=== PATIENT | male | born 1955 | race Caucasian/White ===

== ENCOUNTER 2025-02-26 11:40 | Outpatient (AMB) | payer MEDICARE, BC, SELFPAY ==
--- OUTSIDE RECORDS SUMMARY | 2024-03-17 04:30 | XMS_ITS ---
[facility] Organization [facility] Astrid craven [place] Address [address] [place] [address] Care Team Providers Care Clerk Rating Name Role Phone Lizz Lopez Primary Care Provider Unavail able Black, Gretel Unavailable [phone] Allergies No Known Allergies REASON FOR VISIT Pcp- 01/29, At Risk Footcare Medications Medication SIG (Take, Route, Frequency, Duration) Notes Start Date End Date Status Metoprolol Succinate ER 25 MG 1 tablet Orally Once a day Active Fluticasone Propionate 50 MCG/ACT 1 spray in each nostril Nasally Once a day Active Fluticasone Propionate (Inhal) Not-Taking Multivitamin - 1 tablet Orally Once a day Active Marijuana approved for medical use as prescribed Active Vitamin B-12 1000 MCG 1 tablet Orally On ce a day Active Vitamin D-3 25 MCG (1000 UT) 1 capsule Orally Once a day Active Terazosin HCl 5 MG 1 capsule at bedtime Orally Once a day Active clonazePAM 0.5 MG 1 tablet Orally Once a day Active Rosuvastatin Calcium 20 MG 1 tablet Oral ly Once a day Active Desvenlafaxine ER 100 MG 1 tablet Orally Once a day Active Gabapentin 600 MG 1 tablet Orally Once a day Active Dutasteride 0.5 MG 1 capsule Orally Onc e a day Active cycloSPORINE 0.05 % 1 drop into affected eye Ophthalmic Twice a day Active Omeprazole 20 MG 1 capsule 30 minutes before morning meal Orally Once a day Active Eliquis 2.5 MG as directed Orally Active metFORMIN HCl 500 MG 1 tablet with a umair l Orally twice a day Active Social History Tobacco Use: Social History Observation Description Date Details (start date - stop date) Former Smoker NA - NA Tobacco use other than smoking: Question Answer Notes Are you an other tobacco user? No Tobacco Control (Standard) Question Answer Notes Tobacco use: Former smoker Additional Findings: Tobacco non-user Ex-cigaret te smoker AUDIT-C (Standard) Question Answer Notes Did you have a drink containing alcohol in the p ast year? No Points 0 Interpretation Negative Problems Problem Type SNOMED Code ICD Code Onset Dates Problem Status W/U Status Risk Notes Problem Polyneuropathy due to type 2 diabetes mellitus (268096872) Type 2 diabetes mellitus with diabetic polyneuropathy (E11.42) Active confirmed Problem Essential hypertension (78481683) Essential hypertension (I10) Active confirmed Vital Signs Height 5ft 7in in 03/17/2024 Weight 185 lbs 03/17/2024 BMI 28.97 kg/m2 03/17/2024 Blood pressure systolic 127 mm Hg 03/17/20 24 Blood pressure diastolic 73 mm Hg 024 Heart Rate 83 /min 03/17/2024 Encounters Encounter Location Date Provider Diagnosis [facility] [address] 03/17/2024 Gretel Black Type 2 diabetes rosamaria itus with diabetic polyneuropathy E11.42 and Tinea unguium B35.1 Assessments Encounter Date Diagnosis (ICD Code) Assessment Notes Treatment Notes Treatment Clinical Notes Section Notes 03/17/2024 Type 2 diabetes mellitus with diabetic polyneuropathy (ICD-10 - E11.42) 03/17/2024 Tinea unguium (ICD-10 - B35.1) Plan Of Treatment Next Appt Details Follow Up: prn, Reason: Procedure Notes * Category Sub-Category Detail Notes Debride Nail 6-10 Nail debridement Due to the cl inical pathology outlined in the exam findings, performance of this nail treatment is medically necessary as its management by an unskilled/untrained nonprofessional would put this patients foot and overall health at risk. Therefore, debridement to affected nail(s), as described in exam, was performed extensively to reduce/remove overall nail length, girth, thickness, subungual debris, and necrotic tissue, by manual and/or electrical means through the use of a nail nipper and/or dremel-type magazine grinder loader, to a more viable healthy nail plate or bed tissue 6-10 nails in total. Silver nitrate was used for any petechial bleeding as necessary. Definitive antifungal treatment options, both pharmaceutical and surgical, have been reviewed and discussed with the patient. The patient solely prefers the use of intermittent/as needed professional debridement services for their nail condition and understands the need for additional periodic treatments to maintain effectiveness in symptomatic relief - 34387 Keratoma Treatment Parring or Cutting o f Benign Hyperkeratotic Lesion(s) ... Progress Notes * Carlos Alberto CARVAJALDOB:[birth year] (69 yo M)Acc No.[id number]:03/17/2024 Progress Notes Patient: Carlos Alberto JANE Provider: Charan Valente DPM :1955 A ge:68 Y S ex:Male Date:03/17/2024 Address:[address] [place], [place] [id number] Pcp:Lizz Lopez Subjective: * Chief Complaints: * 1 . Pcp- 01/29. 2. At Risk Footcare. * HPI: A t Risk footcare: Pt States Last PCP Visit: D ate 1 * ROS: G eneral/Constitutional: Nausea d enies, denies. V omiting d enies, denies.?Hunger Thirst d enies, denies. L oss appetite d enies, denies. C hills d enies, denies. F atigue d enies, denies. F ever d enies, denies. N ight Sweats denies, denies. U nexplained weight loss d enies, denies. U nexplained weight gain?denies, denies. H EENTM: Dentures d enies, denies. D izziness d enies, denies. G lasses/contacts a dmits. R etinopathy d enies, denies. B lurred/double vision d enies, denies. T MJ d enies, denies. D ischarge/drainage d enies, denies. Implants d enies, denies. S ore throat d enies, denies. D ental implants a dmits. H grodon of hearing d enies, denies. D ifficulty chewing/swallowing/speaking d enies, denies. N ose bleeds d enies, denies. S ore mouth d enies, denies. ? R espiratory: On Oxygen d enies, denies. P neumonia/pleurisy d enies, denies. B ronchitis d enies, denies. E mphysema d enies, denies. C oughing?denies, denies. C ough blood d enies, denies. S hortness of breath d enies, denies. W heezing d enies, denies. C ardiovascular: Pacemaker d enies, denies. M MILKING MACHINE OPERATOR d enies, denies.?WPW d enies, denies. C HF d enies, denies. H eart attack d enies, denies.?Septal defect d enies, denies. R apid beat a dmits. C hest pain d enies, denies. A trial Fib. d enies, denies. M urmur/Palpitations d enies, denies. ? G astrointestinal: Hemorrhoids d enies, denies. S tomach/Abdominal pain?denies, denies. D ark blood stool d enies, denies. I rritable bowel d enies, denies. C onstipation d enies, denies. D iarrhea d enies, denies. H ematology: Swelling d enies, denies. C lots d enies, denies.?Varicose Veins d enies, denies. B ruising a dmits. B leeding problem d enies, denies. G enitourinary: Blood urine d enies, denies. F requent/Painfu/urination/bladder control d enies, denies. K idney stones d enies, denies. I nfection (UTI)?denies, denies. N ephropathy a dmits. s ex trans dis (STD) d enies, denies. P rostate d enies, denies. M usculoskeletal: Hammertoes d enies, denies. B unions d enies, denies. B ack Pain a dmits. M uscle Cramps/ Resting d enies, denies. M uscle cramps / walking d enies, denies. G eneralized aches and pains a dmits. W eakness d enies, denies. I nteg.: Montero d enies, denies. S cars d enies, denies. C orns/calluses d enies, denies. I ngrown nails a dmits. P ainful nails a dmits. O pen Sores d enies, denies. R ashes d enies, denies. N eurologic: Difficulty sleeping d enies, denies. B rain disorder?denies, denies. N umbness a dmits. B alance trouble a dmits. C onfusion d enies, denies. F ainting/blackouts d enies, denies. T ingling d enies, denies. T remors d enies, denies. * Medical History: A nxiety, Back,Hip,and Knee pain, CAD (Cholesterol), Covid-19, Crohns disease, Diabetes mellitus, High Blood Pressure, Numbness, Reflux ( GERD), Stomach ulcer, Measles, Mumps, Chicken pox, DVT ankle- to butt. * Surgical History: a ppendectomy , colonoscopy . * Hospitalization/Major Diagno stic Procedure: D enies Past Hospitalization. * Family History: M other: alive. F ather: , diabetes. * Social History: T obacco Use: T obacco use other than smoking A re you an other tobacco user? N o Tobacco Control (Standard) T obacco use: F ormer smoker A dditional Findings: Tobacco non-user E x-cigarette smoker D rugs/Alcohol: D rugs H ave you used drugs other than those for medical reasons in the past 12 months? N o M iscellaneous: C affeine: yes, 1-2 cups per day. Children: yes, 2. Exercise: no. Marital status: . 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 D rug/Alcohol: A FRANCISCO-C (Standard) D id you have a drink containing alcohol in the past year? N o P oints 0 I nterpretation N egative * Medications: T aking Vitamin D-3 25 MCG (1000 UT) Capsule 1 capsule Orally Once a day , Taking Vitamin B-12 1000 MCG Tablet 1 tablet Orally Once a day , Taking Multivitamin - Tablet 1 tablet Orally Once a day , Taking Marijuana approved for medical use as prescribed , Taking Metoprolol Succinate ER 25 MG Tablet Extended Release 24 Hour 1 tablet Orally Once a day , Taking Fluticasone Propionate 50 MCG/ACT Suspension 1 spray in each nostril Nasally Once a day , Taking metFORMIN HCl 500 MG Tablet 1 tablet with a meal Orally twice a day , Taking Eliquis 2.5 MG Tablet as directed Orally , Taking Desvenlafaxine ER 100 MG Tablet Extended Release 24 Hour 1 tablet Orally Once a day , Taking Gabapentin 600 MG Tablet 1 tablet Orally Once a day , Taking Dutasteride 0.5 MG Capsule 1 capsule Orally Once a day , Taking cycloSPORINE 0.05 % Emulsion 1 drop into affected eye Ophthalmic Twice a day , Taking Omeprazole 20 MG Capsule Delayed Release 1 capsule 30 minutes before morning meal Orally Once a day , Taking Rosuvastatin Calcium 20 MG Tablet 1 tablet Orally Once a day , Taking Terazosin HCl 5 MG Capsule 1 capsule at bedtime Orally Once a day , Taking clonazePAM 0.5 MG Tablet 1 tablet Orally Once a day , Not-Taking/PRN Fluticasone Propionate (Inhal) , Medication List reviewed and reconciled with the patient * Allergies: N .K.D.A. Objective: * Vitals: H t: 5ft 7in, Wt:185, BMI:28.97, Shoe size: 10 WW, BP:127/73mm Hg, HR:83/min, BS: not taken, Ht-cm: 170.18 cm, Wt-k.91 kg. * P ast Orders: L ab:HEMOGLOBIN A1C (GLYCOHEMOGLOBIN) (Order Date - 12/09/2023) (Collection Date & Time - 12/23/2023 09:25 AM) Value Reference Range TOTAL HEMOGLOBIN (HGBA1C) 6.6 * Examination: O phthalmology Referral: DIABETES EYE EXAM P rocedure Performed: Y anna Gonsalez ate of Exam Performed 0 12/09/2023 D iabetic Retinopathy Screening: Y es F indings of Diabetic Eye Exam: n o retinopathy N eurological: SENSORY: Neurological exam demonstrates, reduced light touch sensation, reduced sharp/dull pin prick discrimination , B/L, 5.07 monofilament test performed at plantar aspects of 5 varied sites per foot shows sensation, reduced , B/L. N ails: NAILS are: E longated, overgrown, dystrophic, lytic, greater than 3mm thick, discolored and friable with crumbly malodorous subungual debris. ? D ermatologic: SKIN FINDINGS: S kin exam reveals Keratotic lesion(s) located at. V ascular: DP PULSES (B): _ ____. O rthopedic: MUSCLE STRENGTH: 5 /5 all groups in a symmetrical fashion, B/L. G eneral Examination: GENERAL APPEARANCE: Giselle guillermo a pleasant, alert, well nourished, well-developed, well hydrated individual, who demonstrates proper attention to hygiene/body habitus, and is in no acute distress, Pt serves as own historian for office visit today. ORIENTED: p cristobalon, place, and time. Assessment: * Assessment: 1. T ype 2 diabetes mellitus with diabetic polyneuropathy - E11.42 (Primary) 2 . T inea unguium - B35.1 Plan: * Treatment: * Procedures: D ebride Nail 6-10: Nail debridement D ue to the clinical pathology outlined in the exam findings, performance of this nail treatment is medically necessary as its management by an unskilled/untrained nonprofessional would put this patients foot and overall health at risk. Therefore, debridement to affected nail(s), as described in exam, was performed extensively to reduce/remove overall nail length, girth, thickness, subungual debris, and necrotic tissue, by manual and/or electrical means through the use of a nail nipper and/or dremel-type magazine grinder loader, to a more viable healthy nail plate or bed tissue 6-10 nails in total. Silver nitrate was used for any petechial bleeding as necessary. Definitive antifungal treatment options, both pharmaceutical and surgical, have been reviewed and discussed with the patient. The patient solely prefers the use of intermittent/as needed professional debridement services for their nail condition and understands the need for additional periodic treatments to maintain effectiveness in symptomatic relief - 20561. K eratoma Treatment: Parring or Cutting of Benign Hyperkeratotic Lesion(s) . ...? * Procedure Codes: 1 1721 DEBRIDE NAIL, 6 OR MORE, Modifiers: XS * Preventive Medicine: Screening/Special Tests: F all Risk Assessment: P erformed Screening: N o falls in the past year F ALLS: Screening for Future Fall Risk Have you had two or more falls in the past year? N o Have you had any falls with injury in the past year? N o * Follow Up: p rn * Images: * The named appointment provid er may or may not be the originator of this progress note, and it is not deemed complete until electronically signed by the appointment provider. Sign off status: Pending * Provider: Charan Valente DPM Date: 05/18/2023 Generated for John feldman/Young/Kaitsmangeline on: 04/28/2024 12:29 PM EST History and Physical Notes * HPI (History of Present Illness) Category Sub-Category Detail Notes Category Not es At Risk footcare Pt States Last PCP Visit: Date: 4 Examination Category Sub-Category Detail Notes Category Not es Neurological SENSORY: Neurological exa m demonstrates, reduced light touch sensation, reduced sharp/dull pin prick discrimination , B/L, 5.07 monofilament test performed at plantar aspects of 5 varied sites per foot shows sensation, reduced , B/L Dermatologic SKIN FINDINGS: Skin exam reveal s Keratotic lesion(s) located at Orthopedic MUSCLE STRENGTH: 5/5 all groups in a symmetrical fashion, B/L General Examination GENERAL APPEARANCE: Reveals a pleasant, alert, well nourished, well-developed, well hydrated individual, who demonstrates proper attention to hygiene/body habitus, and is in no acute distress, Pt serves as own historian for office visit today ORIENTED: person, place, and t malika Ophthalmology Referral DIABETES EYE EXAM Procedure Perform ed:: Yes Date of Exam Performed: 12/09/2023 Diabetic Retinopathy Screening:: Yes Findings of Diabetic Eye Exam:: no retin opathy Vascular DP PULSES (B): Nails NAILS are: Elongated, overg rown, dystrophic, lytic, greater than 3mm thick, discolored and friable with crumbly malodorous subungual debris
[2025-02-26 11:46] VITALS: BMI 29.3
--- NOTE | 2025-02-26 11:46 | A.PHYSOV ---
Vital Signs 02/26/25 11:46 Height 5 ft 7.5 in Weight 190 lb BMI 29.3 Intake Visit Reasons: NPV VMA Ref- Eval for back injection Intake Note: Patient is a 41 year old patient here for a 1 month follow up today. Data Communications Software Consultant Required: No Allergies No Known Allergies Allergy (Verified 02/26/25 11:47) HPI Comments Details: History of Present Illness The patient is a 69-year-old individual presenting with chronic pain. The pain primarily affects the legs and is exacerbated by prolonged standing or walking. The patient has a history of neuroforaminal stenosis and herniated discs, contributing to the pain. 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 The patient has been diagnosed with multiple herniated discs in the neck, with previous consultations indicating surgical intervention would require multiple operations, which the patient has declined. The patient has a history of ulcers in the small intestine, likely due to excessive use of NSAIDs in the past, which now limits the use of such medications. The patient manages pain primarily with marijuana, avoiding traditional pain medications due to past negative experiences and social stigma. Recently, the patient sustained a toe fracture, further complicating mobility and exacerbating pain levels. MRI reported below does confirm compression of the left S1 nerve root. He also has varying degrees of neuroforaminal stenosis. Patient has failed conservative treatment. I reviewed the referring provider's no prior to consultation. [facility] Surgical History History of eye surgery (Unknown) Hx of appendectomy (Unknown) Social History Alcohol intake: current Alcohol intake frequency: does not drink Patient Tobacco Use Status: Former Tobacco user Tobacco use type: Cigarette Substance Use Type: Marijuana Review of Systems Narrative Review of Systems - Musculoskeletal: Reports pain in legs exacerbated by standing and walking. - Gastrointestinal: Reports history of ulcers in the small intestine. - Neurological: Denies tactile pain, reports deep pain radiating from back to legs. Physical Exam Exam Exam: Physical Exam Lumbar Spine: Examination of his lumbar spine, there is no visible swelling or deformity. He is tender to lower lumbar facets particularly on the left. He has full range of motion of his lumbar spine. He does have an increase in pain with facet loading. Special Tests: Lhermittes sign was negative Heel Toe walk is normal Left straight leg raise: Positive left Right straight leg raise: Negative Special tests Gina test is negative Ganslen's test is negative SI Joint compression test negative Olive test negative Piriformis stretch is negative Lower Extremities: Full range of motion bilateral lower extremities. No calf pain or edema Neuro: Sensation: Intact to lower extremities bilaterally Strength L2 (Psoas): 5/5 on the left and 5/5 on the right. L3 (Quads): 5/5 on the left and 5/5 on the right. L4 (Ant tibialis): 5/5 on the left and 5/5 on the right. L5 (EHL) 5/5 on the left and 5/5 on the right. S1 (Gastroc): 5/5 on the left and 5/5 on the right. DTR L4: (Patellar) Left 0 Right 0 S1: (Achilles) Left 0 Right 0 Babinski Downgoing No pathologic clonus. No involuntary movement. Vital Signs: BMI result Body Mass Index 29.3 Assessment & Plan Assessment & Plan (1) Lumbar radiculopathy: Code(s): M54.16 - Radiculopathy, lumbar region Category: Medical (2) Lumbar spondylosis: Code(s): M47.816 - Spondylosis without myelopathy or radiculopathy, lumbar region Category: Medical Plan Pain Management - Affect: Pain impacts daily activities and mood, limiting engagement in hobbies. - Analgesia: Current pain level is 6/10; managed with marijuana. - Adverse Effects: History of ulcers limits use of NSAIDs. - Activities of Daily Living: Pain restricts mobility and ability to perform woodworking. - Aberrant Drug Related Behaviors: Avoidance of traditional pain medications due to past negative experiences. Plan Patient was informed and verbally consented to the use of an ambient scribe for clinic note documentation during this visit. 1. Neuroforaminal Stenosis The plan involves administering a cortisone injection to address the neuroforaminal stenosis, particularly targeting the left S1 and L4-5 regions. The injection will be performed under x-ray guidance to ensure precision and minimize risks. An antibiotic, Levaquin, will be prescribed to be taken an hour before the procedure to prevent infection. The goal is to achieve at least a 50% reduction in pain for three to six months. 2. Herniated Discs The patient has declined surgical intervention for the herniated discs due to the extensive nature of the required surgeries. The focus remains on conservative management, including the proposed cortisone injection to alleviate associated pain. 3. Ulcers In The Small Intestine The patient is advised to avoid NSAIDs due to a history of ulcers in the small intestine. Pain management is primarily through the use of marijuana, as traditional pain medications are avoided. 4. Chronic Pain Chronic pain management includes the use of marijuana and consideration of cortisone injections to reduce inflammation and pain. The patient is encouraged to maintain activity levels as tolerated and to avoid activities that exacerbate pain. Discussion Notes We discussed the option of a cortisone injection to manage the patient's neuroforaminal stenosis, targeting the left S1 and L4-5 regions. The injection will be performed under x-ray guidance to ensure precision and minimize risks. An antibiotic, Levaquin, will be prescribed to be taken an hour before the procedure to prevent infection. The goal is to achieve at least a 50% reduction in pain for three to six months. We also reviewed the patient's history of ulcers, advising avoidance of NSAIDs, and discussed the use of marijuana for pain management. Follow-up will occur three weeks post-injection to assess efficacy and discuss further options if necessary. Patient Instructions - Take Levaquin one hour before the cortisone injection appointment. - Avoid NSAIDs due to history of ulcers. - Limit weight-bearing activities to allow the toe fracture to heal. - Maintain activity levels as tolerated, avoiding activities that exacerbate pain. - Follow up in three weeks post-injection to assess pain management efficacy. Medications: New levofloxacin 1 po, 1 hour prior to procedure 500 mg PO DAILY 1 tab 0RF M47.816 - Spondylosis without myelopathy or radiculopathy, lumbar region, M54.16 - Radiculopathy, lumbar region Coding Level of Care Code Tele New Pt Level 4 (40174) Diagnoses Lumbar radiculopathy M54.16 Lumbar spondylosis M47.816
--- OUTSIDE RECORDS SUMMARY | 2025-02-26 12:29 | XMS_ITS | Patient Health Record ---
Author Organization [facility] Astrid craven [place] Address [address] [facility] [place] [address] Care Team Providers [place] Library Director Name Role Phone Lizz Lopez Primary Care Provider Unavail able Black, Gretel Unavailable [phone] Allergies No Known Allergies Reason For Referral No Information Medications Medication SIG (Take, Route, Frequency, Duration) Notes Start Date End Date Status Metoprolol Succinate ER 25 MG 1 tablet Orally Once a day Active Terazosin HCl 5 MG 1 capsule at bedtime Orally Once a day Active Fluticasone Propionate 50 MCG/ACT 1 spray in each nostril Nasally Once a day Active clonazePAM 0.5 MG 1 tablet Orally Once a day Active Fluticasone Propionate (Inhal) Not-Taking metFORMIN HCl 500 MG 1 tablet with a umair l Orally twice a day Active cycloSPORINE 0.05 % 1 drop into affected eye Ophthalmic Twice a day Active Multivitamin - 1 tablet Orally Once a day Active Omeprazole 20 MG 1 capsule 30 minutes before morning meal Orally Once a day Active Marijuana approved for medical use as prescribed Active Rosuvastatin Calcium 20 MG 1 tablet Oral ly Once a day Active Vitamin B-12 1000 MCG 1 tablet Orally On ce a day Active Eliquis 2.5 MG as directed Orally Active Desvenlafaxine ER 100 MG 1 tablet Orally Once a day Active Gabapentin 600 MG 1 tablet Orally Once a day Active Vitamin D-3 25 MCG (1000 UT) 1 capsule Orally Once a day Active Dutasteride 0.5 MG 1 capsule Orally Onc e a day Active Social History Tobacco Use: [...] Polyneuropathy due to type 2 diabetes mellitus (028767922) Type 2 diabetes mellitus with diabetic polyneuropathy (E11.42) Active confirmed Problem Essential hypertension (17214671) Essential hypertension (I10) Active confirmed Encounters Encounter Location Date Provider [facility] [address] [place] [address] [facility]17[facility] [place] [address] [place] [address] 03/17/2024 Gretel Valente Plan Of Treatment No Information Insurance Providers Payer Name Payer Address Payer Phone Subscriber Number Group Number Insured Name Patient Relationship to Insured Coverage Start Date Coverage End Date [employer] [address] [place] [address] [id number] Carlos Alberto Bey Self - patient is the insured [facility] [address] [place] [address] [id number] Carlos Alberto Bey Self - patient is the insured Medical (General) History Medical History History ICD Code Anxiety Back,Hip,and Knee pain CAD (Cholesterol) covid-19 Crohns disease Diabetes mellitus High Blood Pressure Numbness Reflux ( GERD) Stomach ulcer Measles Mumps Chicken pox DVT ankle- to butt Surgical History Surgery Date(Month/Year) appendectomy colonoscopy
--- OUTSIDE RECORDS SUMMARY | 2025-02-26 12:30 | XMS_ITS | Encounter Summary ---
Author Organization [facility] Address [address] [place] [address] Care Team Providers Care Manager Landscape Name Role Phone Lizz Lopez MD Primary Care Provider [phone] Encounter Details Date Type Department Care Team (Late st Contact Info) Description 06/15/2024 Lab Requisition [facility] - Main Lab [address] [facility] [place] [id number] Luh Fitzpatrick MD [address] [place] [address] Benign prostatic hyperplasia with lower urinary tract symptoms Social History Tobacco Use Types Packs/Day Years Used Date Smoking Tobacco: Never Assessed Sex and Gender Information Value Date Recorded Sex Assigned at Not on file Legal Sex Male 12:52 AM EST Gender Identity Not on file Sexual Orientation Not on file documented as of this encounter Plan of Treatment Upcoming Encounters Date Type Department Care Team (Late st Contact Info) Description 04/28/2025 10:00 AM EST Office Visit Orthopedic Surgery - [place] [address] [address] Nathaniel Rhodes, DPM [address] [address] documented as of this encounter Procedures Procedure Name Priority Date/Time Associated Diagnosis Comments PROSTATE SPECIFIC ANTIGEN DIAGNOSTIC Routine 06/15/2024 11:00 AM EDT Benign prostatic hyperplasia with lower urinary tract symptoms documented in this encounter Results * Prostate specific antigen diagnostic (06/15/2024 11:00 AM EDT) PSA 1.09 0.00 - 4.00 ng/mL LAB CHEMISTRY METHOD 06/15/2024 2:32 PM EDT [facility] Blood Venous blood specimen / Unknown 06/15/2024 11:00 AM EDT 06/15/2024 1:34 PM EDT Narrative [facility] - 06/15/2024 2:32 PM EDT The Siemens [employer] Chemiluminescent Immunoassay is used. Results obtained with different assay methods or kits cannot be used interchangeably. Results cannot be interpreted as absolute evidence of the presence or absence of malignant disease. us Luh Fitzpatrick MD LAB BLOOD ORDERABLES [facility] al Result [facility] [address] [place] [address], documented in this encounter Visit Diagnoses Diagnosis Benign prostatic hyperplasia with lower urinary tract symptoms documented in this encounter Care Teams Manager Landscape Relationship Specialty Start Date End Date Lizz Lopez MD [address] [phone] PCP - General Internal Medicine 06/15/24 documented as of this encounter
--- OUTSIDE RECORDS SUMMARY | 2025-02-26 12:30 | XMS_ITS | Data Portability ---
Author Organization [facility], Main Office Address [address] [place] [address] Care Team Providers Care Director Of First Impressions Name Role Phone BARB SHEARER Referring Provider [facility] Former CHIKA ARREDONDO Speech Therapy Director [facility] Sports Medic ine [facility] Breast Surgeon [phone] BRIANNE GRAY DPM Travel [employer]ota BARB COLE Urologist [phone] [facility] Charge Account Clerk REGGIE TAVERAS Teacher Of The Deaf/Hard Of Hearing LIZZ LOPEZ Primary Care Provider EMILY SOTO Automatic Glove Former Assessment No assessment recorded. Plan of Treatment Reminders Order Date Submit Date Provider Last Modified By Organization Details Last Modified Time Details Appointments FOLLOW UP 2025 08:45A M LIZZ LOPEZ MD Not available Not available Not available Lab CBC w/ auto diff 2024 025 [facility], [address] [place], [address], 01/15/2025 06:08:11 TSH, ultra-sen sitive, serum 2024 025 [facility], [address] [place], [address], 01/15/2025 06:08:13 BMP, serum or plasma 2024 025 [facility], [address], [place], [address], 01/15/2025 06:08:12 hepatic function panel, serum 2024 025 [facility], [address], [place], [address], 01/15/2025 16:06:51 lipid panel, serum 2024 025 [facility], [address], [place], [address], 01/15/2025 06:08:12 HbA1c (hemoglob in A1c), blood 2024 025 [facility], [address], [place], [address], 01/15/2025 16:06:52 albumin/c reatinine , ratio, urine 2024 025 [facility], [address], [place], [address], 01/12/2025 11:28:01 AST/SGOT (aspartat e aminotran sferase), serum or plasma 2023 024 [facility] (Centralized Electronic Ordering - All Locations), Patient Can Go To The Location Of Their Choice, 12/20/2023 22:08:52 lipid panel, serum 2023 024 [facility], [address], [place], [address], 12/20/2023 22:08:50 ALT (alanine aminotran sferase), serum or plasma 2023 024 [facility] (Centralized Electronic Ordering - All Locations), Patient Can Go To The Location Of Their Choice, 12/20/2023 22:08:52 BMP, serum or plasma 2023 024 [facility], [address], [place], [address], 12/10/2023 10:36:15 CBC w/ auto diff 2023 024 [facility], [address], [place], [address], 12/20/2023 22:08:49 TSH, ultra-sen sitive, serum 2023 024 [facility], [address], [place], [address], 12/20/2023 22:08:51 BMP, serum or plasma 2023 024 [facility], [address], [place], [address], 12/20/2023 22:08:50 PSA, serum or plasma - Screening 2023 024 [facility], [address], [place], [address], 12/20/2023 22:08:51 HbA1c (hemoglob in A1c), blood 2023 024 [facility], [address], [place], [address], 06/11/2023 17:06:02 lipid panel, serum 2023 024 [facility], [address], [place], [address], 06/11/2023 21:28:18 ALT (alanine aminotran sferase), serum or plasma 2023 024 [facility], [address], [place], [address], 06/11/2023 21:28:17 Referral mental health counselor referral 2024 025 seema Not available 01/13/2025 08:06:22 general surgeon referral - lipoma on back has grown over the year, sent to surgery for removal 2024 025 seema [facility], [address] [place] [address] [address], [place], [address], 09/10/2024 15:09:06 podiatris t referral - pt is requestin g for insoles 2024 025 Not available 07/29/2024 16:44:57 Procedures None recorded. Surgeries None recorded. Imaging MRI, lumbar spine, w/o contrast - worsening pain with bilateral pain radiating down the legs 2024 025 [facility] ([facility]), [address], [place], [address], 01/19/2025 17:32:25 Medication Orders gabapenti n 600 mg tablet 2024 025 [id number], [address] [place] [address], [id number], 01/12/2025 11:28:00 desvenlaf axine succinate ER 25 mg tablet,ex tended release 24 hr 2024 025 [facility] #[id number], [address] [place] [address], [id number], 06/08/2024 10:19:09 clonazepa m 0.5 mg tablet 2023 024 [id number], [address] [place] [address], [id number], 06/10/2023 12:38:19 Patient TargetsNo targets recorded. Patient Instructions Encounter Date Encounter Id Patient Instructions Last Modified By Organization Details Last Modified Time 06/10/2023 [id number] high blood pressure: care instructions Not available 06/10/2023 11:05:33 learning about high blood pressure Not available 06/10/2023 11:05:33 12/10/2023 [id number] sleep apnea: car e instructions Not available 12/10/2023 10:36:07 high blood pressure: care instructions Not available 12/10/2023 10:36:07 learning about high blood pressure Not available 12/10/2023 10:36:07 deep vein thrombosis: care instructions Not available 12/10/2023 10:36:07 learning about deep vein thrombosis Not available 12/10/2023 10:36:07 benign prostatic hyperplasia: care instructions Not available 12/10/2023 10:36:07 06/08/2024 [id number] sleep apnea: car e instructions Not available 06/08/2024 10:19:03 high blood pressure: care instructions Not available 06/08/2024 10:19:03 learning about high blood pressure Not available 06/08/2024 10:19:03 deep vein thrombosis: care instructions Not available 06/08/2024 10:19:03 learning about deep vein thrombosis Not available 06/08/2024 10:19:03 09/08/2024 [id number] sleep apnea: car e instructions Not available 09/08/2024 10:15:27 deep vein thrombosis: care instructions Not available 09/08/2024 10:15:27 learning about deep vein thrombosis Not available 09/08/2024 10:15:27 benign prostatic hyperplasia: care instructions Not available 09/08/2024 10:15:27 01/12/2025 [id number] sleep apnea: car e instructions Not available 01/12/2025 11:27:46 benign prostatic hyperplasia: care instructions Not available 01/12/2025 11:27:46 preventing falls : care instructions Not available 01/12/2025 11:27:45 well visit, over 65: care instructions Not available 01/12/2025 11:27:46 Mental Health Information Not available 01/12/2025 12:47:17 learning about stress Not available 01/12/2025 12:47:17 learning about mood disorders Not available 01/12/2025 12:47:17 deep vein thrombosis: care instructions Not available 01/12/2025 11:27:46 learning about deep vein thrombosis Not available 01/12/2025 11:27:45 Reason for Referral Travel Cota Referral for Well controlled type 2 diabetes mellitus pt is requesting for insoles Referring Physician: Lizz Lopez [facility], Encounter Date: 06/08/2024 General Surgeon Referral for Lipoma of back lipoma on back has grown over the year, sent to surgery for removal Referring Physician: Lizz Lopez [facility], Encounter Date: 09/08/2024 Mental Health Counselor Refe rral for Mood disorder Referring Physician: Lizz Lopez [facility], Encounter Date: 01/12/2025 Results Created Date Observation Date Name Description Value Unit Range Abnormal Flag Note LastModifiedBy Organization Detail LastModifiedTime 06/16/19 25 06/15/2024 PROST ATE SPECI FIC ANTIG EN DIAGN OSTIC PSA 1.09 NG/mL 0.00-4 .00 Not Available [address], [address], 06/15/2024 14:34:08 06/16/19 25 06/15/2024 PROST ATE SPECI FIC ANTIG EN DIAGN OSTIC note See Report [facility], [address], [place], [place] [address] Not Available [address], [address], 06/15/2024 14:34:08 06/11/19 24 06/11/2023 HEMOG LOBIN A1C hemoglobin A1C 6.4 % (4.0-5 .6) high MONIT ORING : In known diabe tic patie nts, hemog lobin A1c targe ts shoul d be discu ssed with healt h care provi richard. DIAGN OSTIC USE: The Ameri can Diabe margarito Assoc iatio n (ADA) and the World Healt h Organ izati on (WHO) recom mend the use of HbA1c to diagn ose diabe margarito using a thres hold of 6.5%. Patie nts who have an HbA1c betwe en 5.7% and 6.4% are consi dered at incre ased risk for devel oping diabe margarito in the futyonatan satishSawyer PANFILODAPHNE ON: False ly low HbA1c resul ts may be obser stephanie in patie nts with hemol ytic anemi a, homoz ygous forms of abnor mal hemog lobin (e.g. SS, CC, SC), pregn maria teresa, recen t blood loss or hemog lobin F great er than 7%. Fruct osami ne may be used as an alter day test in these cases . REFER ENCE: ADA: Stand ards of Medic al Care in Diabe margarito 2019, The Journ al of Clini jones and Appli ed Resea rch and Educa tion Volum e 43, Suppl ement 1 Not Available [facility] (Centralized Electronic Ordering - All Locations) Patient Can Go To The Location Of Their Choice, 06/11/2023 17:06:02 06/11/1906/11/2023 ALT ALT 25 U/L (0-41) Not Available [facility] (Centralized Electronic Ordering - All Locations) Patient Can Go To The Location Of Their Choice, 06/11/2023 21:28:17 06/11/1906/11/2023 LIPID PANEL cholesterol, total 158 mg/dL (<200) Not Available [facility] ([facility] Ordering - All Locations) Patient Can Go To The Location Of Their Choice, 06/11/2023 21:28:18 06/11/1906/11/2023 LIPID PANEL triglyceride 131 mg/dL (<150) Not Available [facility] ([facility] Order[facility] - All Locations) Patient Can Go To The Location Of Their Choice, 06/11/2023 21:28:18 06/11/1906/11/2023 LIPID PANEL HDL chol 37 mg/dL (>39) low Not Available [facility] (Centralized Electronic Ordering - All Locations) Patient Can Go To The Location Of Their Choice, 06/11/2023 21:28:18 06/11/192024 LIPID PANEL LDL cholesterol, calculated 95 mg/dL (0-130 ) Not Available [facility] (Centralized Electronic Ordering - All Locations) Patient Can Go To The Location Of Their Choice, [address] 06/11/2023 21:28:18 06/11/19 24 06/11/2023 LIPID PANEL non HDL cholesterol (calc) 121 mg/dL (<160) Not Available [facility] ([facility]ized [facility] Ordering - All Locations) Patient Can Go To The Location Of Their Choice, [address] 06/11/2023 21:28:18 12/12/1912/12/2023 CBC WITH DIFFE RENTI AL/PL ATELE T WBC 7.8 x10e3 /uL 3.4-10 .8 normal Not Available [facility] ([facility]) [address] [place], [address], 12/20/2023 22:08:49 12/12/19 24 12/12/2023 CBC WITH DIFFE RENTI AL/PL ATELE T RBC 5.40 x10e6 /uL 4.14-5 .80 normal Not Available [facility] ([facility]) [address] [place], [address], 12/20/2023 22:08:49 12/12/19 24 12/12/2023 CBC WITH DIFFE RENTI AL/PL ATELE T hemoglobin 16.2 g/dL 13.0-1 7.7 normal Not Available [facility] ([facility]) [address] [place], [address], 12/20/2023 22:08:49 12/12/19 24 12/12/2023 CBC WITH DIFFE RENTI AL/PL ATELE T hematocrit 49.1 % 37.5-5 1.0 normal Not Available [facility] ([facility]) [address] [place], [address], 12/20/2023 22:08:49 12/12/19 24 12/12/2023 CBC WITH DIFFE RENTI AL/PL ATELE T MCV 91 fL 79-97 normal Not Available [facility] ([facility]) [address] [facility], [place], [address], 12/20/2023 22:08:49 12/12/19 24 12/12/2023 CBC WITH DIFFE RENTI AL/PL ATELE T MCH 30.0 pg 26.6-3 3.0 normal Not Available [facility] ([facility]) [address] [facility], [place], [address], 12/20/2023 22:08:49 12/12/19 24 12/12/2023 CBC WITH DIFFE RENTI AL/PL ATELE T MCHC 33.0 g/dL 31.5-3 5.7 normal Not Available [facility] ([facility]) [address] [facility], [place], [address], 12/20/2023 22:08:49 12/12/19 24 12/12/2023 CBC WITH DIFFE RENTI AL/PL ATELE T RDW 12.7 % 11.6-1 5.4 Not Available [facility] ([facility]) [address] [place], [address], 12/20/2023 22:08:49 12/12/19 24 12/12/2023 CBC WITH DIFFE RENTI AL/PL ATELE T platelets 155 x10e3 /uL 150-45 0 normal Not Available [facility] ([facility]) [address] [place], [address], 12/20/2023 22:08:49 12/12/19 24 12/12/2023 CBC WITH DIFFE RENTI AL/PL ATELE T neutrophils 71 % not estab. normal Not Available [facility] ([facility]) [address] [place], [address], 12/20/2023 22:08:49 12/12/19 24 12/12/2023 CBC WITH DIFFE RENTI AL/PL ATELE T lymphs 19 % not estab. normal Not Available [facility] ([facility]) [address] [place], [address], 12/20/2023 22:08:49 12/12/19 24 12/12/2023 CBC WITH DIFFE RENTI AL/PL ATELE T monocytes 7 % not estab. normal Not Available [facility] ([facility]) [address] [facility], [place], [address], 12/20/2023 22:08:49 12/12/19 24 12/12/2023 CBC WITH DIFFE RENTI AL/PL ATELE T eos 2 % not estab. normal Not Available [facility] ([facility]) [address] [facility], [place], [address], 12/20/2023 22:08:49 12/12/19 24 12/12/2023 CBC WITH DIFFE RENTI AL/PL ATELE T basos 1 % not estab. normal Not Available [facility] ([facility]) [address] [facility], [place], [address], 12/20/2023 22:08:49 12/12/19 24 12/12/2023 CBC WITH DIFFE RENTI AL/PL ATELE T immature cells BARREL CLEANER Not Available [facility] ([facility]) [address] [place], [address], 12/20/2023 22:08:49 12/12/19 24 12/12/2023 CBC WITH DIFFE RENTI AL/PL ATELE T neutrophils (absolute) 5.6 x10e3 /uL 1.4-7. 0 normal Not Available [facility] ([facility]) [address] [place], [address], 12/20/2023 22:08:49 12/12/19 24 12/12/2023 CBC WITH DIFFE RENTI AL/PL ATELE T lymphs (absolute) 1.5 x10e3 /uL 0.7-3. 1 normal Not Available [facility] ([facility]) [address] [place], [address], 12/20/2023 22:08:49 12/12/19 24 12/12/2023 CBC WITH DIFFE RENTI AL/PL ATELE T monocytes(ab solute) 0.5 x10e3 /uL 0.1-0. 9 normal Not Available [facility] ([facility]) [address] [facility], [place], [address], 12/20/2023 22:08:49 12/12/19 24 12/12/2023 CBC WITH DIFFE RENTI AL/PL ATELE T eos (absolute) 0.2 x10e3 /uL 0.0-0. 4 normal Not Available [facility] ([facility]) [address] [facility], [place], [address], 12/20/2023 22:08:49 12/12/19 24 12/12/2023 CBC WITH DIFFE RENTI AL/PL ATELE T baso (absolute) 0.0 x10e3 /uL 0.0-0. 2 normal Not Available [facility] ([facility]) [address] [facility], [place], [address], 12/20/2023 22:08:49 12/12/19 24 12/12/2023 CBC WITH DIFFE RENTI AL/PL ATELE T immature granulocytes 0 % not estab. Not Available [facility] ([facility]) [address] [facility], [place], [address], 12/20/2023 22:08:49 12/12/19 24 12/12/2023 CBC WITH DIFFE RENTI AL/PL ATELE T immature grans (abs) 0.0 x10e3 /uL 0.0-0. 1 Not Available [facility] ([facility]) [address] [place], [address], 12/20/2023 22:08:49 12/12/19 24 12/12/2023 CBC WITH DIFFE RENTI AL/PL ATELE T NRBC BARREL CLEANER Not Available [facility] ([facility]) [address], [place], [address], 12/20/2023 22:08:49 12/12/19 24 12/12/2023 CBC WITH DIFFE EFREN AL/PHYLICIA Farrar hematology comments: BARREL CLEANER Not Available [facility] ([facility]) [address], [place], [address], 12/20/2023 22:08:49 12/12/19 24 12/12/2023 BASIC METAB OLIC PANEL (8) glucose 122 mg/dL 70-99 above high normal Not Available [facility] ([facility]) [address], [place], [address], 12/20/2023 22:08:50 12/12/19 24 12/12/2023 BASIC METAB OLIC PANEL (8) BUN 13 mg/dL 8-27 normal Not Available [facility] ([facility]) [address], [place], [address], 12/20/2023 22:08:50 12/12/19 24 12/12/2023 BASIC METAB OLIC PANEL (8) creatinine 1.01 mg/dL 0.76-1 .27 normal Not Available [facility] ([facility]) [address] [facility], [place], [address], 12/20/2023 22:08:50 12/12/19 24 12/12/2023 BASIC METAB OLIC PANEL (8) eGFR 81 mL/mi n/1.7 3 >59 normal Not Available [facility] ([facility]) [address] [facility], [place], [address], 12/20/2023 22:08:50 12/12/19 24 12/12/2023 BASIC METAB OLIC PANEL (8) BUN/creatini ne ratio 13 10-24 normal Not Available [facility] ([facility]) [address] [facility], [place], [address], 12/20/2023 22:08:50 12/12/19 24 12/12/2023 BASIC METAB OLIC PANEL (8) sodium 143 mmol/ L 134-14 4 normal Not Available [facility] ([facility]) [address] [place], [address], 12/20/2023 22:08:50 12/12/19 24 12/12/2023 BASIC METAB OLIC PANEL (8) potassium 5.1 mmol/ L 3.5-5. 2 normal Not Available [facility] ([facility]) [address] [place], [address], 12/20/2023 22:08:50 12/12/19 24 12/12/2023 BASIC METAB OLIC PANEL (8) chloride 102 mmol/ L 96-106 normal Not Available [facility] ([facility]) [address] [place], [address], 12/20/2023 22:08:50 12/12/19 24 12/12/2023 BASIC METAB OLIC PANEL (8) carbon dioxide, total 24 mmol/ L 20-29 normal Not Available [facility] ([facility]) [address] [place], [address], 12/20/2023 22:08:50 12/12/19 24 12/12/2023 BASIC METAB OLIC PANEL (8) calcium 9.3 mg/dL 8.6-10 .2 normal Not Available [facility] ([facility]) [address] [place], [address], 12/20/2023 22:08:50 12/12/19 24 12/12/2023 LIPID PANEL cholesterol, total 154 mg/dL 100-19 9 normal Not Available [facility] ([facility]) [address] [place], [address], 12/20/2023 22:08:50 12/12/19 24 12/12/2023 LIPID PANEL triglyceride s 150 mg/dL 0-149 above high normal Not Available [facility] ([facility]) [address] [facility], [place], [address], 12/20/2023 22:08:50 12/12/19 24 12/12/2023 LIPID PANEL HDL cholesterol 33 mg/dL >39 below low normal Not Available [facility] ([facility]) [address] [facility], [place], [address], 12/20/2023 22:08:50 12/12/19 24 12/12/2023 LIPID PANEL VLDL cholesterol jones 27 mg/dL 5-40 Not Available [facility] ([facility]) [address] [facility], [place], [address], 12/20/2023 22:08:50 12/12/19 24 12/12/2023 LIPID PANEL LDL chol calc ([facility]) 94 mg/dL 0-99 Not Available [facility] ([facility]) [address] [facility], [place], [address], 12/20/2023 22:08:50 12/12/19 24 12/12/2023 LIPID PANEL LDL calc comment: BARREL CLEANER Not Available [facility] ([facility]) [address] [facility], [place], [address], 12/20/2023 22:08:50 12/12/19 24 12/20/2023 PROST ATE SPECI FIC ANTIG EN prostate specific antigen 1.063 NG/mL This PSA resul t was deter mined using the Beckm an chemi lumin ometr ic immun oassa y and value s obtai theo canno t be evalu ated inter vizcarra eably with diffe rent assay metho ds or kits. This PSA resul t alone canno t be inter prete d as absol gurpreet evide nce of the prese nce or absen ce of disea se. Refer ence Range : >=40y : 97% of contr ols are <4.0. PSA level s have been repor prosper to corre late with prost ate size. Value s >4.0 are commo n in patie nts with prost atic hyper plasi a. Not Available [facility] [address] [facility], [place], [address], 12/20/2023 22:08:51 12/12/19 24 12/13/2023 TSH RFX ON ABNOR MAL TO FREE T4 TSH 2.860 uIU/m L 0.450- 4.500 normal Not Available [facility] ([facility]) [address] [place], [address], 12/20/2023 22:08:51 12/12/19 24 12/12/2023 AST (SGOT ) AST (SGOT) 27 IU/L 0-40 normal Not Available [facility] ([facility]) [address] [place], [address], 12/20/2023 22:08:52 12/12/19 24 12/12/2023 ALT (SGPT ) ALT (SGPT) 34 IU/L 0-44 normal Not Available [facility] ([facility]) [address] [place], [address], 12/20/2023 22:08:52 12/23/19 24 12/23/2023 HEMOG LOBIN A1C hemoglobin A1C 6.6 % 4.8-5. 6 above high normal Predi abete s: 5.7 - 6.4 Diabe margarito: >6.4 Glyce isaiah contr ol for adult s with diabe margarito: <7.0 Not Available [facility] ([facility]) [address] [place], [address], 12/24/2023 06:08:51 03/23/20 24 03/24/2024 HEMOG LOBIN A1C hemoglobin A1C 6.2 % 4.8-5. 6 above high normal Predi abete s: 5.7 - 6.4 Diabe margarito: >6.4 Glyce isaiah contr ol for adult s with diabe margarito: <7.0 Not Available [facility] ([facility]) [address] [place], [address], 03/24/2024 14:06:10 01/15/20 25 01/14/2025 CBC WITH DIFFE RENTI AL/PL ATELE T WBC 6.9 x10e3 /uL 3.4-10 .8 normal Not Available [facility] ([facility]) [address] [facility], [place], [address], 01/15/2025 06:08:11 01/15/20 25 01/14/2025 CBC WITH DIFFE RENTI AL/PL ATELE T RBC 4.87 x10e6 /uL 4.14-5 .80 normal Not Available [facility] ([facility]) [address] [place], [address], 01/15/2025 06:08:11 01/15/20 25 01/14/2025 CBC WITH DIFFE RENTI AL/PL ATELE T hemoglobin 15.3 g/dL 13.0-1 7.7 normal Not Available [facility] ([facility]) [address] [facility], [place], [address], 01/15/2025 06:08:11 01/15/20 25 01/14/2025 CBC WITH DIFFE RENTI AL/PL ATELE T hematocrit 45.3 % 37.5-5 1.0 normal Not Available [facility] ([facility]) [address] [place], [address], 01/15/2025 06:08:11 01/15/20 25 01/14/2025 CBC WITH DIFFE RENTI AL/PL ATELE T MCV 93 fL 79-97 normal Not Available [facility] ([facility]) [address] [place], [address], 01/15/2025 06:08:11 01/15/20 25 01/14/2025 CBC WITH DIFFE RENTI AL/PL ATELE T MCH 31.4 pg 26.6-3 3.0 normal Not Available [facility] ([facility]) [address] [place], [address], 01/15/2025 06:08:11 01/15/20 25 01/14/2025 CBC WITH DIFFE RENTI AL/PL ATELE T MCHC 33.8 g/dL 31.5-3 5.7 normal Not Available [facility] ([facility]) [address] [facility], [place], [address], 01/15/2025 06:08:11 01/15/2001/14/2025 CBC WITH DIFFE RENTI AL/PL ATELE T RDW 13.3 % 11.6-1 5.4 Not Available [facility] ([facility]) [address] [place], [address], 01/15/2025 06:08:11 01/15/20 25 01/14/2025 CBC WITH DIFFE RENTI AL/PL ATELE T platelets 154 x10e3 /uL 150-45 0 normal Not Available [facility] ([facility]) [address] [facility], [place], [address], 01/15/2025 06:08:11 01/15/20 25 01/14/2025 CBC WITH DIFFE RENTI AL/PL ATELE T neutrophils 66 % not estab. normal Not Available [facility] ([facility]) [address] [facility], [place], [address], 01/15/2025 06:08:11 01/15/20 25 01/14/2025 CBC WITH DIFFE RENTI AL/PL ATELE T lymphs 23 % not estab. normal Not Available [facility] ([facility]) [address] [place], [address], 01/15/2025 06:08:11 01/15/20 25 01/14/2025 CBC WITH DIFFE RENTI AL/PL ATELE T monocytes 7 % not estab. normal Not Available [facility] ([facility]) [address] [place], [address], 01/15/2025 06:08:11 01/15/2001/14/2025 CBC WITH DIFFE RENTI AL/PL ATELE T eos 3 % not estab. normal Not Available [facility] ([facility]) [address] [facility], [place], [address], 01/15/2025 06:08:11 01/15/20 25 01/14/2025 CBC WITH DIFFE RENTI AL/PL ATELE T basos 1 % not estab. normal Not Available [facility] ([facility]) [address] [facility], [place], [address], 01/15/2025 06:08:11 01/15/2001/14/2025 CBC WITH DIFFE RENTI AL/PL ATELE T immature cells BARREL CLEANER Not Available [facility] ([facility]) [address] [place], [address], 01/15/2025 06:08:11 01/15/2001/14/2025 CBC WITH DIFFE RENTI AL/PL ATELE T neutrophils (absolute) 4.6 x10e3 /uL 1.4-7. 0 normal Not Available [facility] ([facility]) [address] [place], [address], 01/15/2025 06:08:11 01/15/20 25 01/14/2025 CBC WITH DIFFE RENTI AL/PL ATELE T lymphs (absolute) 1.6 x10e3 /uL 0.7-3. 1 normal Not Available [facility] ([facility]) [address] [place], [address], 01/15/2025 06:08:11 01/15/2001/14/2025 CBC WITH DIFFE RENTI AL/PL ATELE T monocytes(ab solute) 0.5 x10e3 /uL 0.1-0. 9 normal Not Available [facility] ([facility]) [address] [place], [address], 01/15/2025 06:08:11 01/15/20 25 01/14/2025 CBC WITH DIFFE RENTI AL/PL ATELE T eos (absolute) 0.2 x10e3 /uL 0.0-0. 4 normal Not Available [facility] ([facility]) [address] [facility], [place], [address], 01/15/2025 06:08:11 01/15/20 25 01/14/2025 CBC WITH DIFFE RENTI AL/PL ATELE T baso (absolute) 0.0 x10e3 /uL 0.0-0. 2 normal Not Available [facility] ([facility]) [address] [facility], [place], [address], 01/15/2025 06:08:11 01/15/20 25 01/14/2025 CBC WITH DIFFE RENTI AL/PL ATELE T immature granulocytes 0 % not estab. Not Available [facility] ([facility]) [address] [facility], [place], [address], 01/15/2025 06:08:11 01/15/20 25 01/14/2025 CBC WITH DIFFE RENTI AL/PL ATELE T immature grans (abs) 0.0 x10e3 /uL 0.0-0. 1 Not Available [facility] ([facility]) [address] [facility], [place], [address], 01/15/2025 06:08:11 01/15/20 25 01/14/2025 CBC WITH DIFFE RENTI AL/PL ATELE T NRBC BARREL [employer]ER Not Available [facility] ([facility]) [address] [facility], [place], [address], 01/15/2025 06:08:11 01/15/20 25 01/14/2025 CBC WITH DIFFE RENTI AL/PL ATELE T hematology comments: BARREL CLEANER Not Available [facility] ([facility]) [address] [facility], [place], [address], 01/15/2025 06:08:11 10/09/20 25 01/15/2025 BASIC METAB OLIC PANEL (8) glucose 126 mg/dL 70-99 above high normal Not Available [facility] ([facility]) [address] [place], [address], 01/15/2025 06:08:12 01/15/20 25 01/15/2025 BASIC METAB OLIC PANEL (8) BUN 12 mg/dL 8-27 normal Not Available [facility] ([facility]) [address] [place], [address], 01/15/2025 06:08:12 01/15/2001/15/2025 BASIC METAB OLIC PANEL (8) creatinine 0.97 mg/dL 0.76-1 .27 normal Not Available [facility] ([facility]) [address] [place], [address], 01/15/2025 06:08:12 01/15/20 25 01/15/2025 BASIC METAB OLIC PANEL (8) eGFR 85 mL/mi n/1.7 3 >59 normal Not Available [facility] ([facility]) [address] [place], [address], 01/15/2025 06:08:12 01/15/20 25 01/15/2025 BASIC METAB OLIC PANEL (8) BUN/creatini ne ratio 12 10-24 normal Not Available [facility] ([facility]) [address] [place], [address], 01/15/2025 06:08:12 01/15/20 25 01/15/2025 BASIC METAB OLIC PANEL (8) sodium 142 mmol/ L 134-14 4 normal Not Available [facility] ([facility]) [address] [place], [address], 01/15/2025 06:08:12 01/15/20 25 01/15/2025 BASIC METAB OLIC PANEL (8) potassium 4.2 mmol/ L 3.5-5. 2 normal Not Available [facility] ([facility]) [address] [place] [place], [address], 01/15/2025 06:08:12 01/15/2001/15/2025 BASIC METAB OLIC PANEL (8) chloride 103 mmol/ L 96-106 normal Not Available [facility] ([facility]) [address] [place] [place], [address], 01/15/2025 06:08:12 01/15/20 25 01/15/2025 BASIC METAB OLIC PANEL (8) carbon dioxide, total 23 mmol/ L 20-29 normal Not Available [facility] ([facility]) [address] [place] [place], [address], 01/15/2025 06:08:12 01/15/2001/15/2025 BASIC METAB OLIC PANEL (8) calcium 9.0 mg/dL 8.6-10 .2 normal Not Available [facility] ([facility]) [address] [place] [place], [address], 01/15/2025 06:08:12 01/15/2001/15/2025 LIPID PANEL cholesterol, total 155 mg/dL 100-19 9 normal Not Available [facility] ([facility]) [address] [place] [place], [address], 01/15/2025 06:08:12 01/15/20 25 01/15/2025 LIPID PANEL triglyceride s 136 mg/dL 0-149 normal Not Available [facility] ([facility]) [address] [place] [place], [address], 01/15/2025 06:08:12 01/15/20 25 01/15/2025 LIPID PANEL HDL cholesterol 36 mg/dL >39 below low normal Not Available [facility] ([facility]) [address] [place] [place], [address], 01/15/2025 06:08:12 01/15/20 25 01/15/2025 LIPID PANEL VLDL cholesterol jones 24 mg/dL 5-40 Not Available [facility] ([facility]) [address] [place], [address], 01/15/2025 06:08:12 01/15/20 25 01/15/2025 LIPID PANEL LDL chol calc ([facility]) 95 mg/dL 0-99 Not Available [facility] ([facility]) [address] [place], [address], 01/15/2025 06:08:12 01/15/20 25 01/15/2025 LIPID PANEL LDL calc comment: BARREL CLEANER Not Available [facility] ([facility]) [address] [facility], [place], [address], 01/15/2025 06:08:12 01/15/20 25 01/15/2025 TSH RFX ON ABNOR MAL TO FREE T4 TSH 4.160 uIU/m L 0.450- 4.500 normal Not Available [facility] ([facility]) [address] [place], [address], 01/15/2025 06:08:13 01/15/20 25 01/14/2025 HEPAT IC FUNCT ION PANEL (7) protein, total 6.5 g/dL 6.0-8. 5 normal Not Available [facility] ([facility]) [address] [place], [address], 01/15/2025 16:06:51 01/15/20 25 01/14/2025 HEPAT IC FUNCT ION PANEL (7) albumin 4.2 g/dL 3.9-4. 9 normal Not Available [facility] ([facility]) [address] [place], [address], 01/15/2025 16:06:51 01/15/20 25 01/14/2025 HEPAT IC FUNCT ION PANEL (7) bilirubin, total 0.7 mg/dL 0.0-1. 2 normal Not Available [facility] ([facility]) [address] [place] [place], [address], 01/15/2025 16:06:51 01/15/20 25 01/14/2025 HEPAT IC FUNCT ION PANEL (7) alkaline phosphatase 71 IU/L 47-123 normal Not Available [facility] ([facility]) [address] [place] [place], [address], 01/15/2025 16:06:51 01/15/20 25 01/14/2025 HEPAT IC FUNCT ION PANEL (7) AST (SGOT) 22 IU/L 0-40 normal Not Available [facility] ([facility]) [address] [place] [place], [address], 01/15/2025 16:06:51 01/15/20 25 01/14/2025 HEPAT IC FUNCT ION PANEL (7) ALT (SGPT) 23 IU/L 0-44 normal Not Available [facility] ([facility]) [address] [place] [place], [address], 01/15/2025 16:06:51 01/15/20 25 01/15/2025 HEPAT IC FUNCT ION PANEL (7) bilirubin, direct 0.18 mg/dL 0.00-0 .40 normal Not Available [facility] ([facility]) [address] [place] [place], [address], 01/15/2025 16:06:51 01/15/20 25 01/15/2025 ALBUM IN/CR EATIN INE RATIO ,URIN E creatinine, urine 187.8 mg/dL not estab. normal Not Available [facility] ([facility]) [address] [place] [place], [address], 01/15/2025 16:06:52 01/15/20 25 01/15/2025 ALBUM IN/CR EATIN INE RATIO ,URIN E albumin, urine 26.7 ug/mL not estab. Not Available [facility] ([facility]) [address] [facility], [place], [address], 01/15/2025 16:06:52 01/15/2001/15/2025 ALBUM IN/CR EATIN INE RATIO ,URIN E alb/creat ratio 14 mg/g_ creat 0-29 Melissa l: 0 - 29 Moder ately incre ased: 30 - 300 Sever venu incre ased: >300 Not Available [facility] ([facility]) [address] [facility], [place], [address], 01/15/2025 16:06:52 01/15/2001/14/2025 HEMOG LOBIN A1C hemoglobin A1C 6.4 % 4.8-5. 6 above high normal Predi abete s: 5.7 - 6.4 Diabe margarito: >6.4 Glyce isaiah contr ol for adult s with diabe margarito: <7.0 Not Available [facility] ([facility]) [address] [facility], [place], [address], 01/15/2025 16:06:52 01/20/2001/18/2025 MRI, lumba r spine , w/o contr ast No observ ation record ed. [facility] [address], [address], 01/24/2025 14:26:02 Result Notes None recorded. Problems Name Problem SNOMED Code Status Onset Date Resolution Date Notes Provider Name and Address Organization Details Recorded Time Collagen ous colitis 73426975 Active 2017 Clary solorzano [facility] 8 14:59:41 Pain in spine 37409740 Completed 201701/31/2018 Yeny solorzano [facility] 8 11:40:37 Peripher al neuritis 087432630 Active 2017 biljoaquin [facility] LIZZ LOPEZ MD [address] [address], [place], [address] [place], [place] [address] 3 14:09:30 Chronic neck pain 75765678627 07 Active 2017 Yenysatish Melchoraristides-Sunshine juarez null, [facility] 8 11:40:33 Hypercho lesterol emia 51284924 Active 2017 Yenysatish Melchoraristides-Sunshine sidhuorenani null, [facility] 8 11:40:51 Benign prostati c hyperpla lulu 312618376 Active 2017 Yeny Melchoraristides-Sunshine duggannani null, [facility] 8 11:41:01 Well controll ed type 2 diabetes mellitus 180626731 Active 2017 Yeny Mckay-Sunshine duggannani null, [facility] 8 11:42:50 Closed fracture of left foot [id number] 260480 Completed 201812/06/2022 LIZZ LOPEZ MD [address], [facility] [place], [address], [facility] 3 06:46:22 Deep venous thrombos is 495838624 Active 2020 Debby Arias MA null, [facility] 1 10:58:34 Anxiety 67498514 Active 2020 Debby Arias MA null, [facility] 1 10:38:51 [facility] hyperten mariia 90472070 Active 2021 Yeny Bashir-Sunshine duggannani null, [facility] 2 15:23:09 Steatoti c liver disease 939300237 Active 2021 Yeny Bashir-Sunshine juarez null, [facility] 2 12:40:46 Obstruct simran sleep apnea syndrome 53767482 Active 2021 LIZZ LOPEZ MD [address], [facility] [place], [address], [facility] 2 08:42:44 Lumbar radiculo ronald 619595573 Active 2024 LIZZ LOPEZ MD [address], [place], [address], [facility] 5 14:20:11 Problem Notes None recorded. Procedures Surgical History Date Name Laterality Status Provider Name and Address Organization Details Recorded Time 12/07/19 23 Advanced Care Planning completed LIZZ LOPEZ MD [address] [facility] [address], [place], [address], [facility] 12/06/2022 06:44:12 12/11/19 20 Eye Surgery completed Helen ferreira MA [facility] 12/06/2022 13:58:51 12/06/19 19 Mammogram both breasts completed Ebony Kendrick [facility] 12/24/2018 10:54:17 04/08/19 18 Colonoscopy completed Helen ferreira MA [facility] 12/06/2022 13:57:47 03/14/20 16 Flexible Sigmoidoscopy completed Dania Whittington [facility] 11/12/2018 15:16:19 Appendectomy completed Clary Mauro [facility] 09/30/2017 14:58:22 Imaging Results None recorded. Procedure Notes None recorded. Medical Equipment None Reported. Allergies No known drug allergies Medications Name Sig Start Date Stop Date Status Note LastModified by Organization Details LastModified Time amoxicill in 500 mg capsule 12/30 completed Not Available Not Available Not Available terazosin 5 mg capsule TAKE 1 CAPSULE BY MOUTH EVERY DAY DIRECTED active Not Available Not Available No t Available clotrimaz ole 10 mg philipp 04/25 completed Not Available Not Available Not Available metformin 500 mg tablet Take 1 tablet every day by oral route. 10/11 completed Not Available Not Available Not Available prednison e 10 mg tablet 04/25 completed Not Available Not Available Not Available gabapenti n 600 mg tablet TAKE 2 TABLET BY MOUTH EVERY 8 HOURS EVERY DAY NEEDED.. active Not Available Not Available No t Available albuterol sulfate 2.5 mg/3 mL (0.083 %) solution for nebulizat ion Inhale 3 mL 3 times a day by nebuliza tion route. 11/12 completed Not Available Not Available Not Available azithromy bridget 250 mg tablet TAKE 2 TABLETS (500 MG) BY ORAL ROUTE ONCE DAILY FOR 1 DAY THEN 1 TABLET (250 MG) BY ORAL ROUTE ONCE DAILY FOR 4 DAYS 11/12 completed Not Available Not Available Not Available pravastat in 40 mg tablet TAKE 1 AND 1/2 TABLETS BY MOUTH DAILY 08/16 completed Not Available Not Available Not Available famotidin e 40 mg tablet TAKE 1 TABLET BY MOUTH TWICE DAILY 08/16 completed Not Available Not Available Not Available prednison e 20 mg tablet Take 1 tablet every day by oral route. 05/18 completed Not Available Not Available Not Available clonazepa m 0.5 mg tablet TAKE 1 TABLET BY MOUTH EVERY DAY NEEDED 2024 active Not Available Not Available Not Avai lable prednison e 5 mg tablet Take 1 tablet every day by oral route for 30 days. 08/16 completed Not Available Not Available Not Available clonazepa m 1 mg tablet TAKE 1/2 TABLET BY MOUTH EVERY DAY NEEDED 06/09 completed Not Available Not Available Not Available clindamyc in HCl 150 mg capsule 05/18 completed Not Available Not Available Not Available cyanocoba jesenia (vit B-12) 1,000 mcg tablet Take 1 tablet every day by oral route. active Not Available Not Available No t Available diphenoxy late-atro pine 2.5 mg-0.025 mg tablet 01/31 completed Not Available Not Available Not Available azathiopr ine 50 mg tablet Take 1 tablet every day by oral route for 30 days. 04/25 completed Not Available Not Available Not Available tramadol 50 mg tablet Take 1 tablet by oral route for 7 days. 06/01 completed Not Available Not Available Not Available butalbita l-acetami nophen-ca ffeine 50 mg-325 mg-40 mg tablet active Not Available Not Available Not Available amoxicill in 500 mg tablet TAKE 1 TABLET BY MOUTH EVERY 8 HOURS UNTIL GONE 12/06 completed Not Available Not Available Not Available amoxicill in 875 mg tablet TAKE 1 TABLET BY MOUTH TWICE DAILY FOR 7 DAYS 05/18 completed Not Available Not Available Not Available pravastat in 80 mg tablet TAKE 1 TABLET BY MOUTH EVERY DAY DIRECTED 12/12 completed not controll ing choleste rol well enough Not Available Not Available Not Available Imodium A-D 2 mg tablet Take 1 tablet every day by oral route. 03/30 completed for colitis Not Available Not Available Not Available trazodone 100 mg tablet Take 1 tablet every day by oral route for 90 days. 12/30 completed Not Available Not Available Not Available doxycycli ne monohydra te 100 mg capsule TAKE 1 CAPSULE BY MOUTH TWICE DAILY FOR 10 DAYS 08/16 completed Not Available Not Available Not Available amoxicill in 250 mg capsule TAKE 1 CAPSULE BY MOUTH EVERY 8 HOURS UNTIL GONE 02/01 completed Not Available Not Available Not Available pravastat in 20 mg tablet TAKE 1 TABLET BY MOUTH EVERY DAY 11/12 completed Not Available Not Available Not Available metoprolo l succinate ER 25 mg tablet,ex tended release 24 hr TAKE 1 TABLET BY MOUTH EVERY DAY active Not Available Not Available No t Available budesonid e DR - ER 3 mg capsule,d elayed,ex tended release TAKE 1 CAPSULE BY MOUTH THREE TIMES DAILY 12/06 completed Not Available Not Available Not Available ondansetr on 4 mg disintegr ating tablet 04/25 completed Not Available Not Available Not Available fluticaso ne propionat e 50 mcg/actua tion nasal spray,steve pension SHAKE LIQUID AND USE 1 SPRAY IN EACH NOSTRIL EVERY DAY active Not Available Not Available No t Available metformin ER 500 mg tablet,ex tended release 24 hr TAKE 2 TABLETS BY MOUTH EVERY DAY DIRECTED active Not Available Not Available No t Available dicyclomi ne 10 mg capsule Take 1 capsule every day by oral route. 05/18 completed Not Available Not Available Not Available dorzolami de 2 % eye drops 12/17 completed Not Available Not Available Not Available tobramyci n 0.3 %-dexamet hasone 0.1 % eye drops,steve pension 01/12 completed Not Available Not Available Not Available dutasteri de 0.5 mg capsule TAKE 1 CAPSULE BY MOUTH EVERY DAY 2024 active Not Available Not Available Not Avai lable Vitamin D3 25 mcg (1,000 unit) capsule Take 1 capsule every day by oral route. active Not Available Not Available No t Available cyclospor ine 0.05 % eye drops in a dropperet te INSTILL 1 DROP INTO BOTH EYES TWICE A DAY DIRECTED 01/12 completed RESTASIS Not Available Not Available Not Available cholestyr amine (with sugar) 4 gram oral powder active Not Available Not Available Not Available rosuvasta tin 20 mg tablet TAKE 1 TABLET BY MOUTH EVERY DAY 2024 active Not Available Not Available Not Avai lable Prilosec OTC 20 mg tablet,de layed release Take 1 tablet every day by oral route as needed. active omeprazo le Not Available Not Available Not Available Multivita min 50 Plus tablet Take 1 tablet every day by oral route. active Not Available Not Available No t Available duloxetin e 60 mg capsule,d elayed release active Not Available Not Available Not Available chlorhexi dine gluconate 0.12 % mouthwash RINSE WITH 15CC FOR 30 SECONDS TWICE DAILY. TO BE STARTED DAY AFTER SURGERY 05/18 completed Not Available Not Available Not Available multivita min 1 tablet po daily 08/16 completed Not Available Not Available Not Available ProAir HFA 90 mcg/actua tion aerosol inhaler Inhale 2 puffs 4 times a day by inhalati on route as needed. 03/30 completed Not Available Not Available Not Available tramadol ER 100 mg tablet,ex tended release 24 hr Take 1 tablet every day by oral route. 08/27 completed Not Available Not Available Not Available tramadol ER 200 mg tablet,ex tended release 24 hr Take 1 tablet every day by oral route. 05/30 completed Not Available Not Available Not Available Engerix-B (PF) 20 mcg/mL intramusc ular syringe 04/25 completed Not Available Not Available Not Available budesonid e-formote rol HFA 160 mcg-4.5 mcg/actua tion aerosol inhaler INHALE 2 PUFFS BY MOUTH TWICE DAILY 02/01 completed Not Available Not Available Not Available desvenlaf axine succinate ER 100 mg tablet,ex tended release 24 hr TAKE 1 TABLET BY MOUTH EVERY DAY 2024 active Not Available Not Available Not Avai lable GaviLyte- G 236 gram-22.7 4 gram-6.74 gram-5.86 gram oral solution active Not Available Not Available Not Available Creon 24,000-76 ,000-120, 000 unit capsule,d elayed release active Not Available Not Available Not Available Eliquis 5 mg tablet TAKE 1 TABLET TWICE A DAY BY ORAL ROUTE FOR 30 DAYS. 12/30 completed Not Available Not Available Not Available Eliquis 2.5 mg tablet TAKE 1 TABLET BY MOUTH TWICE DAILY active Not Available Not Available No t Available marijuana (cannabis ) smoke daily 04/25 completed Not Available Not Available Not Available desvenlaf axine succinate ER 25 mg tablet,ex tended release 24 hr TAKE 1 TABLET BY MOUTH EVERY DAY active Not Available Not Available No t Available Shingrix (PF) 50 mcg/0.5 mL intramusc ular suspensio n, kit 11/12 completed Not Available Not Available Not Available Eliquis DVT-PE Treatment 30-Day Starter 5 mg (74 tablets) in dose pack Take 2 tablets twice a day by oral route for 30 days. 12/30 completed Not Available Not Available Not Available Humira(CF ) Pen 40 mg/0.4 mL subcutane ous kit Inject 1 mL every 2 weeks by sub-q route. 08/16 completed Not Available Not Available Not Available Humira(CF ) Pen Crohn's-U lc Colitis-H id Sup Strt 80 mg/0.8 mL subcut kt 05/18 completed Not Available Not Available Not Available Cequa 0.09 % eye drops in a dropperet te INSTILL 1 DROP INTO AFFECTED EYE(S) BY OPHTHALM IC ROUTE 2 TIMES PER DAY APPROXIM ATELY 12 HOURS APART active Not Available Not Available No t Available Afluria Qd 2018- (36 mos up)(PF)60 mcg (15 mcg x4)/0.5 mL IM syringe 03/30 completed Not Available Not Available Not Available Fluzone Quad (PF) 60 mcg (15 mcg x 4)/0.5 mL IM syringe PHARMACY ADMINIST ERED 12/17 completed Not Available Not Available Not Available Vitals Date Recorded Systolic And Diastolic Provider Name and Address Organization Details Last Updated DateTime 06/08/2024 134/82 mm[Hg] LIZZ LOPEZ MD [address], [place], [address], [facility] 06/08/2024 10:16:37 Date Recorded Body height Body mass index (BMI) Body weight Heart rate Oxygen saturation Body temperature Systolic And Diastolic Provider Name and Address Organization Details Last Updated DateTime 5 171.45 cm 28.7 kg/m2 39003.1 8 g 101 /min 97 % 98.3 [degF] 145/87 mm[Hg] Emily Loyola MA [facility] 5 09:59:58 Date Recorded Body height Body mass index (BMI) Body weight Oxygen saturation Heart rate Body temperature Systolic And Diastolic Provider Name and Address Organization Details Last Updated DateTime 4 171.45 cm 30.1 kg/m2 38877.2 1 g 98 % 88 /min 97.5 [degF] 117/73 mm[Hg] Debby Arias MA [facility] 4 10:51:07 Date Recorded Body height Body mass index (BMI) Body weight Oxygen saturation Heart rate Body temperature Systolic And Diastolic Provider Name and Address Organization Details Last Updated DateTime 5 171.45 cm 28.4 kg/m2 15154 g 97 % 99 /min 98.4 [degF] 127/69 mm[Hg] Debby Arias MA [facility] 5 10:05:08 Date Recorded Body height Body mass index (BMI) Body weight Oxygen saturation Heart rate Body temperature Systolic And Diastolic Provider Name and Address Organization Details Last Updated DateTime 4 171.45 cm 29.2 kg/m2 34700.0 6 g 98 % 92 /min 97.8 [degF] 127/77 mm[Hg] Debby Arias MA [facility] 4 10:14:24 Date Recorded Body height Body mass index (BMI) Body weight Oxygen saturation Heart rate Body temperature Systolic And Diastolic Provider Name and Address Organization Details Last Updated DateTime 5 171.45 cm 29.5 kg/m2 93385.2 4 g 98 % 89 /min 98.5 [degF] 123/73 mm[Hg] Debby Arias MA [facility] 5 10:57:17 Social History Question Answer Notes LastModified by Organizat ion Details LastModified Time Tobacco Smoking Status Former Smoker quit age 42 Clary Mauro jeanine [facility] 09/30/2017 14:57:24 Do You Have An Advance Directive? Yes Information not available 10/26/2021 Is Blood Transfusion Acceptable In An Emergency? Yes Information not available 09/30/2017 What Is Your Level Of Caffeine Consumption? Moderate 2 Cups Of Coffee Daily Information not available 12/06/2022 How Much Tobacco Do You Chew? None Information not available 08/27/2018 What Type Of Diet Are You Following? REGULAR Information not available 09/30/2017 Which Illicit Or Recreational Drugs Have You Used? Medical Marijuana Information not available 12/06/2022 When Did You Quit Smoking? 16+yearssinc elastcigaret te [email or web address] Information not available 06/15/2020 Do You Take Precautions To Prevent Distracted Driving? Yes Information not available 09/30/2017 How Often Do You Need To Have Someone Help You When You Read Instructions, Pamphlets, Or Other Written Material From Your Doctor Or Pharmacy? Sometimes Information not available 09/30/2017 Have You Served In The ? No Information not available 09/30/2017 Have You Or Anyone In Your Household Had Any Of The Following Symptoms In The Last 14 Days: Sore Throat, Cough, Chills, Body Aches For Unknown Reasons, Shortness Of Breath For Unknown Reasons, Loss Of Smell, Loss Of Taste, Fever At Or Greater Than 100 Degrees Fahrenheit? No [email or web address] Information not available 12/18/2019 Are You Or Anyone In Your Household A Health Care Provider Or Emergency Responder? No [email or web address] Information not available 12/18/2019 To The Best Of Your Knowledge Have You Been In Close Proximity To Any Individual Who Tested Positive For COVID-19? No [email or web address] Information not available 12/18/2019 *AWV ONLY* Are You Presently Prescribed Opioid Medication By PCP Or Specialist? If YES -Provider Assess The Benefit For Other, Non-opioid Pain Therapies Instead, Even If The Patient Does Not Have OUD But Is Possibly At Risk. No Information not available 01/12/2021 Have You Recently Traveled To A [place] [address] High Risk Area Or Gathering In The Last 10 Days? No [email or web address] Information not available 06/01/2020 What Was The Date Of Your Most Recent Tobacco Screening? 01/12/2025 [email or web address] Information not available 01/12/2025 How Many Children Do You Have? 2 Information not available 09/30/2017 What Is Your Current Pack Years? [email or web address] Information not available 10/26/2021 Do You Use Your Seat Belt Or Car Seat Routinely? Yes Information not available 01/12/2021 Are You Sexually Active? No (Ladonna) Information not available 12/06/2022 Do You Have Smoke And Carbon Monoxide Detectors In Your Home? Yes [email or web address] Information not available 01/12/2021 At What Age Did You Start Smoking Tobacco? 16 Information not available 09/30/2017 Are You Passively Exposed To Smoke? No [email or web address] Information not available 12/18/2019 How Much Tobacco Do You Smoke? No [email or web address] Information not available 01/12/2021 Do You Use Sunscreen Routinely? Yes Sometimes Information not available 09/30/2017 How Many Years Have You Smoked Tobacco? 30 [email or web address] Information not available 04/09/2019 Sex: Unknown Functional Status Question Answer Note LastModified by Organizat ion Details LastModified Time Do you use any illicit or recreational drugs? Yes Information not available 12/06/2022 Do you or have you ever used any other forms of tobacco or nicotine? No Information not available 12/06/2022 What is your level of alcohol consumption? None Information not available 09/30/2017 Do you or have you ever used smokeless tobacco? Never used smokeless tobacco [email or web address] Information not available 11/12/2018 Are you currently employed? No retired Information not available 09/30/2017 Are you able to walk independently without assistance or assistive devices? YESWOREST Information not available 10/26/2021 Are you able to care for yourself independently? 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 Never used electronic cigarettes Information not available 10/26/2021 What is your exercise level? Occasional using cellar stairs, mowing lawn Information not available 12/06/2022 Mental Status None recorded. Family History Relationship Description Onset Age of this Age Resolved Age Notes LastModified by Organization Details LastModified Time Father Diabetes mellitus [email or web address] Not available 2017 14:54:14 Father Cerebrovascu lar accident rkanu Not available 14:54:26 Mother Arthritis rkanu Not available 09/30/2017 14:54:55 Notes:No fh of breast or col on cancer Medical History Condition Response Other N Gout N Kidney Stones N Blood Diseases N Hyperthyroidism N Breast Cancer N Hypothyroidism N Lung Disease N COPD N Depression Y Defects or Inherited Disease N Anesthesia Complications N Headaches/Migraines N Anxiety Disorder Y Varicose Veins N Obesity N Vision or Eye Problems Y Arthritis Y Head Injury/Concussion N Polyps N Infertility N Congenital Anomalies N Acid Reflux (GERD) Y Cancer N Stroke N ADHD N Endometriosis N High Cholesterol Y Liver Disease N Fibromyalgia N Kidney Disease N Heart Problems N Ear or Hearing Problems N Hospitalizations N Thyroid Problems N GI Problems Y Acne N Eating Disorder N Skin Problems Y Anemia N Constipation N Bladder Problems N Mental Illness N Ovarian Cancer N Diabetes Y Blood Transfusions N Seizures/Epilepsy N Tuberculosis N AIDS/HIV N Congestive Heart Failure (CHF) N Eczema N Diverticulitis N Abuse/Domestic Violence N Asthma N Allergies N Reflux/GERD Y Hepatitis N Pulmonary Embolism N Hypertension N Chicken Pox Y Autism Spectrum Disorder (ASD) N Osteoporosis N Immunizations Vaccine Type Date Status Note Provider Nam e and Address Organization Details Recorded Time pneumococcal polysaccharide PPV23 0 completed Dania solorzano [facility] 08/19/2017 10:32:22 Tdap 0 completed Dania solorzano [facility] 08/19/2017 10:32:33 Tdap 8 completed [place] Simon [facility] 01/09/2018 14:29:12 Hep B, adult 8 completed Debby Arias MA null, [facility] 05/18/2021 11:22:36 Hep B, adult 8 completed Debby Arias MA null, [facility] 05/18/2021 11:22:36 Hep B, adult 8 completed Debby Arias MA null, [facility] 05/18/2021 11:22:36 zoster live 9 completed Helen Silverio MA null, [facility] 08/27/2018 11:28:46 zoster live 9 completed Princess Olivera LPN null, [facility] 10/14/2018 16:28:19 COVID-19, mRNA, LNP-S, PF, 30 mcg/0.3 mL dose 1 completed [place] Simon, [facility] 05/18/2021 11:22:36 COVID-19, mRNA, LNP-S, PF, 30 mcg/0.3 mL dose 1 completed [place] Simon, [facility] 05/18/2021 11:22:36 COVID-19, mRNA, LNP-S, PF, 30 mcg/0.3 mL dose 1 completed [place] Simon, [facility] 05/18/2021 11:22:36 Influenza, adjuvanted, quadrivalent, PF 1 completed [place] Simon, [facility] 05/18/2021 11:22:36 Hep A-Hep B 1 completed [place] Simon, [facility] 05/18/2021 11:22:36 Influenza, split virus, quadrivalent, PF 8 completed [place] Simon, [facility] 05/18/2021 11:22:36 Hep A-Hep B 1 completed [place] Simon, [facility] 05/18/2021 11:22:36 Influenza, split virus, quadrivalent, PF 9 completed [place] Simon, [facility] 05/18/2021 11:22:36 Influenza, split virus, quadrivalent, PF 0 completed [place] Simon, [facility] 05/18/2021 11:22:36 Hep A, adult 2 completed Not Available [facility] 12/06/2022 13:37:27 Hep B, adult 2 completed Not Available [facility] 12/06/2022 13:37:27 COVID-19, mRNA, LNP-S, PF, 30 mcg/0.3 mL dose, daphney-sucrose 2 completed [facility] 08/16/2021 15:14:54 Hep A-Hep B 2 [facility] 08/16/2021 15:14:54 Influenza, high-dose, quadrivalent, PF 2 completed [place] Mcgrath, [facility] 02/01/2022 14:57:54 Pneumococcal conjugate PCV20, polysaccharide [id number] conjugate, adjuvant, PF 3 completed [place] Simon, [facility] 06/10/2023 10:51:37 Influenza, high-dose, quadrivalent, PF 3 [facility] 06/10/[facility] 10:51:37 RSV, recombinant, protein subunit RSVpreF, adjuvant reconstituted, 0.5 mL, PF 3 completed [place] Simon, [facility] 06/10/2023 10:51:38 COVID-19, mRNA, LNP-S, PF, daphney-sucrose, 30 mcg/0.3 mL 3 completed [place] Simon [facility] 06/10/2023 10:51:38 COVID-19, mRNA, LNP-S, PF, daphney-sucrose, 30 mcg/0.3 mL 4 completed Not Available [facility] 01/12/2025 10:48:15 Influenza, adjuvanted, trivalent, PF 4 completed Not Available [facility] 01/12/2025 10:48:15 SARS-COV-2 (COVID-19) vaccine, UNSPECIFIED 5 completed Dania Pk solorzano [facility] 12/22/2024 16:36:19 Influenza, high-dose, trivalent, PF 5 completed Daniaphilly solorzano, [facility] 12/22/2024 16:36:46 Past Encounters Encounter ID Performer Location Encounter Start Date Encounter Closed Date Diagnosis/Indication Diagnosis SNOMED-CT Code Diagnosis ICD10 Code Diagnosis IMO Codes Diagnosis Note [id number] Yeny shultz MD Main Office [address] [place] [address] 09/30/2017 14:18:46 09/30/2017 15:38:06 Adult health examination 513129712 Z00.00 see health issues below, pt expresses frustratio n about not having much social life, living in chronic neck pain for years. Benign pro static hyperplasia 924972305 N40.0 exam feels nl, is on 2 meds, will refer to urology for pt to get eval and see if meds are needed Collagenous colitis 1931 1003 K52.831 pt with 3 bouts of collegenou s colitis. PT has lost over 70lbs over the past year and a half. Pt is steady at his weight. Pt is treated by Dr Arredondo, last tx was with prednisone , just finished it 3 days ago. Type 2 cub[place] betes mellitus without complication 052858846 E11.9 check labs if low a1c can stop metformin, has lost so much weight Degenerati on of cervical intervertebral disc 68178554 M50.30 chronic neck pain . followed by pain management Hypercholesterolemia 136 21913 E78.00 Fatigue 51695268 R53.83 [id number] Yeny shultz MD Main Office [address] [facility] [address] [place] [address] 01/31/2018 11:12:51 01/31/2018 11:58:35 Collagenous colitis 74131866 K52.831 finally better control of symptoms, weight up a bit Chronic neck pain 989821 4722 107 M54.2 on meds, stable Hypercholesterolemia 136 57736 E78.00 Benign pro static hyperplasia 368037967 N40.0 pt saw urology, he has stoped one of the meds for BPH, will see urology for a flow study. Well contr olled type 2 diabetes mellitus 756453435 E11.9 diet controlled , lost so much weight no need for meds. [id number] Yeny shultz MD Main Office [address] [address] 04/25/2018 10:49:47 04/25/2018 12:21:01 Influenza-like symptoms 900517213 R68.89 flu test negative, ok for otc antipyreti c if needed Wheezing 02155415 R06.2 albuterol updraft given with improvemen t of BS bilaterall y, still with some rhonchi and end exp wheeze. Will try proair at home for wheezing Pneumonia 317166674 J18. 9 clinically with pneumonia, will treat with antibiotic . Pt to call if not improving. Try robitussin DM to quiet cough Unexplaine d weight loss 647326414 R63.4 will need to get accurate weight once the boot is off his foot. In the interim, small frequent meals, keep followup with Dr Arredondo. Cannot start humira until cough better. Labs today [id number] Yeny shultz MD Main Office [address] [facility] [address] [place] [address] 05/30/2018 11:08:10 05/30/2018 11:56:55 Well controlled type 2 diabetes mellitus 510921566 E11.9 diet controlled , lost so much weight no need for meds. Benign pro static hyperplasia 312024323 N40.0 med refilled, pt sees but they are not filling meds but are awre of what he is on Collagenous colitis 1931 1003 K52.831 finally better control of symptoms, weight up and symptoms down will see GI next week looks much better Hypercholesterolemia 136 44265 E78.00 check fasting in a month or so Hypocalcemia 7353925 E83 .51 calcium low at 8.3 and albumin low, will repeat in a month or so, lab already ordered, is getting much better nutrition [id number] Gordy Woodard MD Main Office [address] [facility] [address] [facility] [place] [address] 08/27/2018 11:21:14 08/27/2018 12:27:19 Cough 81857283 R05 likely recurrence of pna - see below Nausea and vomiting 1693 2000 R11.2 just once -- rec. svitlana tea or flat svitlana jovita prn Fever 919091016 R50.9 cont to push fluids - see below Collagenous colitis 1931 1003 K52.831 just acted up today but no bloody diarrhea - doubt cause of his sxs x 6 days Pneumonia 109382465 J18. 9 rec mucinex and proair (has at home) as dir rec probiotics while on abx check labs and cxr - see above [id number] Yeny shultz MD Main Office [address] [facility] [address] [place] [address] 11/12/2018 12:47:23 11/12/2018 13:34:17 Adult health examination 589529655 Z00.00 utd on screening, limited by neck pain Chronic neck pain 696462 6708 107 M54.2 on meds, stable Well contr olled type 2 diabetes mellitus 934814548 E11.9 diet controlled , lost so much weight no need for meds. Collagenous colitis 1931 1003 K52.831 finally better control of symptoms, weight up and symptoms down will see GI next week looks much better Mass of left breast 1224 383640 3529560 N63.21 new to pt and examiner, see hx, will refer to breast center for evaluation Contusion of multiple sites 431986138 T07.XXXA check labs Intolerant of cold 39796 000 R68.89 check thyroid [id number] Yeny shultz MD Main Office [address] [facility] [address] [facility] [place] [place] [address] 03/30/2019 15:00:12 03/30/2019 15:47:09 Screening for malignant neoplasm of lung 918476357 Z87.891 Eligible patients must have >=30 pack years. pt is eligible, referral placed Cough 13793823 R05 cough since 01/24, had a virus, is an ex smoker, he will get CXR [id number] Yeny shultz MD Main Office [address] [place] [address] [place] [address] 05/29/2019 12:35:39 05/29/2019 13:16:45 Well controlled type 2 diabetes mellitus 767590966 E11.9 diet controlled , lost so much weight no need for meds. Chronic neck pain 040278 7990 107 M54.2 on meds, stable Hypercholesterolemia 136 88650 E78.00 well controlled 10/24 recheck in 4 months Neuropathy 656748714 G62 .9 from cervical dz, on gabapentin , sees pain management [id number] Yeny shultz MD Main Office [address] [place] [address] 12/18/2019 12:56:38 12/18/2019 13:58:31 Adult health examination 472205187 Z00.00 utd on screening, limited by neck pain and neuropathi c foot pain, sees GI often due to collagenou s colitis Hypercholesterolemia 136 89441 E78.00 LDL 134, pt with diet controlled dM, will increase pravastati n to 60mg a day and recheck after 6 month f/u Well contr olled type 2 diabetes mellitus 822935528 E11.9 diet controlled , good control despite weight gain Benign pro static hyperplasia 501081028 N40.0 med refilled, pt sees Chronic neck pain 241323 0389 107 M54.2 on meds, stable Collagenous colitis 1931 1003 K52.831 finally better control of symptoms, weight up and symptoms down will see GI next week looks much better [id number] Gordy Woodard MD Main Office [address] [facility] [address] [place] [address] 06/01/2020 15:33:50 06/01/2020 16:32:14 Localized swelling of left lower leg 5046943151 5232907 R22.42 and pain LLE, but no erythema/h eat - will check stat d-dimer & duplex u/s advised CK of upcoming stat d-dimer [id number] Yeny shultz MD Telehealt h [address] [facility] [address] [place], [place] [address] 06/06/2020 06:48:13 06/09/2020 12:09:18 Deep venous thrombosis of lower extremity 114898001 I82.409 new dx for pt, will refer to vascular to follow clot and assess lenght of treatment. Is tolerating eliquis well, no bleeding, no hx of malignancy , will have pt see urology for eval nad to rule out malignancy predisposi ng to DVT Benign pro static hyperplasia 313424584 N40.0 pt actually saw yesterday, note reviewed, they are getting a renal bladder US to rule out any malignancy in light of a new dx of unprovoked DVT exam showed BPH, no masses or nodules Collagenous colitis 1930 1003 K52.831 pt sees GI often, he states he is utd with his screening [id number] Yeny shultz MD Main Office [address] [facility] [address] [place], [place] [address] 06/15/2020 10:38:41 06/15/2020 11:25:57 Well controlled type 2 diabetes mellitus 888712612 E11.9 diet controlled , good control lost weight Hypercholesterolemia 136 82381 E78.00 continue meds Deep venou s thrombosis 605730770 I82.409 new, no obvious cause though was very sedentary with pandemic saw vascular, continue eliquis, reassess at 3 month tyrel, if all fine can stop eliquis, urology ordered some Us's to look for malignancy as associatin g factor. Collagenous colitis 1930 1003 K52.831 pt sees GI often, had a recent UGI, was smoking marijuana but has quit. [id number] Yeny shultz MD Main Office [address] [facility] [address] [place] [address] 08/26/2020 11:20:30 08/26/2020 11:45:13 Deep venous thrombosis 647845151 I82.409 see HPI left leg without pain or swelling, first unprovoked DVT except was more sedentary due to pandemic will refer to vascualr for f/u US and advice on length of tx, almost at 3 month tyrel, continu eliquis until instructio ns by vascular [id number] Yeny shultz MD Main Office [address] [facility] [address] [facility] [place] [address] 12/30/2020 10:14:49 12/30/2020 11:05:59 Insomnia 772116659 G47.00 change of meds and he tried tapering down, will address with psychiatry Fatigue 17258111 R53.83 check labs Collagenous colitis 193 1003 K52.831 flaring followed by GI Deep venou s thrombosis 512199522 I82.409 cotninpaulino meyer [id number] Yeny shultz MD Main Office [address] [facility] [address] [facility] [place] [address] 01/12/2021 10:17:01 01/12/2021 11:15:34 Adult health examination 240261084 Z00.00 utd on screening, limited by neck pain and neuropathi c foot pain, sees GI often due to collagenou s colitis Sees urology for BPH and they follow prostate exam Hypercholesterolemia 136 80691 E78.00 increase to 80mg due to LEL over 100 with DM, pt tolerates med well Well contr olled type 2 diabetes mellitus 207081632 E11.9 diet controlled recent A1C 6 Collagenous colitis 1930 1003 K52.831 flaring followed by GI Anxiety 38886168 F41.9 flared recently, pt looking for a psychiatri st, has meds from last provider for another month, [id number] Yeny shultz MD Main Office [address] [facility] [address] [facility] [place] [address] 05/18/2021 11:18:07 05/18/2021 12:07:22 Hypercholesterolemia 53866240 E78.00 ibetter cholestero l on higher dose Dyspnea 248967750 R06.00 vague complaint, one is throat irritation , pt will see ent, other is with stairs gets sob, is deconditio theo and runs dehydrated , pt to hydrate, get CXR and labs and see if improved with heartrate not being so high Well contr olled type 2 diabetes mellitus 900730238 E11.9 diet controlled recent A1C 6 Throat irritation 268530 007 R07.0 pt to see ent [id number] Mina Anaya MD Main Office [address] [facility] [address] [place], [place] [address] 08/16/2021 13:46:36 08/16/2021 15:07:07 Tachycardia 0469139 R00.0 EKG sinus tachycardi a, check labs, will need to see cardiology and have an echocardio gram. Dyspnea 171449142 R06.00 r/o chf Left upper quadrant pain 338418768 R10.12 r/o splenomega ly, mass pancreatic mass, CT appt is later today Left flank pain 08213499 9 R10.9 [id number] Mina Anaya MD Main Office [address] [facility] [address] [place], [place] [address] 08/23/2021 11:19:07 08/23/2021 20:17:36 [id number] Yeny suhltz MD Main Office [address] [facility] [address] [place], [place] [address] 08/24/2021 14:21:06 08/24/2021 15:43:28 Essential hypertension 48816615 I10 pt with tachycardi a, DM poorly controlled , will start low dose metoprolol to help with pulse Fatigue 47811670 R53.83 check labs Tachycardia 0965560 R00. 0 baseline pulse 90-100, running higher in office, pt does not feel it, EKG with NSR, recent labs normal (CBC, thyroid, bnp) will refer to cardiology for eval, ? need for monitor and echo Type 2 cub[place] betes mellitus without complication 048454908 E11.9 poor control, recent weight gain nad A1C up form mid 6 to high 7, start metformin, stop candy, 2 week followup. [id number] Yeny shultz MD Main Office [address] [facility] [address] [place], [place] [address] 09/07/2021 16:04:02 09/07/2021 16:47:35 Dyspnea on exertion 49592867 R06.09 will move up echo if possible and refer to pulmonary to do eval due to smoking history. will start symbicort as well [id number] Yeny shultz MD Main Office [address] [place] [address] 10/26/2021 15:07:43 10/26/2021 16:07:07 Essential hypertension 86795557 I10 continue meds Well contr olled type 2 diabetes mellitus 147804890 E11.9 diet controlled recent A1C was up in 06/27 but lost 5ls, recheck 11/27 Steatotic liver disease 110763333 K76.0 knows to control sugars, lose weight and control cholestero l Dyspnea on exertion 6084 5006 R06.09 getting cardiac eval, nuclear stress nxt week, echo with a ? of silent [place], requested report Dr Taveras is cardiology [id number] LIZZ LOPEZ MD Main Office [address] [facility] [address] [place], [place] [address] 02/01/2022 14:48:38 02/01/2022 15:24:11 Well controlled type 2 diabetes mellitus 671706794 E11.9 - well controlled - last HbA1c was 6.9 done in 11/2021- c/w metformin 500mg QD- will repeat HbA1c, BMP and check urine for microalbum inPt counseled on the following: The main goals of treatment in type 2 diabetes are to keep your blood sugar levels within your goal range and treat other medical conditions that go along with diabetes (like high blood pressure); it is also very important to stop smoking if you smoke. These measures will reduce your risk of complicati ons.>Blood sugar control It is important to keep your blood sugar levels at goal levels. This can help prevent long-term complicati ons that can result from poorly controlled blood sugar (including problems affecting the eyes, kidney, nervous system, and cardiovasc ular system).>H ome blood sugar testing Your doctor may instruct you to check your blood sugar yourself at home, especially if you take certain oral diabetes medicines or insulin. Home blood sugar testing is not usually necessary for people who manage their diabetes through diet only.>A random blood sugar test is based on blood drawn at any time of day, regardless of when you last ate. A fasting blood sugar test is a blood test done after not eating or drinking for 8 to 12 hours (usually overnight) . A normal fasting blood sugar is less than 100 mg/dL (5.6 mmol/L), although people with diabetes may have a different goal.>A1C testing Blood sugar control can also be estimated with a blood test called glycated hemoglobin , or A1C. The A1C blood test measures your average blood sugar level over the past two to three months. The goal A1C for most young people with type 2 diabetes is 7 percent (53 mmol/mol) or less, which correspond s to an average blood sugar of approximat venu 150 mg/dL (8.3 mmol/L) (table 1). Lowering your A1C level reduces your risk for kidney, eye, and nerve problems.> Reducing the risk of cardiovasc ular complicati ons The most common, serious, long-term complicati on of type 2 diabetes is cardiovasc ular disease, which can lead to problems like heart attack, stroke, and even . On average, people with type 2 diabetes have twice the risk of cardiovasc ular disease as people without diabetes.> Lower your risk of cardiovasc ular disease by: Quitting smoking, if you smoke and managing high blood pressure and high cholestero l with diet, exercise, and medicinesT aking a low-dose aspirin every day, if your health care provider recommends thisSome studies have shown that lowering A1C levels with certain medication s may also reduce your risk for cardiovasc ular disease. DIET AND EXERCISE IN TYPE 2 DIABETESDi et and exercise are the foundation of diabetes management .Changes in diet can improve many aspects of type 2 diabetes, including helping to control your weight, blood pressure, and your body's ability to produce and respond to insulin. The single most important thing most people can do to improve diabetes management and weight is to avoid all sugary beverages, such as soft drinks or some juices, or if this is not possible, to significan tly limit consumptio n. Limiting overall portion size is also very important. Regular exercise can also help control type 2 diabetes, even if you do not lose weight. Exercise is related to blood sugar control because it improves your body's response to insulin. Essential hypertension 74586945 I10 - well controlled - BP today 123/82- c/w metoprolol ER 25mg QD and terazosin 5mg QD-Dietary Approaches to Stop Hypertensi on (DASH) is an eating plan rich in fruits, vegetables , whole grains, fish, poultry, nuts, legumes, and low-fat dairy. These foods are high in berman nutrients such as potassium, magnesium, calcium, fiber, and protein. -Advised continued adherence to medication s and low salt diet - extensive counsellin g done regarding dietary habits. -Encourage d regular aerobic exercise 30 min for 4-5 x week. -BP monitoring at home advised to bring log at every visit -Side-effe cts of high BP can cause Stroke, Heart attack and even d/w pt -D/w pt when to call 911 or reach out to Health care provider: >Think you are having a reaction to a medicine you are taking. >Have headaches that keep coming back (recurring ). >Feel dizzy. >Have swelling in your ankles. >Have trouble with your vision. Dyspnea on exertion 6084 5006 R06.09 - Pt follows Dr. Taveras (cardiolog y) and Dr. Barba (pulmonlog ist) for this problem- cardiac: ECHO was a suboptimal study therefore patient underwent nuclear stress test which was negative. Will request results.- Pt has PFT testing with pulmonolog y, awaiting results- will continue to monitor Tachycardia 0551209 R00. 0 - HR today 95- c/w metoprolol 25mg ER QD [id number] Yeny shultz MD Main Office [address] [facility] [address] [facility] [place] [address] 08/03/2022 13:49:57 08/03/2022 14:33:30 Essential hypertension 07271331 I10 continue meds, well controlled Obstructiv e sleep apnea syndrome 75870316 G47.33 CPAP Well contr olled type 2 diabetes mellitus 206889500 E11.9 recheck labs, lost weight Major depr ession in remission 88877434 F32.5 mood is well treated. Deep venou s thrombosis 615781110 I82.409 cotninue eliquis Hypercholesterolemia 136 84976 E78.00 ibetter cholestero l on higher dose [id number] LIZZ LOPEZ MD Main Office [address] [facility] [address] [facility] [place] [address] 12/06/2022 13:35:53 12/06/2022 14:22:11 Advance directive discussed with patient 677453866 Z71.89 - discussed MOLTS and HCP Adult heal th examination 845859928 Z00.00 Health Maintenanc e Deven) Patient was counseled on healthy diet, exercise and nutrition. BMI is 29.2. B) Screening: Last PSADate: Result: ???Next: ordered Last Colonoscop y: start at age 45-65Date: 07/26/2017R esult: collagenou s colitisNex t: next in 10 years C) Vaccines:I nfluenza: 12/12/2021Td AP: 12/19/2017Z aurelio: 08/06/2018 , 10/14/2018 (live)PPSV 23: 03/14/2010 PCV20:COVI , 08/11/2020, 02/11/2021, 08/10/2021 D) Routine blood work orderedE) Updated patient's history RTC in one year for annual exam or sooner if any acute complaints Anxiety 95076448 F41.9 - under good control- GEN-7 score 2- c/w clonazepam 0.5mg QD- desvenlafa xine succinate ER 100mg- counsellin g provided Benign pro static hyperplasia [id number] N40.0 - c/w dutasterid e 0.5mg and terazosin 5mg QD Deep venou s thrombosis [id number] I82.409 - CHADVASC 2 score of 4, unprovoked will need for lifestyle- c/w eliquis 2.5mg BID- counselled on bleeding risk- pt will no longer be following with hematology as MD is retiring Essential hypertension [id number] I10 - well controlled - BP today 107/69- c/w metoprolol ER 25mg QD Pt counselled on:-Dietar y Approaches to Stop Hypertensi on (DASH) is an eating plan rich in fruits, vegetables , whole grains, fish, poultry, nuts, legumes, and low-fat dairy. These foods are high in berman nutrients such as potassium, magnesium, calcium, fiber, and protein.-A dvised continued adherence to medication s and low salt diet - extensive counsellin g done regarding dietary habits.-En couraged regular aerobic exercise 30 min for 4-5 x week.-BP monitoring at home advised to bring log at every visit-Side -effects of high BP can cause Stroke, Heart attack and even d/w pt-D/w pt when to call 911 or reach out to Health care provider:> Think you are having a reaction to a medicine you are taking.>Don ve headaches that keep coming back (recurring ).>Feel dizzy.>Hav e swelling in your ankles.>Don ve trouble with your vision. Hypercholesterolemia 136 36612 E78.00 - at goal- lipid panel 08/28: cholestero l-173, triglyceri kumar-146, HDL-33, LDL-111- c/w pravastati n 80mg QD- ordered repeat levels Pt counselled on:- Eat a heart-heal thy diet- Choose healthy fats. Avoid saturated fats that are found primarily in red meat, goddard, sausage, and full-fat dairy products. Advised to choose lean proteins like chicken, turkey, and fish when possible. Switch to low-fat or fat-free dairy. And use monounsatu rated fats like olive and canola oil for cooking.- Cut out the trans fats. Trans fats are found in fried food and processed foods, like cookies, crackers, and other snacks.- Eat more omega-3s. Counseled on eating more fish, including salmon, mackerel, calderón ,nuts and seeds, like walnuts and flax seeds.- Increase your fiber intake. By eating more oats, brain, fruits, beans, and vegetables , can lower your LDL cholestero l levels.- Eat more fruits and veggies. Obstructiv e sleep apnea syndrome [id number] G47.33 - does not have CPAP machine, pt has never had one Steatotic liver disease [id number] K76.0 - ordered AST/ALT levels Well contr olled type 2 diabetes mellitus [id number] E11.9 - well controlled - last HbA1c was 6.2 done on 08/07/22- c/w metformin 500mg QD Pt counseled on the following: The main goals of treatment in type 2 diabetes are to keep your blood sugar levels within your goal range and treat other medical conditions that go along with diabetes (like high blood pressure); it is also very important to stop smoking if you smoke. These measures will reduce your risk of complicati ons.>Blood sugar control It is important to keep your blood sugar levels at goal levels. This can help prevent long-term complicati ons that can result from poorly controlled blood sugar (including problems affecting the eyes, kidney, nervous system, and cardiovasc ular system).>H ome blood sugar testing Your doctor may instruct you to check your blood sugar yourself at home, especially if you take certain oral diabetes medicines or insulin. Home blood sugar testing is not usually necessary for people who manage their diabetes through diet only.>A random blood sugar test is based on blood drawn at any time of day, regardless of when you last ate. A fasting blood sugar test is a blood test done after not eating or drinking for 8 to 12 hours (usually overnight) . A normal fasting blood sugar is less than 100 mg/dL (5.6 mmol/L), although people with diabetes may have a different goal.>A1C testing Blood sugar control can also be estimated with a blood test called glycated hemoglobin , or A1C. The A1C blood test measures your average blood sugar level over the past two to three months. The goal A1C for most young people with type 2 diabetes is 7 percent (53 mmol/mol) or less, which correspond s to an average blood sugar of approximat venu 150 mg/dL (8.3 mmol/L) (table 1). Lowering your A1C level reduces your risk for kidney, eye, and nerve problems.> Reducing the risk of cardiovasc ular complicati ons The most common, serious, long-term complicati on of type 2 diabetes is cardiovasc ular disease, which can lead to problems like heart attack, stroke, and even . On average, people with type 2 diabetes have twice the risk of cardiovasc ular disease as people without diabetes.> Lower your risk of cardiovasc ular disease by: Quitting smoking, if you smoke and managing high blood pressure and high cholestero l with diet, exercise, and medicinesT aking a low-dose aspirin every day, if your health care provider recommends thisSome studies have shown that lowering A1C levels with certain medication s may also reduce your risk for cardiovasc ular disease. Major depr ession in remission [id number] F32.5 - under good control- PHQ-2 score of 1- c/w clonazepam 0.5mg QD- desvenlafa xine succinate ER 100mg- denies SI/HI- counsellin g provided Administra tion of pneumococcal vaccine [id number] Z23 Varicella vaccination 68 [id number] Z23 Collagenous colitis 1931 1003 K52.831 - c/w budesonide ER 3mg- under good control Hyperlipidemia 50195969 E78.5 Vitamin D deficiency 347 27161 E55.9 Abdominal aortic aneurysm 187233812 I71.40 [id number] LIZZ LOPEZ MD Main Office [address] [facility] [address] [place] [address] 06/10/2023 10:42:37 06/10/2023 11:07:58 Anxiety 07443353 F41.9 - under good control- c/w clonazepam 0.5mg QD- desvenlafa xine succinate ER 100mg- counsellin g provided Essential hypertension 88894772 I10 - well controlled - BP today 117/73- will stop metoprolol succinate 25mg ER has patient has had target blood pressures for several years- if elevated (BP 130/80) will restart medication > is on a-may for BPH which can also help with BP Pt counselled on:-Dietar y Approaches to Stop Hypertensi on (DASH) is an eating plan rich in fruits, vegetables , whole grains, fish, poultry, nuts, legumes, and low-fat dairy. These foods are high in berman nutrients such as potassium, magnesium, calcium, fiber, and protein.-A dvised continued adherence to medication s and low salt diet - extensive counsellin g done regarding dietary habits.-En couraged regular aerobic exercise 30 min for 4-5 x week.-BP monitoring at home advised to bring log at every visit-Side -effects of high BP can cause Stroke, Heart attack and even d/w pt-D/w pt when to call 911 or reach out to Health care provider:> Think you are having a reaction to a medicine you are taking.>Don ve headaches that keep coming back (recurring ).>Feel dizzy.>Hav e swelling in your ankles.>Don ve trouble with your vision. Hypercholesterolemia 136 57201 E78.00 - elevated- lipid panel 12/29: cholestero l-182, triglyceri kumar-144, HDL-33, LDL-121- switched pravastati n 80mg QD to rosuvastat in 20mg- ordered repeat levels Pt counselled on:- Eat a heart-heal thy diet- Choose healthy fats. Avoid saturated fats that are found primarily in red meat, goddard, sausage, and full-fat dairy products. Advised to choose lean proteins like chicken, turkey, and fish when possible. Switch to low-fat or fat-free dairy. And use monounsatu rated fats like olive and canola oil for cooking.- Cut out the trans fats. Trans fats are found in fried food and processed foods, like cookies, crackers, and other snacks.- Eat more omega-3s. Counseled on eating more fish, including salmon, mackerel, calderón ,nuts and seeds, like walnuts and flax seeds.- Increase your fiber intake. By eating more oats, brain, fruits, beans, and vegetables , can lower your LDL cholestero l levels.- Eat more fruits and veggies. Well contr olled type 2 diabetes mellitus [id number] E11.9 - well controlled - last HbA1c was 6.3 done on 12/07/22- c/w metformin 500mg QD- eye exam: 08/26/2022- foot exam: 05/07/2023 (does with gun striper )- on statin medication Pt counseled on the following: The main goals of treatment in type 2 diabetes are to keep your blood sugar levels within your goal range and treat other medical conditions that go along with diabetes (like high blood pressure); it is also very important to stop smoking if you smoke. These measures will reduce your risk of complicati ons.>Blood sugar control It is important to keep your blood sugar levels at goal levels. This can help prevent long-term complicati ons that can result from poorly controlled blood sugar (including problems affecting the eyes, kidney, nervous system, and cardiovasc ular system).>H ome blood sugar testing Your doctor may instruct you to check your blood sugar yourself at home, especially if you take certain oral diabetes medicines or insulin. Home blood sugar testing is not usually necessary for people who manage their diabetes through diet only.>A random blood sugar test is based on blood drawn at any time of day, regardless of when you last ate. A fasting blood sugar test is a blood test done after not eating or drinking for 8 to 12 hours (usually overnight) . A normal fasting blood sugar is less than 100 mg/dL (5.6 mmol/L), although people with diabetes may have a different goal.>A1C testing Blood sugar control can also be estimated with a blood test called glycated hemoglobin , or A1C. The A1C blood test measures your average blood sugar level over the past two to three months. The goal A1C for most young people with type 2 diabetes is 7 percent (53 mmol/mol) or less, which correspond s to an average blood sugar of approximat venu 150 mg/dL (8.3 mmol/L) (table 1). Lowering your A1C level reduces your risk for kidney, eye, and nerve problems.> Reducing the risk of cardiovasc ular complicati ons The most common, serious, long-term complicati on of type 2 diabetes is cardiovasc ular disease, which can lead to problems like heart attack, stroke, and even . On average, people with type 2 diabetes have twice the risk of cardiovasc ular disease as people without diabetes.> Lower your risk of cardiovasc ular disease by: Quitting smoking, if you smoke and managing high blood pressure and high cholestero l with diet, exercise, and medicinesT aking a low-dose aspirin every day, if your health care provider recommends thisSome studies have shown that lowering A1C levels with certain medication s may also reduce your risk for cardiovasc ular disease. [id number] LIZZ LOPEZ MD Main Office [address] [phone] 12/10/2023 10:07:08 12/10/2023 10:38:58 Adult health examination [id number] Z00.00 [facility]) Patient was counseled on healthy diet, exercise and nutrition. BMI is 29.2. B) Screening: Last PSADate: Result: ???Next: ordered Last Colonoscop y: start at age 45-65Date: 07/26/2017R esult: collagenou s colitisNex t: next in 10 years Triple A: negative Low dose CT scan: does not meet criteria C) Vaccines:I nfluenza: 12/24/2022T dAP: 12/19/2017Z aurelio: 08/06/2018 , 10/14/2018 (live)PPSV 23: 03/14/2010 PCV20: 3CO VID: 07/20/2020, 08/11/2020, 02/11/2021, 08/10/2021, 12/24/2022R SV: 03/23/2023 D) Routine blood work orderedE) Updated patient's history RTC in one year for annual exam or sooner if any acute complaints Anxiety [id number] F41.9 - GEN-7 score of 7- under good control- c/w clonazepam 0.5mg QD- desvenlafa xine succinate ER 100mg- counsellin g provided Essential hypertension 56516125 I10 - well controlled - BP today 127/77- c/w metoprolol succinate ER 25mg QD Pt counselled on:-Dietar y Approaches to Stop Hypertensi on (DASH) is an eating plan rich in fruits, vegetables , whole grains, fish, poultry, nuts, legumes, and low-fat dairy. These foods are high in berman nutrients such as potassium, magnesium, calcium, fiber, and protein.-A dvised continued adherence to medication s and low salt diet - extensive counsellin g done regarding dietary habits.-En couraged regular aerobic exercise 30 min for 4-5 x week.-BP monitoring at home advised to bring log at every visit-Side -effects of high BP can cause Stroke, Heart attack and even d/w pt-D/w pt when to call 911 or reach out to Health care provider:> Think you are having a reaction to a medicine you are taking.>Don ve headaches that keep coming back (recurring ).>Feel dizzy.>Hav e swelling in your ankles.>Don ve trouble with your vision. Hypercholesterolemia 136 31665 E78.00 - at goal- lipid panel 06/29: cholestero l-152, triglyceri kumar-131, HDL-37, LDL-95- c/w rosuvastat in 20mg- ordered repeat levels Pt counselled on:- Eat a heart-heal thy diet- Choose healthy fats. Avoid saturated fats that are found primarily in red meat, goddard, sausage, and full-fat dairy products. Advised to choose lean proteins like chicken, turkey, and fish when possible. Switch to low-fat or fat-free dairy. And use monounsatu rated fats like olive and canola oil for cooking.- Cut out the trans fats. Trans fats are found in fried food and processed foods, like cookies, crackers, and other snacks.- Eat more omega-3s. Counseled on eating more fish, including salmon, mackerel, calderón ,nuts and seeds, like walnuts and flax seeds.- Increase your fiber intake. By eating more oats, brain, fruits, beans, and vegetables , can lower your LDL cholestero l levels.- Eat more fruits and veggies. Obstructiv e sleep apnea syndrome 02962759 G47.33 - does not have CPAP machine, pt has never had one Steatotic liver disease [id number] K76.0 - ordered AST/ALT levels Well contr olled type 2 diabetes mellitus [id number] E11.9 - well controlled - last HbA1c was 6.4 done on 06/2023- c/w metformin 500mg BID- eye exam: 08/26/2022- foot exam: 05/07/2023 (does with gun striper )- on statin medication Pt counseled on the following: The main goals of treatment in type 2 diabetes are to keep your blood sugar levels within your goal range and treat other medical conditions that go along with diabetes (like high blood pressure); it is also very important to stop smoking if you smoke. These measures will reduce your risk of complicati ons.>Blood sugar control It is important to keep your blood sugar levels at goal levels. This can help prevent long-term complicati ons that can result from poorly controlled blood sugar (including problems affecting the eyes, kidney, nervous system, and cardiovasc ular system).>H ome blood sugar testing Your doctor may instruct you to check your blood sugar yourself at home, especially if you take certain oral diabetes medicines or insulin. Home blood sugar testing is not usually necessary for people who manage their diabetes through diet only.>A random blood sugar test is based on blood drawn at any time of day, regardless of when you last ate. A fasting blood sugar test is a blood test done after not eating or drinking for 8 to 12 hours (usually overnight) . A normal fasting blood sugar is less than 100 mg/dL (5.6 mmol/L), although people with diabetes may have a different goal.>A1C testing Blood sugar control can also be estimated with a blood test called glycated hemoglobin , or A1C. The A1C blood test measures your average blood sugar level over the past two to three months. The goal A1C for most young people with type 2 diabetes is 7 percent (53 mmol/mol) or less, which correspond s to an average blood sugar of approximat venu 150 mg/dL (8.3 mmol/L) (table 1). Lowering your A1C level reduces your risk for kidney, eye, and nerve problems.> Reducing the risk of cardiovasc ular complicati ons The most common, serious, long-term complicati on of type 2 diabetes is cardiovasc ular disease, which can lead to problems like heart attack, stroke, and even . On average, people with type 2 diabetes have twice the risk of cardiovasc ular disease as people without diabetes.> Lower your risk of cardiovasc ular disease by: Quitting smoking, if you smoke and managing high blood pressure and high cholestero l with diet, exercise, and medicinesT aking a low-dose aspirin every day, if your health care provider recommends thisSome studies have shown that lowering A1C levels with certain medication s may also reduce your risk for cardiovasc ular disease. Benign pro static hyperplasia [id number] N40.0 - c/w dutasterid e 0.5mg and terazosin 5mg QD- will check on PSA Deep venou s thrombosis [id number] I82.409 - CHADVASC 2 score of 4, unprovoked will need for lifestyle- c/w eliquis 2.5mg BID- counselled on bleeding risk- pt will no longer be following with hematology as MD is retiring Fatigue 08546141 R53.83 Z00.00 [id number] LIZZ LOPEZ MD Main Office [address] [facility] [address] [facility] [place] [phone] 06/08/2024 09:51:41 06/08/2024 10:22:55 Anxiety 71149449 F41.9 - under good control- c/w clonazepam 0.5mg QD- due patient's increase in stress will increase desvenlafa xine succinate ER 100mg to 125mg- counsellin g provided- RTC in 3 months Essential hypertension 40732176 I10 - elevated today- BP today 145/87 and on repeat 134/82> most likely due to patient's increase in stress -> at this time will monitor- c/w metoprolol succinate ER 25mg QD- RTC in 3 months Pt counselled on:-Dietar y Approaches to Stop Hypertensi on (DASH) is an eating plan rich in fruits, vegetables , whole grains, fish, poultry, nuts, legumes, and low-fat dairy. These foods are high in berman nutrients such as potassium, magnesium, calcium, fiber, and protein.-A dvised continued adherence to medication s and low salt diet - extensive counsellin g done regarding dietary habits.-En couraged regular aerobic exercise 30 min for 4-5 x week.-BP monitoring at home advised to bring log at every visit-Side -effects of high BP can cause Stroke, Heart attack and even d/w pt-D/w pt when to call 911 or reach out to Health care provider:> Think you are having a reaction to a medicine you are taking.>Don ve headaches that keep coming back (recurring ).>Feel dizzy.>Hav e swelling in your ankles.>Don ve trouble with your vision. Hypercholesterolemia 136 39405 E78.00 - at goal- lipid panel 12/30: cholestero l-154, triglyceri kumar-150, HDL-33, LDL-94- c/w rosuvastat in 20mg Pt counselled on:- Eat a heart-heal thy diet- Choose healthy fats. Avoid saturated fats that are found primarily in red meat, goddard, sausage, and full-fat dairy products. Advised to choose lean proteins like chicken, turkey, and fish when possible. Switch to low-fat or fat-free dairy. And use monounsatu rated fats like olive and canola oil for cooking.- Cut out the trans fats. Trans fats are found in fried food and processed foods, like cookies, crackers, and other snacks.- Eat more omega-3s. Counseled on eating more fish, including salmon, mackerel, calderón ,nuts and seeds, like walnuts and flax seeds.- Increase your fiber intake. By eating more oats, brain, fruits, beans, and vegetables , can lower your LDL cholestero l levels.- Eat more fruits and veggies. Obstructiv e sleep apnea syndrome 11778170 G47.33 - does not have CPAP machine, pt has never had one Well contr olled type 2 diabetes mellitus [id number] E11.9 - well controlled - last HbA1c was 6.2 done on 03/2024- c/w metformin 500mg BID- eye exam: 08/26/2022- foot exam: 05/07/2023 (does with gun striper )- on statin medication Pt counseled on the following: The main goals of treatment in type 2 diabetes are to keep your blood sugar levels within your goal range and treat other medical conditions that go along with diabetes (like high blood pressure); it is also very important to stop smoking if you smoke. These measures will reduce your risk of complicati ons.>Blood sugar control It is important to keep your blood sugar levels at goal levels. This can help prevent long-term complicati ons that can result from poorly controlled blood sugar (including problems affecting the eyes, kidney, nervous system, and cardiovasc ular system).>H ome blood sugar testing Your doctor may instruct you to check your blood sugar yourself at home, especially if you take certain oral diabetes medicines or insulin. Home blood sugar testing is not usually necessary for people who manage their diabetes through diet only.>A random blood sugar test is based on blood drawn at any time of day, regardless of when you last ate. A fasting blood sugar test is a blood test done after not eating or drinking for 8 to 12 hours (usually overnight) . A normal fasting blood sugar is less than 100 mg/dL (5.6 mmol/L), although people with diabetes may have a different goal.>A1C testing Blood sugar control can also be estimated with a blood test called glycated hemoglobin , or A1C. The A1C blood test measures your average blood sugar level over the past two to three months. The goal A1C for most young people with type 2 diabetes is 7 percent (53 mmol/mol) or less, which correspond s to an average blood sugar of approximat venu 150 mg/dL (8.3 mmol/L) (table 1). Lowering your A1C level reduces your risk for kidney, eye, and nerve problems.> Reducing the risk of cardiovasc ular complicati ons The most common, serious, long-term complicati on of type 2 diabetes is cardiovasc ular disease, which can lead to problems like heart attack, stroke, and even . On average, people with type 2 diabetes have twice the risk of cardiovasc ular disease as people without diabetes.> Lower your risk of cardiovasc ular disease by: Quitting smoking, if you smoke and managing high blood pressure and high cholestero l with diet, exercise, and medicinesT aking a low-dose aspirin every day, if your health care provider recommends thisSome studies have shown that lowering A1C levels with certain medication s may also reduce your risk for cardiovasc ular disease. Deep venou s thrombosis [id number] I82.409 - CHADVASC 2 score of 4, unprovoked will need for lifestyle- c/w eliquis 2.5mg BID- counselled on bleeding risk- pt will no longer be following with hematology as MD is retiring [id number] LIZZ LOPEZ MD Main Office [address] [facility] [address] [facility] [place] [address] 09/08/2024 09:48:31 09/08/2024 10:20:19 Anxiety 99042116 F41.9 - under good control- c/w clonazepam 0.5mg QD- c/w desvenlafa xine succinate ER 125mg QD- counsellin g provided- RTC in 3 months Essential hypertension 45651550 I10 - at goal- BP today 127/69- c/w metoprolol succinate ER 25mg QD- RTC in 3 months Pt counselled on:-Dietar y Approaches to Stop Hypertensi on (DASH) is an eating plan rich in fruits, vegetables , whole grains, fish, poultry, nuts, legumes, and low-fat dairy. These foods are high in berman nutrients such as potassium, magnesium, calcium, fiber, and protein.-A dvised continued adherence to medication s and low salt diet - extensive counsellin g done regarding dietary habits.-En couraged regular aerobic exercise 30 min for 4-5 x week.-BP monitoring at home advised to bring log at every visit-Side -effects of high BP can cause Stroke, Heart attack and even d/w pt-D/w pt when to call 911 or reach out to Health care provider:> Think you are having a reaction to a medicine you are taking.>Don ve headaches that keep coming back (recurring ).>Feel dizzy.>Hav e swelling in your ankles.>Don ve trouble with your vision. Hypercholesterolemia 136 35305 E78.00 - at goal- lipid panel 12/30: cholestero l-154, triglyceri kumar-150, HDL-33, LDL-94- c/w rosuvastat in 20mg Pt counselled on:- Eat a heart-heal thy diet- Choose healthy fats. Avoid saturated fats that are found primarily in red meat, goddard, sausage, and full-fat dairy products. Advised to choose lean proteins like chicken, turkey, and fish when possible. Switch to low-fat or fat-free dairy. And use monounsatu rated fats like olive and canola oil for cooking.- Cut out the trans fats. Trans fats are found in fried food and processed foods, like cookies, crackers, and other snacks.- Eat more omega-3s. Counseled on eating more fish, including salmon, mackerel, calderón ,nuts and seeds, like walnuts and flax seeds.- Increase your fiber intake. By eating more oats, brain, fruits, beans, and vegetables , can lower your LDL cholestero l levels.- Eat more fruits and veggies. Well contr olled type 2 diabetes mellitus [id number] E11.9 - well controlled - last HbA1c was 6.2 done on 03/2024- c/w metformin 500mg BID- eye exam: 08/26/2022- foot exam: 07/27/2024- on statin medication Pt counseled on the following: The main goals of treatment in type 2 diabetes are to keep your blood sugar levels within your goal range and treat other medical conditions that go along with diabetes (like high blood pressure); it is also very important to stop smoking if you smoke. These measures will reduce your risk of complicati ons.>Blood sugar control It is important to keep your blood sugar levels at goal levels. This can help prevent long-term complicati ons that can result from poorly controlled blood sugar (including problems affecting the eyes, kidney, nervous system, and cardiovasc ular system).>H ome blood sugar testing Your doctor may instruct you to check your blood sugar yourself at home, especially if you take certain oral diabetes medicines or insulin. Home blood sugar testing is not usually necessary for people who manage their diabetes through diet only.>A random blood sugar test is based on blood drawn at any time of day, regardless of when you last ate. A fasting blood sugar test is a blood test done after not eating or drinking for 8 to 12 hours (usually overnight) . A normal fasting blood sugar is less than 100 mg/dL (5.6 mmol/L), although people with diabetes may have a different goal.>A1C testing Blood sugar control can also be estimated with a blood test called glycated hemoglobin , or A1C. The A1C blood test measures your average blood sugar level over the past two to three months. The goal A1C for most young people with type 2 diabetes is 7 percent (53 mmol/mol) or less, which correspond s to an average blood sugar of approximat venu 150 mg/dL (8.3 mmol/L) (table 1). Lowering your A1C level reduces your risk for kidney, eye, and nerve problems.> Reducing the risk of cardiovasc ular complicati ons The most common, serious, long-term complicati on of type 2 diabetes is cardiovasc ular disease, which can lead to problems like heart attack, stroke, and even . On average, people with type 2 diabetes have twice the risk of cardiovasc ular disease as people without diabetes.> Lower your risk of cardiovasc ular disease by: Quitting smoking, if you smoke and managing high blood pressure and high cholestero l with diet, exercise, and medicinesT aking a low-dose aspirin every day, if your health care provider recommends thisSome studies have shown that lowering A1C levels with certain medication s may also reduce your risk for cardiovasc ular disease. 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 BMI is 29.5. B) Screening: Last PSADate: 06/15/2024R esult: 1.09Next: 06/2025 Last Colonoscop y: start at age 45-65Date: 07/26/2017R esult: collagenou s colitisNex t: next in 10 years Triple A: negative Low dose CT scan: does not meet criteria C) Vaccines:I nfluenza: 12/21/2024T dAP: 12/19/2017Z aurelio: 08/06/2018 , 10/14/2018 (live)PPSV 23: 03/14/2010 PCV20: 3CO VID: 07/20/2020, 08/11/2020, 02/11/2021, 08/10/2021, 12/24/2022, 12/12/2023, 12/21/2024R SV: 03/23/2023 D) Routine blood work orderedE) Updated patient's history RTC in one year for annual exam or sooner if any acute complaints Anxiety 15142313 F41.9 - worsening, pt is worried about his mother who is not doing well- GEN-7 score of 8- c/w clonazepam 0.5mg QD- c/w desvenlafa xine succinate ER 125mg QD- counsellin yolis provided- RTC in 3 months Essential hypertension [id number] I10 - at goal- BP today 123/73- c/w metoprolol succinate ER 25mg QD Pt counselled on:-Dietar y Approaches to Stop Hypertensi on (DASH) is an eating plan rich in fruits, vegetables , whole grains, fish, poultry, nuts, legumes, and low-fat dairy. These foods are high in berman nutrients such as potassium, magnesium, calcium, fiber, and protein.-A dvised continued adherence to medication s and low salt diet - extensive counsellin g done regarding dietary habits.-En couraged regular aerobic exercise 30 min for 4-5 x week.-BP monitoring at home advised to bring log at every visit-Side -effects of high BP can cause Stroke, Heart attack and even d/w pt-D/w pt when to call 911 or reach out to Health care provider:> Think you are having a reaction to a medicine you are taking.>Don ve headaches that keep coming back (recurring ).>Feel dizzy.>Hav e swelling in your ankles.>Don ve trouble with your vision. Hypercholesterolemia 136 96398 E78.00 - at goal- lipid panel 12/30: cholestero l-154, triglyceri kumar-150, HDL-33, LDL-94- c/w rosuvastat in 20mg- ordered repeat levels Pt counselled on:- Eat a heart-heal thy diet- Choose healthy fats. Avoid saturated fats that are found primarily in red meat, goddard, sausage, and full-fat dairy products. Advised to choose lean proteins like chicken, turkey, and fish when possible. Switch to low-fat or fat-free dairy. And use monounsatu rated fats like olive and canola oil for cooking.- Cut out the trans fats. Trans fats are found in fried food and processed foods, like cookies, crackers, and other snacks.- Eat more omega-3s. Counseled on eating more fish, including salmon, mackerel, calderón ,nuts and seeds, like walnuts and flax seeds.- Increase your fiber intake. By eating more oats, brain, fruits, beans, and vegetables , can lower your LDL cholestero l levels.- Eat more fruits and veggies. Well contr olled type 2 diabetes mellitus [id number] E11.9 - well controlled - last HbA1c was 6.2 done on 03/2024- c/w metformin 500mg BID- eye exam: 08/26/2022- foot exam: 07/27/2024- on statin medication Pt counseled on the following: The main goals of treatment in type 2 diabetes are to keep your blood sugar levels within your goal range and treat other medical conditions that go along with diabetes (like high blood pressure); it is also very important to stop smoking if you smoke. These measures will reduce your risk of complicati ons.>Blood sugar control It is important to keep your blood sugar levels at goal levels. This can help prevent long-term complicati ons that can result from poorly controlled blood sugar (including problems affecting the eyes, kidney, nervous system, and cardiovasc ular system).>H ome blood sugar testing Your doctor may instruct you to check your blood sugar yourself at home, especially if you take certain oral diabetes medicines or insulin. Home blood sugar testing is not usually necessary for people who manage their diabetes through diet only.>A random blood sugar test is based on blood drawn at any time of day, regardless of when you last ate. A fasting blood sugar test is a blood test done after not eating or drinking for 8 to 12 hours (usually overnight) . A normal fasting blood sugar is less than 100 mg/dL (5.6 mmol/L), although people with diabetes may have a different goal.>A1C testing Blood sugar control can also be estimated with a blood test called glycated hemoglobin , or A1C. The A1C blood test measures your average blood sugar level over the past two to three months. The goal A1C for most young people with type 2 diabetes is 7 percent (53 mmol/mol) or less, which correspond s to an average blood sugar of approximat venu 150 mg/dL (8.3 mmol/L) (table 1). Lowering your A1C level reduces your risk for kidney, eye, and nerve problems.> Reducing the risk of cardiovasc ular complicati ons The most common, serious, long-term complicati on of type 2 diabetes is cardiovasc ular disease, which can lead to problems like heart attack, stroke, and even . On average, people with type 2 diabetes have twice the risk of cardiovasc ular disease as people without diabetes.> Lower your risk of cardiovasc ular disease by: Quitting smoking, if you smoke and managing high blood pressure and high cholestero l with diet, exercise, and medicinesT aking a low-dose aspirin every day, if your health care provider recommends thisSome studies have shown that lowering A1C levels with certain medication s may also reduce your risk for cardiovasc ular disease. Steatotic liver disease [id number] K76.0 - ordered AST/ALT levels Obstructiv e sleep apnea syndrome 96845877 G47.33 - does not have CPAP machine, pt has never had one Collagenous colitis 193 1003 K52.831 - c/w budesonide ER 3mg- under good control Benign pro static hyperplasia [id number] N40.0 - c/w dutasterid e 0.5mg and terazosin 5mg QD Deep venou s thrombosis [id number] I82.409 - CHADVASC 2 score of 4, unprovoked will need for lifetime- c/w eliquis 2.5mg BID- counselled on bleeding risk- pt will no longer be following with hematology as MD is retiring Lipoma of back 963463947 D17.1 9376871 - pt wishes to have it removed- located near the left shoulder- pt referred to surgery -> declined at this time Fatigue 00699239 R53.83 Z00.00 Lumbar radiculopathy 128 589476 M54.16 35785 - worsening which is also affecting his mood- increased gabapentin dosage to 3600mg (1200mg TID)- ordered repeat MRI of the lumbar spine to check on severity- patient is not interested in surgical evaluation - if however interestin g in steroid injection, will refer after completion of MRI- patient does not want to be prescribed narcotic medication Mood disorder [id number] F 39 57286 - PHQ-9 score of 10- due to cheyenne's mother being very ill and patient's pain not well controlled - c/w desvenlafa xine succinate ER 125mg QD- will focus on trying to get patient's pain under better control Health Concerns Section Related Observation LastModified by Organization Detai ls LastModified Time None Recorded Concern Status LastModified by Organization Details LastModified Time None Recorded Advance Directives Directive Y: Payers Insurance Date Sequence Insurance Name Policy Number Policy Ashton Covered Member ID Ashton Member ID Guarantor Name 09/07/2024 1 [place] [id number] Carlos Alberto Bey III [id number] Carlos Alberto Bey 01/12/2025 1 [place] [employer] Carlos Alberto Bey III [id number] Carlos Alberto Bey 01/22/2025 2 [place] [id number] Carlos Alberto Bey II [id number] Carlos Alberto Bey Notes Date Note Type Note Provider Name and Address Organization Details Recorded Time 4 text/html Hypertension F/UReported by PatientHPIFor lifestyle, patient reportsnot exercising regularlybut reportslimiting/avoiding salt. For associated symptoms, patient reportsno dizziness,no lightheadedness,no chest pain,no shortness of breath,no palpitations,no edema, andno calf pain with exertion. For medications, patient reportstaking medications as directedandno side effects from medication. HyperlipidemiaReported by PatientHPIFor type of hyperlipidemia, patient reportshypercholesterolem ia. For duration, patient reportschronic. For control, patient reportsnot at goal. For compliance, patient reportsdoes not exercisebut reportscompliant with diet. For risk factors, patient reportsdiabetesandhyperte nsion. Diabetes F/UReported by PatientHPIFor context, patient reportsseeing eye doctor regularlyandchecking feet regularly. For associated symptoms, patient reportsno weight gain,no weight loss,no dizziness,no sweats,no headaches,no confusion,no increased thirst,no increased appetite,no increased urination,no blurred vision,no numbness of feet, andno calluses on feet. Carlos Alberto Bey is a 67 year old M who presented to the clinic for his 6 month follow-up. Patient has no complaints at this time. LIZZ LOPEZ MD [facility], [address], [facility] [place] 06/10/2023 12:41:39 4 text/html Medicare Annual Wellness VisitReported by PatientSocial/Behavioral HistoryFor physical activity, patient reportsdecreased physical activity(walking, pt does have several msk complaints has chronic neck and back problems). For diet and nutrition, patient reportshealthy diet. For fracture risk, patient reportsno history of fractures.Mental Status:For depression risk, patient reportsnever feels sad, empty, or tearfulandno loss of interest in activities. For orientation, patient reportsno disorientation to time,no disorientation to date, andno disorientation to place. For concentration and memory, patient reportsno decreased concentrating ability,no memory lapses or loss, anddoes not forget words. For speech/motor difficulties, patient reportsno speech difficulties.Functional AbilityFor hearing, patient reportsno loss of hearing. For vision, patient reportsno vision problems. For activities of daily living, patient reportsable to bathe with limited or no assistance,able to contol urination and bowels,able to dress with limited or no assistance,able to feed self with limited or no assistance,able to get out of chair or bed with limited or no assistance,able to groom with limited or no assistance, andable to toilet with limited or no assistance. For instrumental activities of daily living, patient reportsable to do house work with limited or no assistance,able to grocery shop with limited or no assistance,able to manage medications with limited or no assistance,able to manage money with limited or no assistance,able to prepare meals with limited or no assistance, andable to use the phone with limited or no assistance. For falls risk assessment, patient reportsno frequent falls while walkingandno fall in the past year. For home safety, patient reportsno unsafe stairs,no unsafe gas appliances, andno vision or hearing loss while driving. Carlos Alberto Bey is a 68 year old M who presents to the clinic for his annual Medicare visit. Visit Type: Annual How would you rate your health? Fair Have you been discharged from the hospital recently? NoHave you been to the emergency room or urgent care recently? NoDo you have any significant previous hospital stays, injuries, or treatment? No Home Safety:Is the tub or shower floor slippery and do you need support? NoDo you need some support when you get in and out of the tub or from the toilet? NoDo you have any small rugs or runners that slide or bunch up when you push them with your foot? NoAre there papers, books, towels, shoes, magazines, boxes, blankets, or other objects on the floor? No The patient does not have a history of falls. Oral Health: every 6 monthsEye Health: every yearMotor Vehicle: Yes Do you wear a seatbelt when in a car? Yes Screening Tools:Were there any ADL or IADL deficiencies not linked to physical limitations? NoDuring the past 12 months, have you experienced confusion or memory loss that is happening more often or is getting worse? No LIZZ LOPEZ MD [facility] [address], [address], [facility] [place] 12/10/2023 10:45:25 5 text/html Hypertension [facility]ep[facility] lifestyle, patient reportsnot exercising regularlybut reportslimiting/avoiding salt. For associated symptoms, patient reportsno dizziness,no lightheadedness,no chest pain,no shortness of breath,no palpitations,no edema, andno calf pain with exertion. For medications, patient reportstaking medications as directedandno side effects from medication. HyperlipidemiaReported by PatientHPIFor type of hyperlipidemia, patient reportshypercholesterolem ia. For duration, patient reportschronic. For control, patient reportsnot at goal. For compliance, patient reportsdoes not exercisebut reportscompliant with diet. For risk factors, patient reportsdiabetesandhyperte nsion. Diabetes F/UReported by PatientHPIFor context, patient reportsseeing eye doctor regularlyandchecking feet regularly. For associated symptoms, patient reportsno weight gain,no weight loss,no dizziness,no sweats,no headaches,no confusion,no increased thirst,no increased appetite,no increased urination,no blurred vision,no numbness of feet, andno calluses on feet. Carlos Alberto Bey is a 68 year old M who presented to the clinic for his 6 month follow-up. Patient is very frustrated. Has been having trouble getting diabetic inserts. Was following with podiatry however several events occurred and he is now looking for new provider. LIZZ LOPEZ MD [address] [address], [place], [address], [facility] 06/08/2024 10:27:17 5 text/html Hypertension F/UReported [facility] lifestyle, patient reportsnot exercising regularlybut reportslimiting/avoiding salt. For associated symptoms, patient reportsno dizziness,no lightheadedness,no chest pain,no shortness of breath,no palpitations,no edema, andno calf pain with exertion. For medications, patient reportstaking medications as directedandno side effects from medication. HyperlipidemiaReported by PatientIFor type of hyperlipidemia, patient reportshypercholesterolem ia. For duration, patient reportschronic. For control, patient reportsnot at goal. For compliance, patient reportsdoes not exercisebut reportscompliant with diet. For risk factors, patient reportsdiabetesandhyperte nsion. Diabetes F/UReported by PatientHPIFor context, patient reportsseeing eye doctor regularlyandchecking feet regularly. For associated symptoms, patient reportsno weight gain,no weight loss,no dizziness,no sweats,no headaches,no confusion,no increased thirst,no increased appetite,no increased urination,no blurred vision,no numbness of feet, andno calluses on feet. Carlos Alberto Bey is a 68 year old M who presented to the clinic for his 6 month follow-up. Pt mentions that he is doing much better today. Anxiety has improved. Was seen by podiatry who ordered insoles. LIZZ LOPEZ MD [address], [address], [facility] 09/08/2024 10:19:53 5 text/html Medicare Annual Wellness VisitReported by PatientSocial/Behavioral HistoryFor physical activity, patient reportsdoes not exercise on a regular basis,decreased physical activity, andpoor physical condition(walking, pt does have several msk complaints has chronic neck and back problems). For diet and nutrition, patient reportshealthy diet(mmv). For fracture risk, patient reportsno history of fractures.Mental Status:For depression risk, patient reportsnever feels sad, empty, or tearfulandno loss of interest in activities. For orientation, patient reportsno disorientation to time,no disorientation to date, andno disorientation to place. For concentration and memory, patient reportsno decreased concentrating ability,no memory lapses or loss, anddoes not forget words. For speech/motor difficulties, patient reportsno speech difficulties.Functional AbilityFor hearing, patient reportsno loss of hearing. For vision, patient reportsno vision problems. For activities of daily living, patient reportsable to bathe with limited or no assistance,able to contol urination and bowels,able to dress with limited or no assistance,able to feed self with limited or no assistance,able to get out of chair or bed with limited or no assistance,able to groom with limited or no assistance, andable to toilet with limited or no assistance. For instrumental activities of daily living, patient reportsable to do house work with limited or no assistance,able to grocery shop with limited or no assistance,able to manage medications with limited or no assistance,able to manage money with limited or no assistance,able to prepare meals with limited or no assistance, andable to use the phone with limited or no assistance. For falls risk assessment, patient reportsno frequent falls while walkingandno fall in the past year. For home safety, patient reportsno unsafe stairs,no unsafe gas appliances, andno vision or hearing loss while driving. Carlos Alberto Bey is a 69 year old M who presents to the clinic for his annual Medicare visit. Visit Type: Annual How would you rate your health? Fair Have you been discharged from the hospital recently? NoHave you been to the emergency room or urgent care recently? NoDo you have any significant previous hospital stays, injuries, or treatment? No Home Safety:Is the tub or shower floor slippery and do you need support? NoDo you need some support when you get in and out of the tub or from the toilet? NoDo you have any small rugs or runners that slide or bunch up when you push them with your foot? NoAre there papers, books, towels, shoes, magazines, boxes, blankets, or other objects on the floor? No The patient does have a history of falls. Oral Health: every 6 monthsEye Health: every yearMotor Vehicle: Yes Do you wear a seatbelt when in a car? Yes Screening Tools:Were there any ADL or IADL deficiencies not linked to physical limitations? NoDuring the past 12 months, have you experienced confusion or memory loss that is happening more often or is getting worse? No LIZZ LOPEZ MD [address] [address], [place], [address], [facility] 01/12/2025 12:48:19
--- OUTSIDE RECORDS SUMMARY | 2025-02-26 12:30 | XMS_ITS | Clinical Summary ---
Author Organization [facility] Address [address] [place] [address] Phone Care Team Providers Care Concert Manager Name Role Phone Lizz Lopez MD Primary Care Provider Allergies No known active allergies Social History Tobacco Use Types Packs/Day Years Used Date Smoking Tobacco: Never Assessed Sex and Gender Information Value Date Recorded Sex Assigned at Not on file Legal Sex Male 12:52 AM EST Gender Identity Not on file Sexual Orientation Not on file Last Filed Vital Signs Vital Sign Reading Time Taken Comments Blood Pressure - - Pulse - - Temperature - - Respiratory Rate - - Oxygen Saturation - - Inhaled Oxygen Concentration - - Weight 85.3 kg (188 lb) 07/27/2024 12:58 PM EDT Height 170.2 cm (5' 7 ) 07/27/2024 12:58 PM EDT Body Mass Index 29.44 07/27/2024 12:58 PM EDT Plan of Treatment Upcoming Encounters Date Type Department Care Team (Late st Contact Info) Description 04/28/2025 10:00 AM EST Office Visit Orthopedic Surgery - [place] [address] [address] Nathaniel Rhodes, DPM [address] [address] Health Maintenance Due Date Last Done Comments Diabetes: Annual GFR (Glomerular Filtration Rate) 1955 Diabetes: Annual Foot Exam 11/17/1965 Diabetes: Annual Retina Eye Exam 11/17/1965 Zoster Vaccines (2 of 3) 12/09/2018 10/14/2018, 05/04/2018 Abdominal Aortic Aneurysm (AAA) Screen 03/11/2022 Cholesterol Screening (Lipid Panel) 03/11/2022 Falls Risk Assessment 03/11/2022 Hepatitis C Screening 03/11/2022 Medicare Annual Wellness Visit 03/11/2022 Social Influencers of Health Screening 03/11/2022 Depression Screening 04/08/2024 Diabetes: Annual Urine Albumin-Creatinine Ratio (uACR) 06/08/2024 Diabetes: Blood Sugar Control Test (HGBA1C) 06/08/2024 Hypertension/CHF/CAD Annual BMP Blood Test 06/08/2024 Colorectal Cancer Screening: Colonoscopy 06/21/2024 06/21/2014, 08/01/2011, 03/19/2007 COVID-19 Vaccine ( season) 2024 12/12/2023, 12/24/2022, 08/10/2021, Additional history exists Influenza Vaccine (#1) 2024 , 12/24/2022, 12/12/2021, Additional history exists DTaP,Tdap,and Td Vaccines (3 - Td or Tdap) 12/20/2027 12/19/2017, 03/14/2010 Hepatitis A Vaccines Completed 07/12/2021, 07/12/2021, 02/09/2021, Additional history exists Hepatitis B Vaccines Completed 07/12/2021, 07/12/2021, 02/09/2021, Additional history exists Pneumococcal Vaccine: 50+ Years Completed 12/07/2022, 03/14/2010 RSV Immunization Adult Patients Completed 03/23/2023 HIB Vaccines Aged Out No longer eligi ble based on patient's age to complete this topic HPV Vaccines Aged Out No longer eligi ble based on patient's age to complete this topic IPV Vaccines Aged Out No longer eligi ble based on patient's age to complete this topic MMR Vaccines Aged Out No longer eligi ble based on patient's age to complete this topic Meningococcal ACWY Vaccine Aged Out N o longer eligible based on patient's age to complete this topic Meningococcal B Vaccine Aged Out No l onger eligible based on patient's age to complete this topic RSV Immunization Patients Under 20 months Aged Out No longer eligible based on patient's age to complete this topic Varicella Vaccines Aged Out No longer eligible based on patient's age to complete this topic Procedures Procedure Name Priority Date/Time Associated Diagnosis Comments EXTERNAL COLONOSCOPY REPORT Routine 06/21/2014 10:57 AM EDT from Last 3 Months or Most Recently Relevant to Health Maintenance Results * External Colonoscopy Report (06/21/2014 10:57 AM EDT) Anatomical Region Laterality Modality Endoscopy us Historical Provider GI~PROCEDURE ORDERABLES F inal Result from Last 3 Months or Most Recently Relevant to Health Maintenance Insurance MEDICARE [facility] Care Teams Concert Manager Relationship Specialty Start Date End Date Lizz Lopez MD [address] [address] PCP - General Internal Medicine 06/15/24
== END 2025-02-26 12:24 | disposition home or self-care (01) ==
PROVIDERS: PCP Student in an Organized Health Care Education/Training Program; Visit Provider Physician Assistant
DX: M54.16 Radiculopathy, lumbar region (principal); M47.816 Spondylosis without myelopathy or radiculopathy, lumbar region
CPT/HCPCS: 99204

== ENCOUNTER → 2025-02-26 11:40 | Outpatient (BNVA) | payer MEDICARE, BC, SELFPAY | PROVIDERS: PCP Student in an Organized Health Care Education/Training Program; Visit Provider Physician Assistant | DX: M54.16 Radiculopathy, lumbar region (principal); M47.816 Spondylosis without myelopathy or radiculopathy, lumbar region | CPT/HCPCS: 99202 ==

== ENCOUNTER 2025-03-19 07:41 | Outpatient (AMB) | payer MEDICARE, BC, SELFPAY ==
--- OUTSIDE RECORDS SUMMARY | 2024-03-17 04:30 | XMS_ITS ---
[facility] Astrid craven [place] Address [address] [place] [address] Care Team Providers Care Principal Engineer Name Role Phone Lizz Lopez Primary Care Provider Unavail able Black, Gretel Unavailable [phone] Allergies No Known Allergies REASON FOR VISIT [...] Polyneuropathy due to type 2 diabetes mellitus (391628268) Type 2 diabetes mellitus with diabetic polyneuropathy (E11.42) Active confirmed Problem Essential hypertension (27347952) Essential hypertension (I10) Active confirmed Vital Signs Height 5ft 7in in 03/17/2024 Weight 185 lbs 03/17/2024 BMI 28.97 kg/m2 03/17/2024 Blood pressure systolic 127 mm Hg 03/17/20 24 Blood pressure diastolic 73 mm Hg 024 Heart Rate 83 /min 03/17/2024 Encounters Encounter Location Date Provider Diagnosis [facility] [address] 03/17/2024 Gretel Black Type 2 diabetes rosamaria [...] use of a nail nipper and/or dremel-type grinder set up operator external, to a more viable healthy nail plate [...] to maintain effectiveness in symptomatic relief - 67942 Keratoma Treatment Parring or Cutting o f Benign Hyperkeratotic Lesion(s) ... Progress Notes * Carlos Alberto CARVAJALDOB:[birth year] (69 yo M)Acc No.[id number]:03/17/2024 Progress Notes Patient: Carlos Alberto JANE Provider: Charan Valente DPM :1955 A ge:68 Y S ex:Male Date:03/17/2024 Address:[address] [place], [place] [id number] Pcp:Lizz Lopez Subjective: * Chief Complaints: * 1 . Pcp- 01/29. 2. At Risk Footcare. * HPI: A t Risk footcare: Pt States Last PCP Visit: D ate: 1 * ROS: G eneral/Constitutional: Nausea d [...] denies. D ental implants a dmits. H gordon of hearing d enies, denies. D ifficulty [...] C ardiovascular: Pacemaker d enies, denies. M MANAGER TECHNOLOGY d enies, denies.?WPW d enies, denies. C [...] historian for office visit today. ORIENTED: p erson, place, and time. Assessment: * Assessment: 1. [...] use of a nail nipper and/or dremel-type grinder set up operator external, to a more viable healthy nail plate [...] to maintain effectiveness in symptomatic relief - 78163. K eratoma Treatment: Parring or Cutting of [...] Valente DPM Date: 05/18/2023 Generated for John feldman/Young/eTransmitting on: 05/20/2024 07:56 AM EST History and Physical Notes * HPI (History of Present Illness) Category Sub-Category Detail Notes Category Not es At Risk footcare Pt States Last PCP Visit: Date:: 01/30/20 Examination Category Sub-Category Detail Notes Category Not [...]
--- NOTE | 2025-03-19 07:54 | A.PHYSOV ---
Vital Signs 03/19/25 07:56 Height 5 ft 7.5 in Weight 190 lb BMI 29.3 BP 156/90 H Pulse 113 H Temp 98.1 F Intake Visit Reasons: Caudal Epidural Injection Intake Note: Patient is a 69 year old male in office today for a caudal epidural injection. 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: No Allergies No Known Allergies Allergy (Verified 03/19/25 07:54) [facility] Surgical History History of eye surgery (Unknown) Hx of appendectomy (Unknown) Social History (Updated 03/19/25 @ 07:55 by Natacha Flowers MA) Alcohol intake: current Alcohol intake frequency: does not drink Patient Tobacco Use Status: Former Tobacco user Tobacco use type: Cigarette Substance Use Type: Marijuana Current occupational status: retired Physical Exam Vital Signs: Last Vital Signs Temp 98.1 F 03/19/25 07:56 Pulse 113 H 03/19/25 07:56 BP 156/90 H 03/19/25 07:56 BMI result Body Mass Index 29.3 Office Procedures AMB Caudal Epidural Injection AMB Caudal Epidural Injection Procedure Details: Procedure performed: Caudal Epidual Injection under fluoroscopic guidance Pre-op diagnosis: Lumbar radiculitis Postop diagnosis: The same Anesthesia: Local After informed consent was obtained patient was brought into the procedure room and placed in the prone position on the procedure table. Skin over sacral area was prepped and draped in usual sterile manner. Sacral hiatus was visualized utilizing fluoroscopy. 3.5 in 22 gauge spinal needle was introduced percutaneously and advanced into the spinal canal via sacral hiatus. Needle placement was verified utilizing 3 cc of Omnipaque contrast solution. Total volume of 10 cc containing 3 cc of 1% lidocaine, 40 mg of triamcinolone, normal saline solution was injected after negative aspiration for blood and cerebrospinal fluid. Radiation exposure was recorded and documented in the chart. Caudal Epidural Injection - 45156 use with FL Gd order: Caudal Epidural Injection - [id number] All charges added?: Procedure code (CPT) selection complete Office Meds Kenalog 40 mg/mL suspension for injection Performing Provider: Eduardo Jessica DO Performing Location: [facility] [place] [facility] Administered by: Eduardo Jessica DO on 03/19/25 08:26 Dose Route Admin Location Dispensed Lot Number Expiration Date [facility] Event Staff Member 40 mg epidural 1 mL [id number] [employer] Total Dispensed Waste 1 mL 0 % lidocaine (PF) 10 mg/mL (1 %) injection solution Performing Provider: Eduardo Jessica DO Per[facility] Administered by: Eduardo Jessica DO on 03/19/25 08:26 Dose Route Admin Location Dispensed Lot Number Expiration Date [facility] Event Staff Member 100 mg epidural 10 mL [id number] [facility] Total Dispensed Waste 10 mL 0 % Omnipaque 300 300 mg iodine/mL intravenous solution Performing Provider: Eduardo Jessica DO Performing Location[facility] Administered by: Eduardo Jessica DO on 03/19/25 08:26 Dose Route Admin Location Dispensed Lot Number Expiration Date [facility] Event Staff Member 3 mL epidural 10 mL [id number] [employer] Total Dispensed Waste 10 mL 70 % Assessment & Plan Assessment & Plan (1) Lumbar radiculopathy: Code(s): M54.16 - Radiculopathy, lumbar region Category: Medical Plan: Procedure Plan Procedure Orders: Orders FL Gd Caudal Epidural Inj Today M54.16 - Radiculopathy, lumbar region AMB Caudal Epidural Injection Today M54.16 - Radiculopathy, lumbar region Coding Level of Care Code Procedure Only Diagnoses Lumbar radiculopathy M54.16 CPT Codes AMB Caudal Epidural Injection - Caudal Epidural Injection: Caudal Epidural Injection - 43692 ([id number])
[2025-03-19 07:56] VITALS: BP 156/90; PULSE 113; TEMP 36.7; BMI 29.3
--- OUTSIDE RECORDS SUMMARY | 2025-03-19 07:56 | XMS_ITS | Patient Health Record ---
Author Organization [facility] Astr[facility] [place] Address [address] [facility] [place] [address] Care Team Providers Care Police Radio Dispatcher Name Role Phone Lizz Lopez Primary Care Provider Unavail able Black, Gretel Unavailable [phone] Allergies No Known Allergies Reason For Referral [...] Polyneuropathy due to type 2 diabetes mellitus (313945806) Type 2 diabetes mellitus with diabetic polyneuropathy (E11.42) Active confirmed Problem Essential hypertension (27224556) Essential hypertension (I10) Active confirmed Plan Of Treatment No Information Insurance Providers Payer Name Payer Address Payer Phone Subscriber Number Group Number Insured Name Patient Relationship to Insured Coverage Start Date Coverage End Date Medicare National [employer] [address] [place] [address] [id number] Carlos Alberto Bey Self - patient is the insured [facility] [address] [place] [address] [id number] Carlos Alberto Bey Self - patient is the insured Medical (General) History Medical History History ICD Code Anxiety Back,Hip,and Knee pain CAD (Cholesterol) covid-19 Crohns disease Diabetes mellitus High Blood Pressure Numbness Reflux ( GERD) Stomach ulcer Measles Mumps Chicken pox DVT ankle- to butt Surgical History Surgery Date(Month/Year) appendectomy colonoscopy
--- OUTSIDE RECORDS SUMMARY | 2025-03-19 07:56 | XMS_ITS | Clinical Summary ---
Author Organization [facility] Address [address] [place] [address] Phone Care Team Providers Care Bottle Washing Machine Operator Name Role Phone Lizz Lopez MD Primary [...] AM EST Office Visit Orthopedic Surgery - [place] [address] [address] Nathaniel Rhodes, DPM [address] [address] Health Maintenance Due Date Last [...] Recently Relevant to Health Maintenance Insurance MEDICARE [facility] Care Teams Bottle Washing Machine Operator Relationship Specialty Start Date End Date Lizz Lopez MD [address] [address] PCP - General Internal Medicine 06/15/24
--- OUTSIDE RECORDS SUMMARY | 2025-03-19 07:56 | XMS_ITS | Encounter Summary ---
Author Organization [facility] Address [address] [place] [address] Care Team Providers Care Sheet Music Salesperson Name Role Phone Lizz Lopez MD Primary Care Provider [phone] Encounter Details Date Type Department Care Team (Late st Contact Info) Description 06/15/2024 Lab Requisition [facility] - Main Lab [address] [facility] [place] [phone] Luh Fitzpatrick MD [address] [place] [address] Benign prostatic hyperplasia with lower urinary tract [...] AM EST Office Visit Orthopedic Surgery - [place] [address] [address] Nathaniel Rhodes, DPM [address] [address] documented as of this encounter Procedures Procedure Name Priority Date/Time Associated Diagnosis Comments PROSTATE SPECIFIC ANTIGEN DIAGNOSTIC Routine 06/15/2024 11:00 AM EDT Benign prostatic hyperplasia with lower urinary tract symptoms documented in this encounter Results * Prostate specific antigen diagnostic (06/15/2024 11:00 AM EDT) PSA 1.09 0.00 - 4.00 ng/mL LAB CHEMISTRY METHOD 06/15/2024 2:32 PM EDT [facility] Blood Venous blood specimen / Unknown 06/15/2024 11:00 AM EDT 06/15/2024 1:34 PM EDT Narrative [facility] - 06/15/2024 2:32 PM EDT The Siemens Advia getbetter!aur Chemiluminescent Immunoassay is used. Results obtained with different assay methods or kits cannot be used interchangeably. Results cannot be interpreted as absolute evidence of the presence or absence of malignant disease. us Luh Fitzpatrick MD LAB BLOOD ORDERABLES [facility] al Result [facility] [address] [place] [address], documented in this encounter Visit Diagnoses Diagnosis Benign prostatic hyperplasia with lower urinary tract symptoms documented in this encounter Care Teams Sheet Music Salesperson Relationship Specialty Start Date End Date Lizz Lopez MD [address] [address] PCP - General Internal Medicine 06/15/24 documented as of this encounter
--- OUTSIDE RECORDS SUMMARY | 2025-03-19 07:56 | XMS_ITS | Continuity of Care Document ---
Author Organization [facility], Main Office Address [address] [place] [address] Care Team Providers Care Line Welder Name Role Phone BARB SHEARER Referring Provider [facility] Data Specialist CHIKA ARREDONDO Job Training Supervisor [facility] Sports Medic ine [facility] Breast Surgeon BRIANNE GRAY DPM Primary Care Sales Representative [phone] BARB COLE Urologist [facility] Dental Technician REGGIE TAVERAS Refrigerator Repair Technician LIZZ LOPEZ Primary Care Provider EMILY SOTO Director Product Management Assessment No assessment recorded. Plan of Treatment Reminders Order Date Submit Date Provider Last Modified By Organization Details Last Modified Time Details Appointments FOLLOW UP 2025 08:45A M LIZZ LOPEZ MD Not available Not available Not available Lab CBC w/ auto diff 2024 025 [facility], [address] [place], [address], 01/15/2025 06:08:11 TSH, ultra-sen sitive, serum 2024 025 [facility], [address], [place], [address], 01/15/2025 06:08:13 BMP, serum or plasma 2024 [facility], [address] [place], [address], 01/15/2025 06:08:12 hepatic function panel, serum 2024 025 [facility], [address] [place] [address], [address], 01/15/2025 16:06:51 lipid panel, serum 2024 [facility], [address], [place], [address], 01/15/2025 06:08:12 HbA1c (hemoglob in A1c), blood 2024 [facility], [address], [address], 01/15/2025 16:06:52 albumin/c reatinine , ratio, urine 2024 [place] [facility], [address], [address], 01/12/2025 11:28:01 Referral mental health counselor referral 2024 [email or web address] Not available 01/13/2025 08:06:22 Procedures None recorded. Surgeries None recorded. Imaging MRI, lumbar spine, w/o contrast - worsening pain with bilateral pain radiating down the legs 2024 [facility] ([facility]), [address], [place], [address], 01/19/2025 17:32:25 Medication Orders gabapenti n 600 mg tablet 2024 [place] [id number], [address] [place] [address], [id number], 01/12/2025 11:28:00 Patient TargetsNo targets recorded. Patient Instructions Encounter Date Encounter Id Patient Instructions Last Modified By Organization Details Last Modified Time 01/12/2025 [id number] sleep apnea: car e instructions Not available [...] Not available 01/12/2025 11:27:45 Reason for Referral Mental Health Counselor Refe rral for Mood disorder Referring Physician: Lizz Lopez, Family Medicine, Encounter Date: 01/12/2025 Results Created Date Observation Date Name Description Value Unit Range Abnormal Flag Note LastModifiedBy Organization Detail LastModifiedTime 01/15/2001/14/2025 CBC WITH DIFFE RENTI AL/PL ATELE T WBC 6.9 x10e3 /uL 3.4-10 .8 normal Not Available [facility] ([facility]) [address] [place], [address], 01/15/2025 06:08:11 01/15/2001/14/2025 CBC WITH DIFFE RENTI AL/PL ATELE T RBC 4.87 x10e6 /uL 4.14-5 .80 normal Not Available [facility] ([facility]) [address] [place], [address], 01/15/2025 06:08:11 01/15/20 25 01/14/2025 CBC WITH DIFFE RENTI AL/PL ATELE T hemoglobin 15.3 g/dL 13.0-1 7.7 normal Not Available [facility] ([facility]) [address] [facility], [place], [address], 01/15/2025 06:08:11 01/15/20 25 01/14/2025 CBC WITH DIFFE RENTI AL/PL ATELE T hematocrit 45.3 % 37.5-5 1.0 normal Not Available [facility] ([facility]) [address] [facility], [place], [address], 01/15/2025 06:08:11 01/15/20 25 01/14/2025 CBC WITH DIFFE RENTI AL/PL ATELE T MCV 93 fL 79-97 normal Not Available [facility] ([facility]) [address] [facility], [place], [address], 01/15/2025 06:08:11 01/15/20 25 01/14/2025 CBC WITH DIFFE RENTI AL/PL ATELE T MCH 31.4 pg 26.6-3 3.0 normal Not Available [facility] ([facility]) [address] [place], [address], 01/15/2025 06:08:11 01/15/20 25 01/14/2025 CBC WITH DIFFE RENTI AL/PL ATELE T MCHC 33.8 g/dL 31.5-3 5.7 normal Not Available [facility] ([facility]) [address] [facility], [place], [address], 01/15/2025 06:08:11 01/15/20 25 01/14/2025 CBC WITH DIFFE RENTI AL/PL ATELE T RDW 13.3 % 11.6-1 5.4 Not Available [facility] ([facility]) [address] [place], [address], 01/15/2025 06:08:11 01/15/20 25 01/14/2025 CBC WITH DIFFE RENTI AL/PL ATELE T platelets 154 x10e3 /uL 150-45 0 normal Not Available [facility] ([facility]) [address] [facility], [place], [address], 01/15/2025 06:08:11 01/15/20 25 01/14/2025 CBC WITH DIFFE RENTI AL/PL ATELE T neutrophils 66 % not estab. normal Not Available [facility] ([facility]) [address] [facility], [place], [address], 01/15/2025 06:08:11 01/15/20 25 01/14/2025 CBC WITH DIFFE RENTI AL/PL ATELE T lymphs 23 % not estab. normal Not Available [facility] ([facility]) [address] [facility], [place], [address], 01/15/2025 06:08:11 01/15/20 25 01/14/2025 CBC WITH DIFFE RENTI AL/PL ATELE T monocytes 7 % not estab. normal Not Available [facility] ([facility]) [address] [facility], [place], [address], 01/15/2025 06:08:11 01/15/20 25 01/14/2025 CBC WITH DIFFE RENTI AL/PL ATELE T eos 3 % not estab. normal Not Available [facility] ([facility]) [address] [facility], [place], [address], 01/15/2025 06:08:11 01/15/20 25 01/14/2025 CBC WITH DIFFE RENTI AL/PL ATELE T basos 1 % not estab. normal Not Available [facility] ([facility]) [address] [facility], [place], [address], 01/15/2025 06:08:11 01/15/20 25 01/14/2025 CBC WITH DIFFE RENTI AL/PL ATELE T immature cells CLINICAL DATA RESEARCH Not Available [facility] ([facility]) [address] [facility], [place], [address], 01/15/2025 06:08:11 01/15/20 25 01/14/2025 CBC WITH DIFFE RENTI AL/PL ATELE T neutrophils (absolute) 4.6 x10e3 /uL 1.4-7. 0 normal Not Available [facility] ([facility]) [address] [facility], [place], [address], 01/15/2025 06:08:11 01/15/20 25 01/14/2025 CBC WITH DIFFE RENTI AL/PL ATELE T lymphs (absolute) 1.6 x10e3 /uL 0.7-3. 1 normal Not Available [facility] ([facility]) [address] [place], [address], 01/15/2025 06:08:11 01/15/20 25 01/14/2025 CBC WITH DIFFE RENTI AL/PL ATELE T monocytes(ab solute) 0.5 x10e3 /uL 0.1-0. 9 normal Not Available [facility] ([facility]) [address] [facility], [place], [address], 01/15/2025 06:08:11 01/15/20 25 01/14/2025 CBC WITH DIFFE RENTI AL/PL ATELE T eos (absolute) 0.2 x10e3 /uL 0.0-0. 4 normal Not Available [facility] ([facility]) [address] [place], [address], 01/15/2025 06:08:11 01/15/20 25 01/14/2025 CBC WITH DIFFE RENTI AL/PL ATELE T baso (absolute) 0.0 x10e3 /uL 0.0-0. 2 normal Not Available [facility] ([facility]) [address] [place], [address], 01/15/2025 06:08:11 01/15/20 25 01/14/2025 CBC WITH DIFFE RENTI AL/PL ATELE T immature granulocytes 0 % not estab. Not Available [facility] ([facility]) [address] [facility], [place], [address], 01/15/2025 06:08:11 01/15/2001/14/2025 CBC WITH DIFFE RENTI AL/PL ATELE T immature grans (abs) 0.0 x10e3 /uL 0.0-0. 1 Not Available [facility] ([facility]) [address] [facility], [place], [address], 01/15/2025 06:08:11 01/15/20 25 01/14/2025 CBC WITH DIFFE RENTI AL/PL ATELE T NRBC CLINICAL DATA RESEARCH Not Available [facility] ([facility]) [address] [facility], [place], [address], 01/15/2025 06:08:11 01/15/20 25 01/14/2025 CBC WITH DIFFE RENTI AL/PL ATELE T hematology comments: CLINICAL DATA RESEARCH Not Available [facility] ([facility]) [address] [facility], [place], [address], 01/15/2025 06:08:11 01/15/2001/15/2025 BASIC METAB OLIC PANEL (8) glucose 126 mg/dL 70-99 above high normal Not Available [facility] ([facility]) [address] [facility], [place], [address], 01/15/2025 06:08:12 01/15/20 25 01/15/2025 BASIC METAB OLIC PANEL (8) BUN 12 mg/dL 8-27 normal Not Available [facility] ([facility]) [address] [facility] [place], [address], 01/15/2025 06:08:12 01/15/20 25 01/15/2025 BASIC METAB OLIC PANEL (8) creatinine 0.97 mg/dL 0.76-1 .27 normal Not Available [facility] ([facility]) [address] [place], [address], 01/15/2025 06:08:12 01/15/20 25 01/15/2025 BASIC METAB OLIC PANEL (8) eGFR 85 mL/mi n/1.7 3 >59 normal Not Available [facility] ([facility]) [address] [facility], [place], [address], 01/15/2025 06:08:12 01/15/20 25 01/15/2025 BASIC METAB OLIC PANEL (8) BUN/creatini ne ratio 12 10-24 normal Not Available [facility] ([facility]) [address] [facility] [place], [address], 01/15/2025 06:08:12 01/15/2001/15/2025 BASIC METAB OLIC PANEL (8) sodium 142 mmol/ L 134-14 4 normal Not Available [facility] ([facility]) [address] [place], [address], 01/15/2025 06:08:12 01/15/20 25 01/15/2025 BASIC METAB OLIC PANEL (8) potassium 4.2 mmol/ L 3.5-5. 2 normal Not Available [facility] ([facility]) [address] [place], [address], 01/15/2025 06:08:12 01/15/20 25 01/15/2025 BASIC METAB OLIC PANEL (8) chloride 103 mmol/ L 96-106 normal Not Available [facility] ([facility]) [address] [place], [address], 01/15/2025 06:08:12 01/15/20 25 01/15/2025 BASIC METAB OLIC PANEL (8) carbon dioxide, total 23 mmol/ L 20-29 normal Not Available [facility] ([facility]) [address] [place], [address], 01/15/2025 06:08:12 01/15/20 25 01/15/2025 BASIC METAB OLIC PANEL (8) calcium 9.0 mg/dL 8.6-10 .2 normal Not Available [facility] ([facility]) [address] [place], [address], 01/15/2025 06:08:12 01/15/20 25 01/15/2025 LIPID PANEL cholesterol, total 155 mg/dL 100-19 9 normal Not Available [facility] ([facility]) [address] [place], [address], 01/15/2025 06:08:12 01/15/20 25 01/15/2025 LIPID PANEL triglyceride s 136 mg/dL 0-149 normal Not Available [facility] ([facility]) [address] [place], [address], 01/15/2025 06:08:12 01/15/20 25 01/15/2025 LIPID PANEL HDL cholesterol 36 mg/dL >39 below low normal Not Available [facility] ([facility]) [address] [place], [address], 01/15/2025 06:08:12 01/15/20 25 01/15/2025 LIPID PANEL VLDL cholesterol jones 24 mg/dL 5-40 Not Available [facility] ([facility]) [address] [place], [address], 01/15/2025 06:08:12 01/15/20 25 01/15/2025 LIPID PANEL LDL chol calc ([facility]) 95 mg/dL 0-99 Not Available [facility] ([facility]) [address] [place], [address], 01/15/2025 06:08:12 01/15/2001/15/2025 LIPID PANEL LDL calc comment: CLINICAL DATA RESEARCH Not Available [facility] ([facility]) [address] [place], [address], 01/15/2025 06:08:12 01/15/20 25 01/15/2025 TSH RFX ON ABNOR MAL TO FREE T4 TSH 4.160 uIU/m L 0.450- 4.500 normal Not Available [facility] ([facility]) [address] [place], [address], 01/15/2025 06:08:13 01/15/20 25 01/14/2025 HEPAT IC FUNCT ION PANEL (7) protein, total 6.5 g/dL 6.0-8. 5 normal Not Available [facility] ([facility]) [address] [place], [address], 01/15/2025 16:06:51 01/15/20 25 01/14/2025 HEPAT IC FUNCT ION PANEL (7) albumin 4.2 g/dL 3.9-4. 9 normal Not Available [facility] ([facility]) [address] [place], [address], 01/15/2025 16:06:51 01/15/20 25 01/14/2025 HEPAT IC FUNCT ION PANEL (7) bilirubin, total 0.7 mg/dL 0.0-1. 2 normal Not Available [facility] ([facility]) [address] [place], [address], 01/15/2025 16:06:51 01/15/20 25 01/14/2025 HEPAT IC FUNCT ION PANEL (7) alkaline phosphatase 71 IU/L 47-123 normal Not Available [facility] ([facility]) [address] [place], [address], 01/15/2025 16:06:51 01/15/20 25 01/14/2025 HEPAT IC FUNCT ION PANEL (7) AST (SGOT) 22 IU/L 0-40 normal Not Available [facility] ([facility]) [address] [place], [address], 01/15/2025 16:06:51 01/15/20 25 01/14/2025 HEPAT IC FUNCT ION PANEL (7) ALT (SGPT) 23 IU/L 0-44 normal Not Available [facility] ([facility]) [address] [facility], [place], [address], 01/15/2025 16:06:51 01/15/20 25 01/15/2025 HEPAT IC FUNCT ION PANEL (7) bilirubin, direct 0.18 mg/dL 0.00-0 .40 normal Not Available [facility] ([facility]) [address] [facility], [place], [address], 01/15/2025 16:06:51 01/15/2001/14/2025 HEMOG LOBIN A1C hemoglobin A1C 6.4 % 4.8-5. 6 above high normal Predi abete s: 5.7 - 6.4 Diabe margarito: >6.4 Glyce isaiah contr ol for adult s with diabe margarito: <7.0 Not Available [facility] ([facility]) [address] [facility], [place], [address], 01/15/2025 16:06:52 01/20/2001/18/2025 MRI, lumba r spine , w/o contr ast No observ ation record ed. [facility] [address], [address], 01/24/2025 14:26:02 Result Notes None recorded. Problems Name Problem SNOMED Code Status Onset Date Resolution Date Notes Provider Name and Address Organization Details Recorded Time Collagen ous colitis 66450831 Active 2017 Clary solorzano [facility] [place] 8 14:59:41 Pain in spine 39585939 Completed 201701/31/[address] [facility] 8 11:40:37 Peripher al neuritis 362137238 Active 2017 bilchiaraa ronny lower extremit y LIZZ LOPEZ MD [address] [facility] [address] [facility], [place], [address] [place] [address] [place] 3 14:09:30 Chronic neck pain 02712936626 07 Active 2017 Yeny Mckay-Sunshine ilorenzo null, [facility] 8 11:40:33 Hypercho lesterol emia 59946382 Active 2017 Yeny Bashir-D ilorenzo null, [facility] 8 11:40:51 Benign prostati c hyperpla lulu 514668640 Active 2017 Yeny Mckay-D ilorenzo null, [facility] 8 11:41:01 Well controll ed type 2 diabetes mellitus 539640264 Active 2017 Yeny Bashir-Sunshine sidhuorenani null, [facility] 8 11:42:50 Closed fracture of left foot 26366364107 873914 Completed 201812/06/2022 LIZZ LOPZE MD [address], [place], [address], [facility] 3 06:46:22 Deep venous thrombos is 206264290 Active 2020 Debby Arias MA null, [facility] 1 10:58:34 Anxiety 29941564 Active 2020 Debby Arias MA null, [facility] 1 10:38:51 [facility] hyperten mariia 49268408 Active 2021 Yeny Bashir-Sunshine sidhuorenani null, [facility] 2 15:23:09 Steatoti c liver disease 848766968 Active 2021 Yeny Bashir-Sunshine sidhuorenani null, [facility] 2 12:40:46 Obstruct simran sleep apnea syndrome 82175553 Active 2021 LIZZ LOPEZ MD [address], [place], [address], [facility] 2 08:42:44 Lumbar radiculo ronald 718977770 Active 2024 LIZZ LOPEZ MD [address] [facility] [address], [place], [address], [facility] 5 14:20:11 Problem Notes None recorded. Procedures Surgical History Date Name Laterality Status Provider Name and Address Organization Details Recorded Time 12/07/19 23 Advanced Care Planning completed LIZZ LOPEZ MD [address] [facility] [address], [place], [address], [facility] 12/06/2022 06:44:12 12/11/19 20 Eye Surgery completed Helen ferreira MA [facility] 12/06/2022 13:58:51 12/06/19 19 Mammogram both breasts completed Ebony Kendrick [facility] 12/24/2018 10:54:17 04/08/19 18 Colonoscopy completed Helen ferreira MA [facility] 12/06/2022 13:57:47 03/14/20 16 Flexible Sigmoidoscopy completed Dania Whittington [facility] 11/12/2018 15:16:19 Appendectomy completed Clary Mauro [facility] 09/30/2017 14:58:22 Imaging Results None recorded. Procedure Notes None recorded. Medical Equipment None Reported. Allergies No known drug allergies Medications Name Sig Start Date Stop Date Status Note LastModified by Organization Details LastModified Time amoxicill in 500 mg capsule 12/30 completed Not Available Not Available Not Available terazosin 5 mg capsule TAKE 1 CAPSULE BY MOUTH EVERY DAY DIRECTED 2024 active Not Available Not Available Not Avai lable clotrimaz ole 10 mg philipp 04/25 completed [...] TAKE 1 TABLET BY MOUTH TWICE DAILY 2024 active Not Available Not Available Not Avai lable marijuana (cannabis ) smoke daily 04/25 completed [...] Not Available Not Available Vitals Date Recorded Body height Body mass index (BMI) Body weight Oxygen saturation Heart rate Body temperature Systolic And Diastolic Provider Name and Address Organization Details Last Updated DateTime 5 171.45 cm 29.5 kg/m2 90947.2 4 g 98 % 89 /min 98.5 [degF] 123/73 mm[Hg] Debby Arias MA [facility] 5 10:57:17 Social History Question Answer Notes LastModified by Organizat ion Details LastModified Time Tobacco Smoking Status Former Smoker quit age 42 Clayr Mauro jeanine [facility] 09/30/2017 14:57:24 Do You Have An Advance [...] Did You Quit Smoking? 16+yearssinc elastcigaret te [email or web address] Information not available 06/15/2020 Do You Take [...] Or Greater Than 100 Degrees Fahrenheit? No [email or web address] Information not available 12/18/2019 Are You Or Anyone In Your Household A Health Care Provider Or Emergency Responder? No [email or web address] Information not available 12/18/2019 To The Best Of Your Knowledge Have You Been In Close Proximity To Any Individual Who Tested Positive For COVID-19? No [email or web address] Information not available 12/18/2019 *AWV ONLY* Are You Presently Prescribed Opioid Medication By PCP Or Specialist? If YES -Provider Assess The Benefit For Other, Non-opioid Pain Therapies Instead, Even If The Patient Does Not Have OUD But Is Possibly At Risk. No [email or web address] Information not available 01/12/2021 Have You Recently Traveled To A COVID-19 High Risk Area Or Gathering In The Last 10 Days? No [email or web address] Information not available 06/01/2020 What Was The Date Of Your Most Recent Tobacco Screening? 01/12/2025 [email or web address] Information not available 01/12/2025 How Many Children Do You Have? 2 Information not available 09/30/2017 What Is Your Current Pack Years? [email or web address] Information not available 10/26/2021 Do You Use Your Seat Belt Or Car Seat Routinely? Yes [email or web address] Information not available 01/12/2021 Are You Sexually Active? No (Ladonna) Information not available 12/06/2022 Do You Have Smoke And Carbon Monoxide Detectors In Your Home? Yes Information not available 01/12/2021 At What Age Did You Start Smoking Tobacco? 16 Information not available 09/30/2017 Are You Passively Exposed To Smoke? No [email or web address] Information not available 12/18/2019 How Much Tobacco Do You Smoke? No [email or web address] Information not available 01/12/2021 Do You Use [...] used smokeless tobacco? Never used smokeless tobacco [email or web address] Information not available 11/12/2018 Are you currently employed? No retired Information not available 09/30/2017 Are you able to walk independently without assistance or assistive devices? [email or web address] Information not available 10/26/2021 Are you able to care for yourself independently? 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 Information not available 12/06/2022 Do you [...] Diseases N Hyperthyroidism N Breast Cancer N Depression Y COPD N Lung Disease N Hypothyroidism N Defects or Inherited Disease N Anesthesia Complications N Headaches/Migraines N Varicose Veins N Anxiety Disorder Y Obesity N Vision or Eye Problems Y [...] 0 completed Dania solorzano [facility] [place] 08/19/2017 10:32:22 Tdap 0 completed Dania Whittington null, [facility] 08/19/2017 10:32:33 Tdap 8 completed Debby Arias MA null, [facility] 01/09/2018 14:29:12 Hep B, adult 8 completed Debby Arias MA null, [facility] 05/18/2021 11:22:36 Hep B, adult 8 completed Debby Arias MA null, [facility] 05/18/2021 11:22:36 Hep B, adult 8 completed Debby Arias MA null, [facility] 05/18/2021 11:22:36 zoster live 9 completed Helen Silverio MA null, [facility] 08/27/2018 11:28:46 zoster live 9 completed Princess Olivera LPN null, [facility] 10/14/2018 16:28:19 COVID-19, mRNA, LNP-S, PF, 30 mcg/0.3 mL dose 1 completed Debby Arias MA null, [facility] 05/18/2021 11:22:36 COVID-19, mRNA, LNP-S, PF, 30 mcg/0.3 mL dose 1 completed Debby Arias MA null, [facility] 05/18/2021 11:22:36 COVID-19, mRNA, LNP-S, PF, 30 mcg/0.3 mL dose 1 completed Debby Arias MA null, [facility] 05/18/2021 11:22:36 Influenza, adjuvanted, quadrivalent, PF 1 completed Debby Arias MA null, [facility] 05/18/2021 11:22:36 Hep A-Hep B 1 completed PAWAN Simon, [facility] 05/18/2021 11:22:36 Influenza, split virus, quadrivalent, PF 8 completed PAWAN Simon, [facility] 05/18/2021 11:22:36 Hep A-Hep B 1 completed PAWAN Simon, [facility] 05/18/2021 11:22:36 Influenza, split virus, quadrivalent, PF 9 completed PAWAN Simon, [facility] 05/18/2021 11:22:36 Influenza, split virus, quadrivalent, PF 0 completed PAWAN Simon, [facility] 05/18/2021 11:22:36 Hep A, adult 2 completed Not Available [facility] 12/06/2022 13:37:27 Hep B, adult 2 completed Not Available [facility] 12/06/2022 13:37:27 COVID-19, mRNA, LNP-S, PF, 30 mcg/0.3 mL dose, daphney-sucrose 2 completed PAWAN [place], [facility] 08/16/2021 15:14:54 [facility] 15:14:54 Influenza, high-dose, quadrivalent, PF 2 completed PAWAN Mcgrath, [facility] 02/01/2022 14:57:54 Pneumococcal conjugate PCV20, polysaccharide CDP708 conjugate, adjuvant, PF 3 completed PAWAN Simon, [facility] 06/10/2023 10:51:37 Influenza, high-dose, quadrivalent, PF 3 completed PAWAN Simon, [facility] 06/10/2023 10:51:37 RSV, recombinant, protein subunit RSVpreF, adjuvant reconstituted, 0.5 mL, PF 3 completed PAWAN Simon, [facility] 06/10/2023 10:51:38 COVID-19, mRNA, LNP-S, PF, daphney-sucrose, 30 mcg/0.3 mL 3 completed PAWAN Simon, [facility] 06/10/2023 10:51:38 COVID-19, mRNA, LNP-S, PF, daphney-sucrose, 30 mcg/0.3 mL 4 completed Not Available [facility] 01/12/2025 10:48:15 Influenza, adjuvanted, trivalent, PF 4 completed Not Available [facility] 01/12/2025 10:48:15 SARS-COV-2 (COVID-19) vaccine, UNSPECIFIED 5 completed Dania solorzano, [facility] 12/22/2024 16:36:19 Influenza, high-dose, trivalent, PF 5 completed Dania solorzano, [facility] 12/22/2024 16:36:46 Past Encounters Encounter ID Performer Location Encounter Start Date Encounter Closed Date Diagnosis/Indication Diagnosis SNOMED-CT Code Diagnosis ICD10 Code Diagnosis IMO Codes Diagnosis Note [id number] LIZZ LOPEZ MD Main Office [address] [facility] [address] [facility] [place] [id number] 01/12/2025 10:47:02 01/12/2025 11:35:13 Adult health examination [id number] Z00.00 Health Maintenanc e Deven) Patient was [...] or sooner if any acute complaints Anxiety 02192182 F41.9 - worsening, pt is worried about his mother who is not doing well- GEN-7 score of 8- c/w clonazepam 0.5mg QD- c/w desvenlafa xine succinate ER 125mg QD- counsellin g provided- RTC in 3 months Essential hypertension 71510261 I10 - at goal- BP today 123/73- [...] ve trouble with your vision. Hypercholesterolemia 136 32126 E78.00 - at goal- lipid panel 12/30: [...] Well contr olled type 2 diabetes mellitus 428050243 E11.9 - well controlled - last HbA1c [...] for cardiovasc ular disease. 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 - CHADVASC 2 score of 4, unprovoked will need for lifetime- c/w eliquis 2.5mg BID- counselled on bleeding risk- pt will no longer be following with hematology as MD is retiring Lipoma of back 602651102 D17.1 [id number] - pt wishes to have it removed- located near the left shoulder- pt referred to surgery -> declined at this time Fatigue 37136589 R53.83 Z00.00 Lumbar radiculopathy 128 079896 M54.16 49230 - worsening which is also affecting his mood- increased gabapentin dosage to 3600mg (1200mg TID)- ordered repeat MRI of the lumbar spine to check on severity- patient is not interested in surgical evaluation - if however interestin g in steroid injection, will refer after completion of MRI- patient does not want to be prescribed narcotic medication Mood disorder [id number] F 48 33243 - PHQ-9 score of 10- due to cheyenne's mother being very ill and patient's pain not well controlled - c/w desvenlafa xine succinate ER 125mg QD- will focus on trying to get patient's pain under better control Health Concerns Section Related Observation LastModified by Organization Detai ls LastModified Time None Recorded Concern Status LastModified by Organization Details LastModified Time None Recorded Payers Encounter Date Sequence Insurance Name Policy Number Policy [place] Covered Member ID As[place] Member ID Guarantor Name 01/12/2025 2 [place] [employer] [id number] Carlos Alberto Bey II [id number] Carlos Alberto Bey 01/12/2025 1 [place] [employer] Carlos Alberto Bey III [id number] Carlos Alberto Dey Brynlinh Notes Date Note Type Note Provider Name and Address Organization Details Recorded Time 01/12/2025 text/html Medicare Annual Wellness VisitReported by PatientSocial/Behavi oral HistoryFor physical activity, patient reportsdoes not exercise [...] words. For speech/motor difficulties, patient reportsno speech difficulties.Functio nal AbilityFor hearing, patient reportsno loss of hearing. [...] getting worse? No LIZZ LOPEZ MD [address] [address], [place], [address], [facility] [place] 01/12/2025 12:48:19
--- OUTSIDE RECORDS SUMMARY | 2025-03-19 07:57 | XMS_ITS | Data Portability ---
Author Organization [facility], Main Office Address [address] [place] [address] Care Team Providers Care Chrome Tanning Drum Operator Name Role Phone BARB SHEARER Referring Provider [facility] Trailer Steerer CHIKA ARREDONDO Supervisor Advice [facility] Sports Medic ine [facility] Breast Surgeon BRIANNE GRAY DPM Acoustical Engineer [phone] [facility] [facility] Percussion Teacher [phone] REGGIE TAVERAS Outside Cutter Hand LIZZ LOPEZ Primary Care Provider EMLIY SOTO Emergency Medicine Physician Assessment No assessment recorded. Plan of Treatment Reminders Order Date Submit Date Provider Last Modified By Organization Details Last Modified Time Details Appointments FOLLOW UP 2025 08:45A M LIZZ LOPEZ MD Not available Not available Not available Lab CBC w/ auto diff 2024 025 [facility], [address] [place], [address], 01/15/2025 06:08:11 TSH, ultra-sen sitive, serum 2024 025 [facility], [address] [place], [address], 01/15/2025 06:08:13 BMP, serum or plasma 2024 025 [facility], [address], [place], [address], 01/15/2025 06:08:12 hepatic function panel, serum 2024 025 [facility], [address], [place], [address], 01/15/2025 16:06:51 lipid panel, serum 2024 025 [facility], [address], [place], [address], 01/15/2025 06:08:12 HbA1c (hemoglob in A1c), blood 2024 025 [facility], [address], [place], [address], 01/15/2025 16:06:52 albumin/c reatinine , ratio, urine 2024 025 [facility], [address], [place], [address], 01/12/2025 11:28:01 AST/SGOT (aspartat e aminotran sferase), serum or plasma 2023 024 [facility] (Centralized Electronic Ordering - All Locations), Patient Can Go To The Location Of Their Choice, 12/20/2023 22:08:52 lipid panel, serum 2023 024 [facility], [address], [place], [address], 12/20/2023 22:08:50 ALT (alanine aminotran sferase), serum or plasma 2023 024 [facility] (Centralized Electronic Ordering - All Locations), Patient Can Go To The Location Of Their Choice, 12/20/2023 22:08:52 BMP, serum or plasma 2023 024 [facility], [address], [place], [address], 12/10/2023 10:36:15 CBC w/ auto diff 2023 024 [facility], [address], [place], [address], 12/20/2023 22:08:49 TSH, ultra-sen sitive, serum 2023 024 [facility], [address], [place], [address], 12/20/2023 22:08:51 BMP, serum or plasma 2023 024 [facility], [address], [place], [address], 12/20/2023 22:08:50 PSA, serum or plasma - Screening 2023 024 [facility], [address], [place], [address], 12/20/2023 22:08:51 HbA1c (hemoglob in A1c), blood 2023 024 [facility], [address], [place], [address], 06/11/2023 17:06:02 lipid panel, serum 2023 024 [facility], [address], [place], [address], 06/11/2023 21:28:18 ALT (alanine aminotran sferase), serum or plasma 2023 024 [facility], [address], [place], [address], 06/11/2023 21:28:17 Referral mental health counselor referral 2024 025 seem[facility] Not available 01/13/2025 08:06:22 general surgeon referral - lipoma on back has grown over the year, sent to surgery for removal 2024 025 seem[facility], [address] [place] [address] [address], [place], [address], 09/10/2024 15:09:06 podiatris t referral - pt is requestin g for insoles 2024 025 Not available 07/29/2024 16:44:57 Procedures None recorded. Surgeries None recorded. Imaging MRI, lumbar spine, w/o contrast - worsening pain with bilateral pain radiating down the legs 2024 025 [facility] ([facility]), [address], [place], [address], 01/19/2025 17:32:25 Medication Orders gabapenti n 600 mg tablet 2024 025 [id number], [address] [place] [address], [id number], 01/12/2025 11:28:00 desvenlaf axine succinate ER 25 mg tablet,ex tended release 24 hr 2024 025 [facility] #[id number], [address] [place] [address], [id number], 06/08/2024 10:19:09 clonazepa m 0.5 mg tablet 2023 024 [id number], [address] [place] [address], [id number], 06/10/2023 12:38:19 Patient TargetsNo targets recorded. Patient Instructions Encounter Date Encounter Id Patient Instructions Last Modified By Organization Details Last Modified Time 06/10/2023 [id number] high blood pressure: care instructions Not available 06/10/2023 11:05:33 learning about high blood pressure Not available 06/10/2023 11:05:33 12/10/2023 [id number] sleep apnea: car e instructions Not available 12/10/2023 10:36:07 high blood pressure: care instructions Not available 12/10/2023 10:36:07 learning about high blood pressure Not available 12/10/2023 10:36:07 deep vein thrombosis: care instructions Not available 12/10/2023 10:36:07 learning about deep vein thrombosis Not available 12/10/2023 10:36:07 benign prostatic hyperplasia: care instructions Not available 12/10/2023 10:36:07 06/08/2024 [id number] sleep apnea: car e instructions Not available 06/08/2024 10:19:03 high blood pressure: care instructions Not available 06/08/2024 10:19:03 learning about high blood pressure Not available 06/08/2024 10:19:03 deep vein thrombosis: care instructions Not available 06/08/2024 10:19:03 learning about deep vein thrombosis Not available 06/08/2024 10:19:03 09/08/2024 [id number] sleep apnea: car e instructions Not available 09/08/2024 10:15:27 deep vein thrombosis: care instructions Not available 09/08/2024 10:15:27 learning about deep vein thrombosis Not available 09/08/2024 10:15:27 benign prostatic hyperplasia: care instructions Not available 09/08/2024 10:15:27 01/12/2025 [id number] sleep apnea: car e instructions Not available [...] Not available 01/12/2025 11:27:45 Reason for Referral Acoustical Engineer Referral for Well controlled type 2 diabetes mellitus pt is requesting for insoles Referring Physician: Lizz Lopez [facility], Encounter Date: 06/08/2024 General Surgeon Referral for Lipoma of back lipoma on back has grown over the year, sent to surgery for removal Referring Physician: Lizz Lopez [facility], Encounter Date: 09/08/2024 Mental Health Counselor Refe rral for Mood disorder Referring Physician: Lizz Lopez [facility], Encounter Date: 01/12/2025 Results Created Date Observation Date Name Description Value Unit Range Abnormal Flag Note LastModifiedBy Organization Detail LastModifiedTime 06/16/19 25 06/15/2024 PROST ATE SPECI FIC ANTIG EN DIAGN OSTIC PSA 1.09 NG/mL 0.00-4 .00 Not Available [address], [address], 06/15/2024 14:34:08 06/16/19 25 06/15/2024 PROST ATE SPECI FIC ANTIG EN DIAGN OSTIC note See Report [facility], [address], [place], [place] [address] Not Available [address], [address], 06/15/2024 14:34:08 06/11/19 24 06/11/2023 HEMOG LOBIN [...] Go To The Location Of Their Choice, [address] 06/11/2023 21:28:18 06/11/19 24 06/11/2023 LIPID PANEL non HDL cholesterol (calc) 121 mg/dL (<160) Not Available [facility] (Centralized Electronic Ordering - All Locations) Patient Can Go To The Location Of Their Choice, [address] 06/11/2023 21:28:18 12/12/1912/12/2023 CBC WITH DIFFE RENTI AL/PL ATELE T WBC 7.8 x10e3 /uL 3.4-10 .8 normal Not Available [facility] ([facility]) [address] [place], [address], 12/20/2023 22:08:49 12/12/19 24 12/12/2023 CBC WITH DIFFE RENTI AL/PL ATELE T RBC 5.40 x10e6 /uL 4.14-5 .80 normal Not Available [facility] ([facility]) [address] [place], [address], 12/20/2023 22:08:49 12/12/19 24 12/12/2023 CBC WITH DIFFE RENTI AL/PL ATELE T hemoglobin 16.2 g/dL 13.0-1 7.7 normal Not Available [facility] ([facility]) [address] [place], [address], 12/20/2023 22:08:49 12/12/19 24 12/12/2023 CBC WITH DIFFE RENTI AL/PL ATELE T hematocrit 49.1 % 37.5-5 1.0 normal Not Available [facility] ([facility]) [address] [place], [address], 12/20/2023 22:08:49 12/12/19 24 12/12/2023 CBC WITH DIFFE RENTI AL/PL ATELE T MCV 91 fL 79-97 normal Not Available [facility] ([facility]) [address] [facility], [place], [address], 12/20/2023 22:08:49 12/12/19 24 12/12/2023 CBC WITH DIFFE RENTI AL/PL ATELE T MCH 30.0 pg 26.6-3 3.0 normal Not Available [facility] ([facility]) [address] [facility], [place], [address], 12/20/2023 22:08:49 12/12/19 24 12/12/2023 CBC WITH DIFFE RENTI AL/PL ATELE T MCHC 33.0 g/dL 31.5-3 5.7 normal Not Available [facility] ([facility]) [address] [facility], [place], [address], 12/20/2023 22:08:49 12/12/19 24 12/12/2023 CBC WITH DIFFE RENTI AL/PL ATELE T RDW 12.7 % 11.6-1 5.4 Not Available [facility] ([facility]) [address] [place], [address], 12/20/2023 22:08:49 12/12/19 24 12/12/2023 CBC WITH DIFFE RENTI AL/PL ATELE T platelets 155 x10e3 /uL 150-45 0 normal Not Available [facility] ([facility]) [address] [place], [address], 12/20/2023 22:08:49 12/12/19 24 12/12/2023 CBC WITH DIFFE RENTI AL/PL ATELE T neutrophils 71 % not estab. normal Not Available [facility] ([facility]) [address] [place], [address], 12/20/2023 22:08:49 12/12/19 24 12/12/2023 CBC WITH DIFFE RENTI AL/PL ATELE T lymphs 19 % not estab. normal Not Available [facility] ([facility]) [address] [place], [address], 12/20/2023 22:08:49 12/12/19 24 12/12/2023 CBC WITH DIFFE RENTI AL/PL ATELE T monocytes 7 % not estab. normal Not Available [facility] ([facility]) [address] [facility], [place], [address], 12/20/2023 22:08:49 12/12/19 24 12/12/2023 CBC WITH DIFFE RENTI AL/PL ATELE T eos 2 % not estab. normal Not Available [facility] ([facility]) [address] [facility], [place], [address], 12/20/2023 22:08:49 12/12/19 24 12/12/2023 CBC WITH DIFFE RENTI AL/PL ATELE T basos 1 % not estab. normal Not Available [facility] ([facility]) [address] [facility], [place], [address], 12/20/2023 22:08:49 12/12/19 24 12/12/2023 CBC WITH DIFFE RENTI AL/PL ATELE T immature cells WATER RESOURCE PROJECT MANAGER Not Available [facility] ([facility]) [address] [place], [address], 12/20/2023 22:08:49 12/12/19 24 12/12/2023 CBC WITH DIFFE RENTI AL/PL ATELE T neutrophils (absolute) 5.6 x10e3 /uL 1.4-7. 0 normal Not Available [facility] ([facility]) [address] [place], [address], 12/20/2023 22:08:49 12/12/19 24 12/12/2023 CBC WITH DIFFE RENTI AL/PL ATELE T lymphs (absolute) 1.5 x10e3 /uL 0.7-3. 1 normal Not Available [facility] ([facility]) [address] [place], [address], 12/20/2023 22:08:49 12/12/19 24 12/12/2023 CBC WITH DIFFE RENTI AL/PL ATELE T monocytes(ab solute) 0.5 x10e3 /uL 0.1-0. 9 normal Not Available [facility] ([facility]) [address] [facility], [place], [address], 12/20/2023 22:08:49 12/12/19 24 12/12/2023 CBC WITH DIFFE RENTI AL/PL ATELE T eos (absolute) 0.2 x10e3 /uL 0.0-0. 4 normal Not Available [facility] ([facility]) [address] [facility], [place], [address], 12/20/2023 22:08:49 12/12/19 24 12/12/2023 CBC WITH DIFFE RENTI AL/PL ATELE T baso (absolute) 0.0 x10e3 /uL 0.0-0. 2 normal Not Available [facility] ([facility]) [address] [facility], [place], [address], 12/20/2023 22:08:49 12/12/19 24 12/12/2023 CBC WITH DIFFE RENTI AL/PL ATELE T immature granulocytes 0 % not estab. Not Available [facility] ([facility]) [address] [facility], [place], [address], 12/20/2023 22:08:49 12/12/19 24 12/12/2023 CBC WITH DIFFE RENTI AL/PL ATELE T immature grans (abs) 0.0 x10e3 /uL 0.0-0. 1 Not Available [facility] ([facility]) [address] [place], [address], 12/20/2023 22:08:49 12/12/19 24 12/12/2023 CBC WITH DIFFE RENTI AL/PL ATELE T NRBC WATER RESOURCE PROJECT MANAGER Not Available [facility] ([facility]) [address], [place], [address], 12/20/2023 22:08:49 12/12/19 24 12/12/2023 CBC WITH DIFFE EFREN AL/PHYLICIA Farrar hematology comments: WATER RESOURCE PROJECT MANAGER Not Available [facility] ([facility]) [address], [place], [address], 12/20/2023 22:08:49 12/12/19 24 12/12/2023 BASIC METAB OLIC PANEL (8) glucose 122 mg/dL 70-99 above high normal Not Available [facility] ([facility]) [address], [place], [address], 12/20/2023 22:08:50 12/12/19 24 12/12/2023 BASIC METAB OLIC PANEL (8) BUN 13 mg/dL 8-27 normal Not Available [facility] ([facility]) [address], [place], [address], 12/20/2023 22:08:50 12/12/19 24 12/12/2023 BASIC METAB OLIC PANEL (8) creatinine 1.01 mg/dL 0.76-1 .27 normal Not Available [facility] ([facility]) [address] [facility], [place], [address], 12/20/2023 22:08:50 12/12/19 24 12/12/2023 BASIC METAB OLIC PANEL (8) eGFR 81 mL/mi n/1.7 3 >59 normal Not Available [facility] ([facility]) [address] [facility], [place], [address], 12/20/2023 22:08:50 12/12/19 24 12/12/2023 BASIC METAB OLIC PANEL (8) BUN/creatini ne ratio 13 10-24 normal Not Available [facility] ([facility]) [address] [facility], [place], [address], 12/20/2023 22:08:50 12/12/19 24 12/12/2023 BASIC METAB OLIC PANEL (8) sodium 143 mmol/ L 134-14 4 normal Not Available [facility] ([facility]) [address] [place], [address], 12/20/2023 22:08:50 12/12/19 24 12/12/2023 BASIC METAB OLIC PANEL (8) potassium 5.1 mmol/ L 3.5-5. 2 normal Not Available [facility] ([facility]) [address] [place], [address], 12/20/2023 22:08:50 12/12/19 24 12/12/2023 BASIC METAB OLIC PANEL (8) chloride 102 mmol/ L 96-106 normal Not Available [facility] ([facility]) [address] [place], [address], 12/20/2023 22:08:50 12/12/19 24 12/12/2023 BASIC METAB OLIC PANEL (8) carbon dioxide, total 24 mmol/ L 20-29 normal Not Available [facility] ([facility]) [address] [place], [address], 12/20/2023 22:08:50 12/12/19 24 12/12/2023 BASIC METAB OLIC PANEL (8) calcium 9.3 mg/dL 8.6-10 .2 normal Not Available [facility] ([facility]) [address] [place], [address], 12/20/2023 22:08:50 12/12/19 24 12/12/2023 LIPID PANEL cholesterol, total 154 mg/dL 100-19 9 normal Not Available [facility] ([facility]) [address] [place], [address], 12/20/2023 22:08:50 12/12/19 24 12/12/2023 LIPID PANEL triglyceride s 150 mg/dL 0-149 above high normal Not Available [facility] ([facility]) [address] [facility], [place], [address], 12/20/2023 22:08:50 12/12/19 24 12/12/2023 LIPID PANEL HDL cholesterol 33 mg/dL >39 below low normal Not Available [facility] ([facility]) [address] [facility], [place], [address], 12/20/2023 22:08:50 12/12/19 24 12/12/2023 LIPID PANEL VLDL cholesterol jones 27 mg/dL 5-40 Not Available [facility] ([facility]) [address] [facility], [place], [address], 12/20/2023 22:08:50 12/12/19 24 12/12/2023 LIPID PANEL LDL chol calc ([facility]) 94 mg/dL 0-99 Not Available [facility] ([facility]) [address] [facility], [place], [address], 12/20/2023 22:08:50 12/12/19 24 12/12/2023 LIPID PANEL LDL calc comment: WATER RESOURCE PROJECT MANAGER Not Available [facility] ([facility]) [address] [facility], [place], [address], 12/20/2023 22:08:50 12/12/19 24 12/20/2023 PROST ATE [...] a. Not Available [facility] [address] [facility], [place], [address], 12/20/2023 22:08:51 12/12/19 24 12/13/2023 TSH RFX ON ABNOR MAL TO FREE T4 TSH 2.860 uIU/m L 0.450- 4.500 normal Not Available [facility] ([facility]) [address] [place], [address], 12/20/2023 22:08:51 12/12/19 24 12/12/2023 AST (SGOT ) AST (SGOT) 27 IU/L 0-40 normal Not Available [facility] ([facility]) [address] [place], [address], 12/20/2023 22:08:52 12/12/19 24 12/12/2023 ALT (SGPT ) ALT (SGPT) 34 IU/L 0-44 normal Not Available [facility] ([facility]) [address] [place], [address], 12/20/2023 22:08:52 12/23/19 24 12/23/2023 HEMOG LOBIN A1C hemoglobin A1C 6.6 % 4.8-5. 6 above high normal Predi abete s: 5.7 - 6.4 Diabe margarito: >6.4 Glyce isaiah contr ol for adult s with diabe margarito: <7.0 Not Available [facility] ([facility]) [address] [place], [address], 12/24/2023 06:08:51 03/23/20 24 03/24/2024 HEMOG LOBIN A1C hemoglobin A1C 6.2 % 4.8-5. 6 above high normal Predi abete s: 5.7 - 6.4 Diabe margarito: >6.4 Glyce isaiah contr ol for adult s with diabe margarito: <7.0 Not Available [facility] ([facility]) [address] [place], [address], 03/24/2024 14:06:10 01/15/20 25 01/14/2025 CBC WITH DIFFE RENTI AL/PL ATELE T WBC 6.9 x10e3 /uL 3.4-10 .8 normal Not Available [facility] ([facility]) [address] [facility], [place], [address], 01/15/2025 06:08:11 01/15/20 25 01/14/2025 CBC WITH DIFFE RENTI AL/PL ATELE T RBC 4.87 x10e6 /uL 4.14-5 .80 normal Not Available [facility] ([facility]) [address] [place], [address], 01/15/2025 06:08:11 01/15/20 25 01/14/2025 CBC WITH DIFFE RENTI AL/PL ATELE T hemoglobin 15.3 g/dL 13.0-1 7.7 normal Not Available [facility] ([facility]) [address] [facility], [place], [address], 01/15/2025 06:08:11 01/15/20 25 01/14/2025 CBC WITH DIFFE RENTI AL/PL ATELE T hematocrit 45.3 % 37.5-5 1.0 normal Not Available [facility] ([facility]) [address] [place], [address], 01/15/2025 06:08:11 01/15/20 25 01/14/2025 CBC WITH DIFFE RENTI AL/PL ATELE T MCV 93 fL 79-97 normal Not Available [facility] ([facility]) [address] [place], [address], 01/15/2025 06:08:11 01/15/20 25 01/14/2025 CBC WITH DIFFE RENTI AL/PL ATELE T MCH 31.4 pg 26.6-3 3.0 normal Not Available [facility] ([facility]) [address] [place], [address], 01/15/2025 06:08:11 01/15/20 25 01/14/2025 CBC WITH DIFFE RENTI AL/PL ATELE T MCHC 33.8 g/dL 31.5-3 5.7 normal Not Available [facility] ([facility]) [address] [facility], [place], [address], 01/15/2025 06:08:11 01/15/2001/14/2025 CBC WITH DIFFE RENTI AL/PL ATELE T RDW 13.3 % 11.6-1 5.4 Not Available [facility] ([facility]) [address] [place], [address], 01/15/2025 06:08:11 01/15/20 25 01/14/2025 CBC WITH DIFFE RENTI AL/PL ATELE T platelets 154 x10e3 /uL 150-45 0 normal Not Available [facility] ([facility]) [address] [facility], [place], [address], 01/15/2025 06:08:11 01/15/20 25 01/14/2025 CBC WITH DIFFE RENTI AL/PL ATELE T neutrophils 66 % not estab. normal Not Available [facility] ([facility]) [address] [facility], [place], [address], 01/15/2025 06:08:11 01/15/20 25 01/14/2025 CBC WITH DIFFE RENTI AL/PL ATELE T lymphs 23 % not estab. normal Not Available [facility] ([facility]) [address] [place], [address], 01/15/2025 06:08:11 01/15/20 25 01/14/2025 CBC WITH DIFFE RENTI AL/PL ATELE T monocytes 7 % not estab. normal Not Available [facility] ([facility]) [address] [place], [address], 01/15/2025 06:08:11 01/15/2001/14/2025 CBC WITH DIFFE RENTI AL/PL ATELE T eos 3 % not estab. normal Not Available [facility] ([facility]) [address] [facility], [place], [address], 01/15/2025 06:08:11 01/15/20 25 01/14/2025 CBC WITH DIFFE RENTI AL/PL ATELE T basos 1 % not estab. normal Not Available [facility] ([facility]) [address] [facility], [place], [address], 01/15/2025 06:08:11 01/15/2001/14/2025 CBC WITH DIFFE RENTI AL/PL ATELE T immature cells WATER RESOURCE PROJECT MANAGER Not Available [facility] ([facility]) [address] [place], [address], 01/15/2025 06:08:11 01/15/2001/14/2025 CBC WITH DIFFE RENTI AL/PL ATELE T neutrophils (absolute) 4.6 x10e3 /uL 1.4-7. 0 normal Not Available [facility] ([facility]) [address] [place], [address], 01/15/2025 06:08:11 01/15/20 25 01/14/2025 CBC WITH DIFFE RENTI AL/PL ATELE T lymphs (absolute) 1.6 x10e3 /uL 0.7-3. 1 normal Not Available [facility] ([facility]) [address] [place], [address], 01/15/2025 06:08:11 01/15/2001/14/2025 CBC WITH DIFFE RENTI AL/PL ATELE T monocytes(ab solute) 0.5 x10e3 /uL 0.1-0. 9 normal Not Available [facility] ([facility]) [address] [place], [address], 01/15/2025 06:08:11 01/15/20 25 01/14/2025 CBC WITH DIFFE RENTI AL/PL ATELE T eos (absolute) 0.2 x10e3 /uL 0.0-0. 4 normal Not Available [facility] ([facility]) [address] [facility], [place], [address], 01/15/2025 06:08:11 01/15/20 25 01/14/2025 CBC WITH DIFFE RENTI AL/PL ATELE T baso (absolute) 0.0 x10e3 /uL 0.0-0. 2 normal Not Available [facility] ([facility]) [address] [facility], [place], [address], 01/15/2025 06:08:11 01/15/20 25 01/14/2025 CBC WITH DIFFE RENTI AL/PL ATELE T immature granulocytes 0 % not estab. Not Available [facility] ([facility]) [address] [facility], [place], [address], 01/15/2025 06:08:11 01/15/20 25 01/14/2025 CBC WITH DIFFE RENTI AL/PL ATELE T immature grans (abs) 0.0 x10e3 /uL 0.0-0. 1 Not Available [facility] ([facility]) [address] [facility], [place], [address], 01/15/2025 06:08:11 01/15/20 25 01/14/2025 CBC WITH DIFFE RENTI AL/PL ATELE T NRBC WATER RESOURCE PROJECT MANAGER Not Available [facility] ([facility]) [address] [facility], [place], [address], 01/15/2025 06:08:11 01/15/20 25 01/14/2025 CBC WITH DIFFE RENTI AL/PL ATELE T hematology comments: WATER RESOURCE PROJECT MANAGER Not Available [facility] ([facility]) [address] [facility], [place], [address], 01/15/2025 06:08:11 10/09/20 25 01/15/2025 BASIC METAB OLIC PANEL (8) glucose 126 mg/dL 70-99 above high normal Not Available [facility] ([facility]) [address] [place], [address], 01/15/2025 06:08:12 01/15/20 25 01/15/2025 BASIC METAB OLIC PANEL (8) BUN 12 mg/dL 8-27 normal Not Available [facility] ([facility]) [address] [place], [address], 01/15/2025 06:08:12 01/15/2001/15/2025 BASIC METAB OLIC PANEL (8) creatinine 0.97 mg/dL 0.76-1 .27 normal Not Available [facility] ([facility]) [address] [place], [address], 01/15/2025 06:08:12 01/15/20 25 01/15/2025 BASIC METAB OLIC PANEL (8) eGFR 85 mL/mi n/1.7 3 >59 normal Not Available [facility] ([facility]) [address] [place], [address], 01/15/2025 06:08:12 01/15/20 25 01/15/2025 BASIC METAB OLIC PANEL (8) BUN/creatini ne ratio 12 10-24 normal Not Available [facility] ([facility]) [address] [place], [address], 01/15/2025 06:08:12 01/15/20 25 01/15/2025 BASIC METAB OLIC PANEL (8) sodium 142 mmol/ L 134-14 4 normal Not Available [facility] ([facility]) [address] [place], [address], 01/15/2025 06:08:12 01/15/20 25 01/15/2025 BASIC METAB OLIC PANEL (8) potassium 4.2 mmol/ L 3.5-5. 2 normal Not Available [facility] ([facility]) [address] [facility] [place], [address], 01/15/2025 06:08:12 01/15/2001/15/2025 BASIC METAB OLIC PANEL (8) chloride 103 mmol/ L 96-106 normal Not Available [facility] ([facility]) [address] [facility] [place], [address], 01/15/2025 06:08:12 01/15/20 25 01/15/2025 BASIC METAB OLIC PANEL (8) carbon dioxide, total 23 mmol/ L 20-29 normal Not Available [facility] ([facility]) [address] [facility] [place], [address], 01/15/2025 06:08:12 01/15/2001/15/2025 BASIC METAB OLIC PANEL (8) calcium 9.0 mg/dL 8.6-10 .2 normal Not Available [facility] ([facility]) [address] [facility] [place], [address], 01/15/2025 06:08:12 01/15/2001/15/2025 LIPID PANEL cholesterol, total 155 mg/dL 100-19 9 normal Not Available [facility] ([facility]) [address] [facility] [place], [address], 01/15/2025 06:08:12 01/15/20 25 01/15/2025 LIPID PANEL triglyceride s 136 mg/dL 0-149 normal Not Available [facility] ([facility]) [address] [facility] [place], [address], 01/15/2025 06:08:12 01/15/20 25 01/15/2025 LIPID PANEL HDL cholesterol 36 mg/dL >39 below low normal Not Available [facility] ([facility]) [address] [facility] [place], [address], 01/15/2025 06:08:12 01/15/20 25 01/15/2025 LIPID PANEL VLDL cholesterol jones 24 mg/dL 5-40 Not Available [facility] ([facility]) [address] [place], [address], 01/15/2025 06:08:12 01/15/20 25 01/15/2025 LIPID PANEL LDL chol calc ([facility]) 95 mg/dL 0-99 Not Available [facility] ([facility]) [address] [place], [address], 01/15/2025 06:08:12 01/15/20 25 01/15/2025 LIPID PANEL LDL calc comment: [employer] PROJECT MANAGER Not Available [facility] ([facility]) [address] [facility], [place], [address], 01/15/2025 06:08:12 01/15/20 25 01/15/2025 TSH RFX ON ABNOR MAL TO FREE T4 TSH 4.160 uIU/m L 0.450- 4.500 normal Not Available [facility] ([facility]) [address] [place], [address], 01/15/2025 06:08:13 01/15/20 25 01/14/2025 HEPAT IC FUNCT ION PANEL (7) protein, total 6.5 g/dL 6.0-8. 5 normal Not Available [facility] ([facility]) [address] [place], [address], 01/15/2025 16:06:51 01/15/20 25 01/14/2025 HEPAT IC FUNCT ION PANEL (7) albumin 4.2 g/dL 3.9-4. 9 normal Not Available [facility] ([facility]) [address] [place], [address], 01/15/2025 16:06:51 01/15/20 25 01/14/2025 HEPAT IC FUNCT ION PANEL (7) bilirubin, total 0.7 mg/dL 0.0-1. 2 normal Not Available [facility] ([facility]) [address] [facility] [place], [address], 01/15/2025 16:06:51 01/15/20 25 01/14/2025 HEPAT IC FUNCT ION PANEL (7) alkaline phosphatase 71 IU/L 47-123 normal Not Available [facility] ([facility]) [address] [facility] [place], [address], 01/15/2025 16:06:51 01/15/20 25 01/14/2025 HEPAT IC FUNCT ION PANEL (7) AST (SGOT) 22 IU/L 0-40 normal Not Available [facility] ([facility]) [address] [facility] [place], [address], 01/15/2025 16:06:51 01/15/20 25 01/14/2025 HEPAT IC FUNCT ION PANEL (7) ALT (SGPT) 23 IU/L 0-44 normal Not Available [facility] ([facility]) [address] [facility] [place], [address], 01/15/2025 16:06:51 01/15/20 25 01/15/2025 HEPAT IC FUNCT ION PANEL (7) bilirubin, direct 0.18 mg/dL 0.00-0 .40 normal Not Available [facility] ([facility]) [address] [facility] [place], [address], 01/15/2025 16:06:51 01/15/20 25 01/15/2025 ALBUM IN/CR EATIN INE RATIO ,URIN E creatinine, urine 187.8 mg/dL not estab. normal Not Available [facility] ([facility]) [address] [facility] [place], [address], 01/15/2025 16:06:52 01/15/20 25 01/15/2025 ALBUM IN/CR EATIN INE RATIO ,URIN E albumin, urine 26.7 ug/mL not estab. Not Available [facility] ([facility]) [address] [facility], [place], [address], 01/15/2025 16:06:52 01/15/2001/15/2025 ALBUM IN/CR EATIN INE RATIO ,URIN E alb/creat ratio 14 mg/g_ creat 0-29 Melissa l: 0 - 29 Moder ately incre ased: 30 - 300 Sever venu incre ased: >300 Not Available [facility] ([facility]) [address] [facility], [place], [address], 01/15/2025 16:06:52 01/15/2001/14/2025 HEMOG LOBIN A1C hemoglobin A1C 6.4 % 4.8-5. 6 above high normal Predi abete s: 5.7 - 6.4 Diabe margarito: >6.4 Glyce isaiah contr ol for adult s with diabe margarito: <7.0 Not Available [facility] ([facility]) [address] [facility], [place], [address], 01/15/2025 16:06:52 01/20/2001/18/2025 MRI, lumba r spine , w/o contr ast No observ ation record ed. [facility] [address], [address], 01/24/2025 14:26:02 Result Notes None recorded. Problems Name Problem SNOMED Code Status Onset Date Resolution Date Notes Provider Name and Address Organization Details Recorded Time Collagen ous colitis 88757004 Active 2017 Clary solorzano [facility] 8 14:59:41 Pain in spine 25468832 Completed 201701/31/2018 Yeny solorzano [facility] 8 11:40:37 Peripher al neuritis 299654389 Active 2017 biljoaquin jefferson lower extremit y LIZZ LOPEZ MD [address] [address], [place], [address] [place], [place] [address] 3 14:09:30 Chronic neck pain 69259839546 07 Active 2017 Yenysatish Melchoraristides-Sunshine juarez null, [facility] 8 11:40:33 Hypercho lesterol emia 61029175 Active 2017 Yenysatish Melchoraristides-Sunshine sidhuorenani null, [facility] 8 11:40:51 Benign prostati c hyperpla lulu 599191192 Active 2017 Yeny Melchoraristides-Sunshine duggannani null, [facility] 8 11:41:01 Well controll ed type 2 diabetes mellitus 687839652 Active 2017 Yeny Mckay-Sunshine duggannani null, [facility] 8 11:42:50 Closed fracture of left foot 43028118975 857287 Completed 201812/06/2022 LIZZ LOPEZ MD [address], [facility] [place], [address], [facility] 3 06:46:22 Deep venous thrombos is 806291858 Active 2020 Debby Arias MA null, [facility] 1 10:58:34 Anxiety 56090283 Active 2020 Debby Arias MA null, [facility] 1 10:38:51 Essentia l hyperten mariia 20076982 Active 2021 Yeny Bashir-Sunshine duggannani null, [facility] 2 15:23:09 Steatoti c liver disease 388921697 Active 2021 Yeny Bashir-Sunshine juarez null, [facility] 2 12:40:46 Obstruct simran sleep apnea syndrome 82282523 Active 2021 LIZZ LOPEZ MD [address], [facility] [place], [address], [facility] 2 08:42:44 Lumbar radiculo ronald 201116937 Active 2024 LIZZ LOPEZ MD [address] [facility] [address], [place], [address], [facility] 5 14:20:11 Problem Notes None recorded. Procedures Surgical History Date Name Laterality Status Provider Name and Address Organization Details Recorded Time 12/07/19 23 Advanced Care Planning completed LIZZ LOPEZ MD [address] [facility] [address], [place], [address], [facility] 12/06/2022 06:44:12 12/11/19 20 Eye Surgery completed Helen ferreira MA [facility] 12/06/2022 13:58:51 12/06/19 19 Mammogram both breasts completed Ebony Kendrick [facility] 12/24/2018 10:54:17 04/08/19 18 Colonoscopy completed Helen ferreira MA [facility] 12/06/2022 13:57:47 03/14/20 16 Flexible Sigmoidoscopy completed Dania Whittington [facility] 11/12/2018 15:16:19 Appendectomy completed Clary Mauro [facility] 09/30/2017 14:58:22 Imaging Results None recorded. Procedure [...] TAKE 1 TABLET BY MOUTH EVERY DAY 10/30/ 2025 active Not Available Not Available Not Avai [...] 134/82 mm[Hg] LIZZ LOPEZ MD [address] [facility] [address], [place], [address], [facility] 06/08/2024 10:16:37 Date Recorded Body height Body mass index (BMI) Body weight Heart rate Oxygen saturation Body temperature Systolic And Diastolic Provider Name and Address Organization Details Last Updated DateTime 5 171.45 cm 28.7 kg/m2 22744.1 8 g 101 /min 97 % 98.3 [degF] 145/87 mm[Hg] Emily Loyola MA [facility] 5 09:59:58 Date Recorded Body height Body mass index (BMI) Body weight Oxygen saturation Heart rate Body temperature Systolic And Diastolic Provider Name and Address Organization Details Last Updated DateTime 4 171.45 cm 30.1 kg/m2 12811.2 1 g 98 % 88 /min 97.5 [degF] 117/73 mm[Hg] Debby Arias MA [facility] 4 10:51:07 Date Recorded Body height Body mass index (BMI) Body weight Oxygen saturation Heart rate Body temperature Systolic And Diastolic Provider Name and Address Organization Details Last Updated DateTime 5 171.45 cm 28.4 kg/m2 47878 g 97 % 99 /min 98.4 [degF] 127/69 mm[Hg] Debby Arias MA [facility] 5 10:05:08 Date Recorded Body height Body mass index (BMI) Body weight Oxygen saturation Heart rate Body temperature Systolic And Diastolic Provider Name and Address Organization Details Last Updated DateTime 4 171.45 cm 29.2 kg/m2 06981.0 6 g 98 % 92 /min 97.8 [degF] 127/77 mm[Hg] Debby Arias MA [facility] 4 10:14:24 Date Recorded Body height Body mass index (BMI) Body weight Oxygen saturation Heart rate Body temperature Systolic And Diastolic Provider Name and Address Organization Details Last Updated DateTime 5 171.45 cm 29.5 kg/m2 96132.2 4 g 98 % 89 /min 98.5 [degF] 123/73 mm[Hg] Debby Arias MA [facility] 5 10:57:17 Social History Question Answer Notes LastModified by Organizat ion Details LastModified Time Tobacco Smoking Status Former Smoker quit age 42 Clary Mauro jeanine [facility] 09/30/2017 14:57:24 Do You Have An Advance [...] Did You Quit Smoking? 16+yearssinc elastcigaret te [email or web address] Information not available 06/15/2020 Do You Take [...] Or Greater Than 100 Degrees Fahrenheit? No [email or web address] Information not available 12/18/2019 Are You Or Anyone In Your Household A Health Care Provider Or Emergency Responder? No [email or web address] Information not available 12/18/2019 To The Best Of Your Knowledge Have You Been In Close Proximity To Any Individual Who Tested Positive For COVID-19? No [email or web address] Information not available 12/18/2019 *AWV ONLY* Are You Presently Prescribed Opioid Medication By PCP Or Specialist? If YES -Provider Assess The Benefit For Other, Non-opioid Pain Therapies Instead, Even If The Patient Does Not Have OUD But Is Possibly At Risk. No Information not available 01/12/2021 Have You Recently Traveled To A [place] [address] High Risk Area Or Gathering In The Last 10 Days? No [email or web address] Information not available 06/01/2020 What Was The Date Of Your Most Recent Tobacco Screening? 01/12/2025 [email or web address] Information not available 01/12/2025 How Many Children Do You Have? 2 Information not available 09/30/2017 What Is Your Current Pack Years? [email or web address] Information not available 10/26/2021 Do You Use Your Seat Belt Or Car Seat Routinely? Yes [email or web address] Information not available 01/12/2021 Are You Sexually Active? No (Ladonna) Information not available 12/06/2022 Do You Have Smoke And Carbon Monoxide Detectors In Your Home? Yes [email or web address] Information not available 01/12/2021 At What Age Did You Start Smoking Tobacco? 16 Information not available 09/30/2017 Are You Passively Exposed To Smoke? No [email or web address] Information not available 12/18/2019 How Much Tobacco Do You Smoke? No [email or web address] Information not available 01/12/2021 Do You Use [...] used smokeless tobacco? Never used smokeless tobacco [email or web address] Information not available 11/12/2018 Are you currently employed? No retired Information not available 09/30/2017 Are you able to walk independently without assistance or assistive devices? [email or web address] Information not available 10/26/2021 Are you able to care for yourself independently? 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 [email or web address] Information not available 12/06/2022 Do you or [...] col on cancer Medical History Condition Response Gout N Other N Kidney Stones N Blood Diseases N Hyperthyroidism N COPD N Depression Y Headaches/Migraines N Anxiety Disorder Y Obesity N Vision or Eye Problems Y Arthritis Y Polyps N Infertility N Acid Reflux (GERD) Y Cancer N Stroke N Fibromyalgia N Kidney Disease N Heart Problems N Ear or Hearing Problems N Hospitalizations N Acne N Eating Disorder N Skin Problems Y Constipation N Bladder Problems N Tuberculosis N AIDS/HIV N Asthma N Allergies N Hepatitis N Pulmonary Embolism N Chicken Pox Y Autism Spectrum Disorder (ASD) N Breast Cancer N Lung Disease N Hypothyroidism N Defects or Inherited Disease N Anesthesia Complications N Varicose Veins N Head Injury/Concussion N Congenital Anomalies N ADHD N Endometriosis N High Cholesterol Y Liver Disease N Thyroid Problems N GI Problems Y Anemia N Mental Illness N Diabetes Y Ovarian Cancer N Blood Transfusions N Seizures/Epilepsy N Congestive Heart Failure (CHF) N Eczema N Abuse/Domestic Violence N Diverticulitis N Reflux/GERD Y Hypertension N Osteoporosis N Immunizations Vaccine Type Date Status Note Provider Nam e and Address Organization Details Recorded Time pneumococcal polysaccharide PPV23 0 completed Dania solorzano [facility] 08/19/2017 10:32:22 Tdap 0 completed Dania solorzano [facility] 08/19/2017 10:32:33 Tdap 8 completed Debby Arias MA null, [facility] 01/09/2018 14:29:12 Hep B, adult 8 completed Debby Arias MA null, [facility] 05/18/2021 11:22:36 Hep B, adult 8 completed Debby Arias MA null, [facility] 05/18/2021 11:22:36 Hep B, adult 8 completed Debby Arias MA null, [facility] 05/18/2021 11:22:36 zoster live 9 completed Helen Silverio MA null, [facility] 08/27/2018 11:28:46 zoster live 9 completed Princess Olivera LPN null, [facility] 10/14/2018 16:28:19 COVID-19, mRNA, LNP-S, PF, 30 mcg/0.3 mL dose 1 completed PAWAN Simon, [facility] 05/18/2021 11:22:36 COVID-19, mRNA, LNP-S, PF, 30 mcg/0.3 mL dose 1 completed PAWAN Simon, [facility] 05/18/2021 11:22:36 COVID-19, mRNA, LNP-S, PF, 30 mcg/0.3 mL dose 1 completed Debby Arias MA null, [facility] 05/18/2021 11:22:36 Influenza, adjuvanted, quadrivalent, PF 1 completed PAWAN Simon, [facility] 05/18/2021 11:22:36 Hep A-Hep B 1 completed PAWAN Simon, [facility] 05/18/2021 11:22:36 Influenza, split virus, quadrivalent, PF 8 completed PAWAN Simon, [facility] 05/18/2021 11:22:36 Hep A-Hep B 1 completed PAWAN Simon, [facility] 05/18/2021 11:22:36 Influenza, split virus, quadrivalent, PF 9 completed PAWAN Simon, [facility] 05/18/2021 11:22:36 Influenza, split virus, quadrivalent, PF 0 completed PAWAN Simon, [facility] 05/18/2021 11:22:36 Hep A, adult 2 completed Not Available [facility] 12/06/2022 13:37:27 Hep B, adult 2 completed Not Available [facility] 12/06/2022 13:37:27 COVID-19, mRNA, LNP-S, PF, 30 mcg/0.3 mL dose, daphney-sucrose 2 completed PAWAN South, [facility] 08/16/2021 15:14:54 Hep A-Hep B 2 completed PAWAN South, [facility] 08/16/2021 15:14:54 Influenza, high-dose, quadrivalent, PF 2 completed PAWAN Mcgrath, [facility] 02/01/2022 14:57:54 Pneumococcal conjugate PCV20, polysaccharide [id number] conjugate, adjuvant, PF 3 completed PAWAN Simon, [facility] 06/10/2023 10:51:37 Influenza, high-dose, quadrivalent, PF 3 completed PAWAN Simon, [facility] 06/10/2023 10:51:37 RSV, recombinant, protein subunit RSVpreF, adjuvant reconstituted, 0.5 mL, PF 3 completed PAWAN Simon, [facility] 06/10/2023 10:51:38 COVID-19, mRNA, LNP-S, PF, daphney-sucrose, 30 mcg/0.3 mL 3 completed Debby Arias MA null, [facility] 06/10/2023 10:51:38 COVID-19, mRNA, LNP-S, PF, daphney-sucrose, 30 mcg/0.3 mL 4 completed Not Available [facility] 01/12/2025 10:48:15 Influenza, adjuvanted, trivalent, PF 4 completed Not Available [facility] 01/12/2025 10:48:15 SARS-COV-2 (COVID-19) vaccine, UNSPECIFIED 5 completed Dania Whittington jeanine, [facility] 12/22/2024 16:36:19 Influenza, high-dose, trivalent, PF 5 completed Dania Whittington null, [facility] 12/22/2024 16:36:46 Past Encounters Encounter ID Performer Location Encounter Start Date Encounter Closed Date Diagnosis/Indication Diagnosis SNOMED-CT Code Diagnosis ICD10 Code Diagnosis IMO Codes Diagnosis Note [id number] Yeny shutlz MD Main Office [address] [place] [address] 09/30/2017 14:18:46 09/30/2017 15:38:06 Adult health examination 910223178 Z00.00 see health issues below, pt expresses frustratio n about not having much social life, living in chronic neck pain for years. Benign pro static hyperplasia 989654072 N40.0 exam feels nl, is on 2 [...] Type 2 [place] betes mellitus without complication 357351632 E11.9 check labs if low a1c can stop metformin, has lost so much weight Degenerati on of cervical intervertebral disc 39848607 M50.30 chronic neck pain . followed by pain management Hypercholesterolemia 136 12479 E78.00 Fatigue 16976320 R53.83 [id number] Yeny shultz MD Main Office [address] [facility] [address] [facility] [place] [address] 01/31/2018 11:12:51 01/31/2018 11:58:35 Collagenous colitis 26699939 K52.831 finally better control of symptoms, weight up a bit Chronic neck pain 657201 7596 107 M54.2 on meds, stable Hypercholesterolemia 136 24803 E78.00 Benign pro static hyperplasia 472107062 N40.0 pt saw urology, he has stoped one of the meds for BPH, will see urology for a flow study. Well contr olled type 2 diabetes mellitus 929102107 E11.9 diet controlled , lost so much weight no need for meds. [id number] Yeny shultz MD Main Office [address] [address] [place] [address] 04/25/2018 10:49:47 04/25/2018 12:21:01 Influenza-like symptoms 445128702 R68.89 flu test negative, ok for otc antipyreti c if needed Wheezing 70367799 R06.2 albuterol updraft given with improvemen t of BS bilaterall y, still with some rhonchi and end exp wheeze. Will try proair at home for wheezing Pneumonia 541077184 J18. 9 clinically with pneumonia, will treat with antibiotic . Pt to call if not improving. Try robitussin DM to quiet cough Unexplaine d weight loss 121672017 R63.4 will need to get accurate weight once the boot is off his foot. In the interim, small frequent meals, keep followup with Dr Arredondo. Cannot start humira until cough better. Labs today [id number] Yeny shultz MD Main Office [address] [facility] [address] [facility] [place] [address] 05/30/2018 11:08:10 05/30/2018 11:56:55 Well controlled type 2 diabetes mellitus 505429773 E11.9 diet controlled , lost so much weight no need for meds. Benign pro static hyperplasia 041910916 N40.0 med refilled, pt sees but they are not filling meds but are awre of what he is on Collagenous colitis 1931 1003 K52.831 finally better control of symptoms, weight up and symptoms down will see GI next week looks much better Hypercholesterolemia 136 01711 E78.00 check fasting in a month or so Hypocalcemia 9231125 E83 .51 calcium low at 8.3 and albumin low, will repeat in a month or so, lab already ordered, is getting much better nutrition [id number] Gordy Woodard MD Main Office [address] [facility] [address] [facility] [place] [address] 08/27/2018 11:21:14 08/27/2018 12:27:19 Cough 32340994 R05 likely recurrence of pna - see below Nausea and vomiting 1693 1999 R11.2 just once -- rec. svitlana tea or flat svitlana jovita prn Fever 156879164 R50.9 cont to push fluids - see below Collagenous colitis 193 1003 K52.831 just acted up today but no bloody diarrhea - doubt cause of his sxs x 6 days Pneumonia 887766580 J18. 9 rec mucinex and proair (has at home) as dir rec probiotics while on abx check labs and cxr - see above [id number] Yeny shultz MD Main Office [address] [facility] [address] [facility] [place] [address] 11/12/2018 12:47:23 11/12/2018 13:34:17 Adult health examination 707953361 Z00.00 utd on screening, limited by neck pain Chronic neck pain 108181 1687 107 M54.2 on meds, stable Well contr olled type 2 diabetes mellitus 808868703 E11.9 diet controlled , lost so much weight no need for meds. Collagenous colitis 193 1003 K52.831 finally better control of symptoms, weight up and symptoms down will see GI next week looks much better Mass of left breast 1224 301126 6671773 N63.21 new to pt and examiner, see hx, will refer to breast center for evaluation Contusion of multiple sites 336627412 T07.XXXA check labs Intolerant of cold 72645 000 R68.89 check thyroid [id number] Yeny shultz MD Main Office [address] [facility] [address] [place] [address] 03/30/2019 15:00:12 03/30/2019 15:47:09 Screening for malignant neoplasm of lung 280451872 Z87.891 Eligible patients must have >=30 pack years. pt is eligible, referral placed Cough 48310615 R05 cough since 01/24, had a virus, is an ex smoker, he will get CXR [id number] Yeny shultz MD Main Office [address] [facility] [address] [place] [address] 05/29/2019 12:35:39 05/29/2019 13:16:45 Well controlled type 2 diabetes mellitus 374267931 E11.9 diet controlled , lost so much weight no need for meds. Chronic neck pain 772686 3583 107 M54.2 on meds, stable Hypercholesterolemia 136 46253 E78.00 well controlled 10/24 recheck in 4 months Neuropathy 043893429 G62 .9 from cervical dz, on gabapentin , sees pain management [id number] Yeny shultz MD Main Office [address] [address] [place] [address] 12/18/2019 12:56:38 12/18/2019 13:58:31 Adult health examination 178293944 Z00.00 utd on screening, limited by neck pain and neuropathi c foot pain, sees GI often due to collagenou s colitis Hypercholesterolemia 136 53698 E78.00 LDL 134, pt with diet controlled dM, will increase pravastati n to 60mg a day and recheck after 6 month f/u Well contr olled type 2 diabetes mellitus 241876296 E11.9 diet controlled , good control despite weight gain Benign pro static hyperplasia 630050687 N40.0 med refilled, pt sees Chronic neck pain 949234 0267 107 M54.2 on meds, stable Collagenous colitis 1931 1003 K52.831 finally better control of symptoms, weight up and symptoms down will see GI next week looks much better [id number] Gordy Woodard MD Main Office [address] [facility] [address] [place] [address] 06/01/2020 15:33:50 06/01/2020 16:32:14 Localized swelling of left lower leg 4340045803 9511666 R22.42 and pain LLE, but no erythema/h eat - will check stat d-dimer & duplex u/s advised CK of upcoming stat d-dimer [id number] Yeny shultz MD Telehealt h [address] [facility] [address] [place] [address] 06/06/2020 06:48:13 06/09/2020 12:09:18 Deep venous thrombosis of lower extremity 168984967 I82.409 new dx for pt, will refer to vascular to follow clot and assess lenght of treatment. Is tolerating eliquis well, no bleeding, no hx of malignancy , will have pt see urology for eval nad to rule out malignancy predisposi ng to DVT Benign pro static hyperplasia 226389277 N40.0 pt actually saw yesterday, note reviewed, they are getting a renal bladder US to rule out any malignancy in light of a new dx of unprovoked DVT exam showed BPH, no masses or nodules Collagenous colitis 1930 1003 K52.831 pt sees GI often, he states he is utd with his screening [id number] Yeny shultz MD Main Office [address] [facility] [address] [place], [place] [address] 06/15/2020 10:38:41 06/15/2020 11:25:57 Well controlled type 2 diabetes mellitus 489814436 E11.9 diet controlled , good control lost weight Hypercholesterolemia 136 81757 E78.00 continue meds Deep venou s thrombosis 618423002 I82.409 new, no obvious cause though was very sedentary with pandemic saw vascular, continue eliquis, reassess at 3 month tyrel, if all fine can stop eliquis, urology ordered some Us's to look for malignancy as associatin g factor. Collagenous colitis 1930 1003 K52.831 pt sees GI often, had a recent UGI, was smoking marijuana but has quit. [id number] Yeny shultz MD Main Office [address] [facility] [address] [place] [address] 08/26/2020 11:20:30 08/26/2020 11:45:13 Deep venous thrombosis 812064180 I82.409 see HPI left leg without pain or swelling, first unprovoked DVT except was more sedentary due to pandemic will refer to vascualr for f/u US and advice on length of tx, almost at 3 month tyrel, continu eliquis until instructio ns by vascular [id number] Yeny shultz MD Main Office [address] [facility] [address] [place] [address] 12/30/2020 10:14:49 12/30/2020 11:05:59 Insomnia [id number] G47.00 change of meds and he tried tapering down, will address with psychiatry Fatigue 42999094 R53.83 check labs Collagenous colitis 1930 1003 K52.831 flaring followed by GI Deep venou s thrombosis 446439549 I82.409 cotninue eliquis [id number] Yeny shultz MD Main Office [address] [facility] [address] [place] [address] 01/12/2021 10:17:01 01/12/2021 11:15:34 Adult health examination 256293916 Z00.00 utd on screening, limited by neck pain and neuropathi c foot pain, sees GI often due to collagenou s colitis Sees urology for BPH and they follow prostate exam Hypercholesterolemia 136 76658 E78.00 increase to 80mg due to LEL over 100 with DM, pt tolerates med well Well contr olled type 2 diabetes mellitus 412900029 E11.9 diet controlled recent A1C 6 Collagenous colitis 1930 1003 K52.831 flaring followed by GI Anxiety 66512512 F41.9 flared recently, pt looking for a psychiatri , has meds from last provider for another month, [id number] Yeny shultz MD Main Office [address] [facility] [address] [facility] [place] [address] 05/18/2021 11:18:07 05/18/2021 12:07:22 Hypercholesterolemia 52387961 E78.00 ibetter cholestero l on higher dose Dyspnea 445244213 R06.00 vague complaint, one is throat irritation , pt will see ent, other is with stairs gets sob, is deconditio theo and runs dehydrated , pt to hydrate, get CXR and labs and see if improved with heartrate not being so high Well contr olled type 2 diabetes mellitus 521013626 E11.9 diet controlled recent A1C 6 Throat irritation 600846 007 R07.0 pt to see ent [id number] Mina Anaya MD Main Office [address] [facility] [address] [place] [address] 08/16/2021 13:46:36 08/16/2021 15:07:07 Tachycardia 9110935 R00.0 EKG sinus tachycardi a, check labs, will need to see cardiology and have an echocardio gram. Dyspnea 394260148 R06.00 r/o chf Left upper quadrant pain 919848916 R10.12 r/o splenomega ly, mass pancreatic mass, CT appt is later today Left flank pain 80929696 9 R10.9 [id number] Mina Anaya MD Main Office [address] [facility] [address] [place] [address] 08/23/2021 11:19:07 08/23/2021 20:17:36 [id number] Yeny shultz MD Main Office [address] [facility] [address] [place] [address] 08/24/2021 14:21:06 08/24/2021 15:43:28 Essential hypertension 45295362 I10 pt with tachycardi a, DM poorly controlled , will start low dose metoprolol to help with pulse Fatigue 30152719 R53.83 check labs Tachycardia 6612305 R00. 0 baseline pulse 90-100, running higher in office, pt does not feel it, EKG with NSR, recent labs normal (CBC, thyroid, bnp) will refer to cardiology for eval, ? need for monitor and echo Type 2 [place] betes mellitus without complication 706625010 E11.9 poor control, recent weight gain nad A1C up form mid 6 to high 7, start metformin, stop candy, 2 week followup. [id number] Yeny shultz MD Main Office [address] [facility] [address] [place] [address] 09/07/2021 16:04:02 09/07/2021 16:47:35 Dyspnea on exertion 87565741 R06.09 will move up echo if possible and refer to pulmonary to do eval due to smoking history. will start symbicort as well [id number] Yeny shultz MD Main Office [address] [facility] [address] [place] [address] 10/26/2021 15:07:43 10/26/2021 16:07:07 Essential hypertension 28754360 I10 continue meds Well contr olled type 2 diabetes mellitus 420091896 E11.9 diet controlled recent A1C was up in 06/27 but lost 5ls, recheck 11/27 Steatotic liver disease 966675483 K76.0 knows to control sugars, lose weight and control cholestero l Dyspnea on exertion 6084 5006 R06.09 getting cardiac eval, nuclear stress nxt week, echo with a ? of silent [place], requested report Dr Taveras is cardiology [id number] LIZZ LOPEZ MD Main Office [address] [facility] [address] [place] [address] 02/01/2022 14:48:38 02/01/2022 15:24:11 Well controlled type 2 diabetes mellitus 893037407 E11.9 - well controlled - last HbA1c [...] your body's response to insulin. Essential hypertension 41111629 I10 - well controlled - BP today [...] awaiting results- will continue to monitor Tachycardia 3955586 R00. 0 - HR today 95- c/w metoprolol 25mg ER QD [id number] Yeny shultz MD Main Office [address] [facility] [address] [facility] [place] [address] 08/03/2022 13:49:57 08/03/2022 14:33:30 Essential hypertension 55402484 I10 continue meds, well controlled Obstructiv e sleep apnea syndrome 30907279 G47.33 CPAP Well contr olled type 2 diabetes mellitus 539389194 E11.9 recheck labs, lost weight Major depr ession in remission 41572439 F32.5 mood is well treated. Deep venou s thrombosis 671356055 I82.409 cotninue eliquis Hypercholesterolemia 136 98345 E78.00 ibetter cholestero l on higher dose [id number] LIZZ LOPEZ MD Main Office [address] [facility] [address] [facility] [place] [address] 12/06/2022 13:35:53 12/06/2022 14:22:11 Advance directive discussed with patient 580376862 Z71.89 - discussed MOLTS and HCP Adult heal th examination 015829608 Z00.00 Health Maintenanc e [place]) Patient was [...] or sooner if any acute complaints Anxiety 75525168 F41.9 - under good control- GEN-7 score 2- c/w clonazepam 0.5mg QD- desvenlafa xine succinate ER 100mg- counsellin g provided Benign pro static hyperplasia 020559783 N40.0 - c/w dutasterid e 0.5mg and terazosin 5mg QD Deep venou s thrombosis 642366455 I82.409 - CHADVASC 2 score of 4, unprovoked will need for lifestyle- c/w eliquis 2.5mg BID- counselled on bleeding risk- pt will no longer be following with hematology as MD is retiring Essential hypertension 66689629 I10 - well controlled - BP today [...] ve trouble with your vision. Hypercholesterolemia 136 75126 E78.00 - at goal- lipid panel 08/28: [...] and veggies. Obstructiv e sleep apnea syndrome 16694218 G47.33 - does not have CPAP machine, pt has never had one Steatotic liver disease 351274736 K76.0 - ordered AST/ALT levels Well contr olled type 2 diabetes mellitus 521677343 E11.9 - well controlled - last HbA1c [...] ular disease. Major depr ession in remission 02301362 F32.5 - under good control- PHQ-2 score of 1- c/w clonazepam 0.5mg QD- desvenlafa xine succinate ER 100mg- denies SI/HI- counsellin g provided Administra tion of pneumococcal vaccine 30175585 Z23 Varicella vaccination 68 513183 Z23 Collagenous colitis 1931 1003 K52.831 - c/w budesonide ER 3mg- under good control Hyperlipidemia 71544538 E78.5 Vitamin D deficiency 347 23362 E55.9 Abdominal aortic aneurysm 775368459 I71.40 [id number] LIZZ LOPEZ MD Main Office [address] [place] [address] 06/10/2023 10:42:37 06/10/2023 11:07:58 Anxiety 34137258 F41.9 - under good control- c/w clonazepam 0.5mg QD- desvenlafa xine succinate ER 100mg- counsellin g provided Essential hypertension 10643281 I10 - well controlled - BP today [...] ve trouble with your vision. Hypercholesterolemia 136 91141 E78.00 - elevated- lipid panel 12/29: cholestero [...] Well contr olled type 2 diabetes mellitus 502288432 E11.9 - well controlled - last HbA1c was 6.3 done on 12/07/22- c/w metformin 500mg QD- eye exam: 08/26/2022- foot exam: 05/07/2023 (does with plastic sewer )- on statin medication Pt counseled on [...] reduce your risk for cardiovasc ular disease. [id number] LIZZ LOPEZ MD Main Office [address] [address] 12/10/2023 10:07:08 12/10/2023 10:38:58 Adult health examination 679546859 Z00.00 [facility] Patient was counseled on healthy [...] or sooner if any acute complaints Anxiety 80228512 F41.9 - GEN-7 score of 7- under good control- c/w clonazepam 0.5mg QD- desvenlafa xine succinate ER 100mg- counsellin g provided Essential hypertension 30181536 I10 - well controlled - BP today [...] ve trouble with your vision. Hypercholesterolemia 136 63201 E78.00 - at goal- lipid panel 06/29: [...] and veggies. Obstructiv e sleep apnea syndrome 81183389 G47.33 - does not have CPAP machine, pt has never had one Steatotic liver disease 367151873 K76.0 - ordered AST/ALT levels Well contr olled type 2 diabetes mellitus 016733510 E11.9 - well controlled - last HbA1c was 6.4 done on 06/2023- c/w metformin 500mg BID- eye exam: 08/26/2022- foot exam: 05/07/2023 (does with plastic sewer )- on statin medication Pt counseled on [...] cardiovasc ular disease. Benign pro static hyperplasia 339551747 N40.0 - c/w dutasterid e 0.5mg and terazosin 5mg QD- will check on PSA Deep venou s thrombosis 649461466 I82.409 - CHADVASC 2 score of 4, unprovoked will need for lifestyle- c/w eliquis 2.5mg BID- counselled on bleeding risk- pt will no longer be following with hematology as MD is retiring Fatigue 91929954 R53.83 Z00.00 [id number] LIZZ LOPEZ MD Main Office [address] [facility] [place] [address] 06/08/2024 09:51:41 06/08/2024 10:22:55 Anxiety 38554723 F41.9 - under good control- c/w clonazepam 0.5mg QD- due patient's increase in stress will increase desvenlafa xine succinate ER 100mg to 125mg- counsellin g provided- RTC in 3 months Essential hypertension 73244079 I10 - elevated today- BP today 145/87 [...] ve trouble with your vision. Hypercholesterolemia 136 57459 E78.00 - at goal- lipid panel 12/30: [...] and veggies. Obstructiv e sleep apnea syndrome 63244611 G47.33 - does not have CPAP machine, pt has never had one Well contr olled type 2 diabetes mellitus 192964019 E11.9 - well controlled - last HbA1c was 6.2 done on 03/2024- c/w metformin 500mg BID- eye exam: 08/26/2022- foot exam: 05/07/2023 (does with plastic sewer )- on statin medication Pt counseled on [...] cardiovasc ular disease. Deep venou s thrombosis 072586961 I82.409 - CHADVASC 2 score of 4, unprovoked will need for lifestyle- c/w eliquis 2.5mg BID- counselled on bleeding risk- pt will no longer be following with hematology as is retiring [id number] LIZZ LOPEZ MD Main Office [address] [facility] [address] [place] [address] 09/08/2024 09:48:31 09/08/2024 10:20:19 Anxiety 42350119 F41.9 - under good control- c/w clonazepam 0.5mg QD- c/w desvenlafa xine succinate ER 125mg QD- counsellin g provided- RTC in 3 months Essential hypertension 12118603 I10 - at goal- BP today 127/69- [...] ve trouble with your vision. Hypercholesterolemia 136 30483 E78.00 - at goal- lipid panel 12/30: [...] Well contr olled type 2 diabetes mellitus 761528885 E11.9 - well controlled - last HbA1c [...] for cardiovasc ular disease. Steatotic liver disease 647693776 K76.0 - ordered AST/ALT levels Obstructiv e sleep apnea syndrome 43468093 G47.33 - does not have CPAP machine, pt has never had one Collagenous colitis 1930 1003 K52.831 - c/w budesonide ER 3mg- under good control Benign pro static hyperplasia 678249715 N40.0 - c/w dutasterid e 0.5mg and terazosin 5mg QD- will check on PSA Deep venou s thrombosis 046665192 I82.409 - CHADVASC 2 score of 4, unprovoked will need for lifestyle- c/w eliquis 2.5mg BID- counselled on bleeding risk- pt will no longer be following with hematology as is retiring Lipoma of back 137900740 D17.1 [id number] - pt wishes to have it removed- located near the left shoulder- pt referred to surgery [id number] LIZZ LOPEZ MD Main Office [address] [facility] [address] [facility] [place] [address] 01/12/2025 10:47:02 01/12/2025 11:35:13 Adult health examination 130007646 Z00.00 Health Maintenanc e [place]) Patient was [...] 08/06/2018 , 10/14/2018 (live)PPSV 23: 03/14/2010 PCV20: 12/07/2022O VID: 07/20/2020, 08/11/2020, 02/11/2021, 08/10/2021, 12/24/2022, 12/12/2023, 12/21/2024R SV: 03/23/2023 D) Routine blood work orderedE) Updated patient's history RTC in one year for annual exam or sooner if any acute complaints Anxiety 40802411 F41.9 - worsening, pt is worried about his mother who is not doing well- GEN-7 score of 8- c/w clonazepam 0.5mg QD- c/w desvenlafa xine succinate ER 125mg QD- kadie lagos provided- RTC in 3 months Essential hypertension 16097580 I10 - at goal- BP today 123/73- [...] ve trouble with your vision. Hypercholesterolemia 136 37563 E78.00 - at goal- lipid panel 12/30: [...] Well contr olled type 2 diabetes mellitus 719153992 E11.9 - well controlled - last HbA1c [...] for cardiovasc ular disease. Steatotic liver disease 630197228 K76.0 - ordered AST/ALT levels Obstructiv e sleep apnea syndrome 01642184 G47.33 - does not have CPAP machine, pt has never had one Collagenous colitis 193 1003 K52.831 - c/w budesonide ER 3mg- under good control Benign pro static hyperplasia 490847789 N40.0 - c/w dutasterid e 0.5mg and terazosin 5mg QD Deep venou s thrombosis 955889877 I82.409 - CHADVASC 2 score of 4, unprovoked will need for lifetime- c/w eliquis 2.5mg BID- counselled on bleeding risk- pt will no longer be following with hematology as MD is retiring Lipoma of back 424785878 D17.1 [id number] - pt wishes to have it removed- located near the left shoulder- pt referred to surgery -> declined at this time Fatigue 81195562 R53.83 Z00.00 Lumbar radiculopathy 128 548605 M54.16 43069 - worsening which is also affecting his mood- increased gabapentin dosage to 3600mg (1200mg TID)- ordered repeat MRI of the lumbar spine to check on severity- patient is not interested in surgical evaluation - if however interestin g in steroid injection, will refer after completion of MRI- patient does not want to be prescribed narcotic medication Mood disorder 20096913 F 39 78213 - PHQ-9 score of 10- due to [...] - FEP 111 Carlos Alberto Bey III [id number] Carlos Alberto Bey 01/12/2025 1 [place]: [place] [employer] Carlos Alberto Bey III [id number] Carlos Alberto Bey 01/22/2025 2 [place]GRAM 33A Carlos Alberto Bey [id number] Carlos Alberto Bey Notes Date Note Type [...] complaints at this time. LIZZ LOPEZ MD [address], [address], [facility] 06/10/2023 12:41:39 4 text/html Medicare Annual Wellness [...] is getting worse? No LIZZ LOPEZ MD [address] [facility] [address], [place], [address], [facility] 12/10/2023 10:45:25 5 text/html Hypertension F/UReported by PatientHPIFor lifestyle, patient [...] for new provider. LIZZ LOPEZ MD [address] [facility] [address], [place], [address], [facility] 06/08/2024 10:27:17 5 text/html Hypertension F/UReported by PatientHPIFor lifestyle, patient [...] who ordered insoles. LIZZ LOPEZ MD [address], [address], [facility] 09/08/2024 10:19:53 5 text/html Medicare Annual Wellness [...] getting worse? No LIZZ LOPEZ MD [address] [address], [place], [address], [facility] 01/12/2025 12:48:19
== END 2025-03-19 08:39 | disposition home or self-care (01) ==
LOC: HO.HPHYS 07:41
PROVIDERS: PCP Student in an Organized Health Care Education/Training Program; Visit Provider Physical Medicine & Rehabilitation
DX: M54.16 Radiculopathy, lumbar region (principal)
CPT/HCPCS: 62323

== ENCOUNTER 2025-03-19 07:41 | Outpatient (REF) | payer MEDICARE, BC, SELFPAY | END 2025-03-19 07:42 | disposition home or self-care (01) | LOC: HO.HPHYSR 07:41 | PROVIDERS: PCP Student in an Organized Health Care Education/Training Program; Visit Provider Physical Medicine & Rehabilitation | DX: M54.16 Radiculopathy, lumbar region (principal) | CPT/HCPCS: 62323; J2003; J3301; Q9967 ==